=== PATIENT | female | born 1960 | race Caucasian/White ===

== ENCOUNTER 2019-05-10 12:42 | Outpatient (CLI) | payer OTHER, SELFPAY ==
--- NOTE | 2019-05-10 12:53 | ECHO_ITS ---
Patient Info Name: Lexii Kim Age: 59 years : 1960 Gender: Female Ht: 63 in Wt: 200 lbs BSA: 2.05 m2 HR: 58 bpm BP: 132 / 87 mmHg Technical Quality: Good Exam Date: 05/10/2019 1:02 PM Exam Location: [facility] [place] Patient Status: Outpatient Admit Date: 05/10/2019 Staff Ordering Physician: Renny Rueda DO Contract Assistant: Brit Juan RDCS Attending Provider: Renny Rueda DO Referring Physician: Mohit SPAULDING; Exam Type: CA echo doppler color flow Study Info Indications I71.2 - Thoracic aortic aneurysm, without rupture Complete two-dimensional, color flow and Doppler transthoracic echocardiogram is performed. Summary 1. Left ventricular chamber dimension is normal. 2. Left ventricular systolic function is normal, estimated at 60-65%. 3. The left ventricular diastolic function is normal. 4. E/e' 8 is minimally elevated. 5. Global longitudinal strain is normal at -20.0%. 6. There is mild mitral valve regurgitation. 7. There is mild tricuspid valve regurgitation. 8. No pulmonary hypertension, estimated pulmonary arterial systolic pressure is 28 mmHg. Left Ventricle E/e' 8 is minimally elevated. Global longitudinal strain is normal at -20.0%. Left ventricular chamber dimension is normal. Left ventricular systolic function is normal, estimated at 60-65%. The left ventricular diastolic function is normal. Right Ventricle Right ventricular chamber dimension is normal. Right ventricular systolic function is normal. Left Atria Left atrial chamber dimension is normal. Right Atria Right atrial chamber dimension is normal. Aortic Valve The aortic valve is trileaflet. There is no aortic valve stenosis. There is no aortic valve regurgitation. Pulmonic Valve There is no pulmonic regurgitation. Mitral Valve There is no mitral valve stenosis. There is mild mitral valve regurgitation. Tricuspid Valve There is mild tricuspid valve regurgitation. No pulmonary hypertension, estimated pulmonary arterial systolic pressure is 28 mmHg. Pericardium/Pleural There is no pericardial effusion. Inferior Vena Cava Normal inferior vena cava with >50% collapse upon inspiration consistent with normal right atrial pressure, 5 mmHg. Aorta The aortic root size at the sinus of Valsalva is normal. Left Ventricular Outflow Tract Name Value Normal LVOT 2D LVOT Diameter 1.9 cm LVOT Doppler LVOT Peak Gradient 6 mmHg LVOT Mean Gradient 3 mmHg LVOT VTI 32 cm LVOT VTI/AV VTI Ratio 0.8 LVOT Stroke Volume 93 ml LVOT CO 4.5 l/min LVOT CI 2.2 l/min/m2 Pulmonic Valve Name Value Normal RVOT Doppler RVOT Peak Gradient
== END 2019-05-10 12:43 | disposition home or self-care (01) ==
PROVIDERS: Visit Provider Internal Medicine Cardiovascular Disease
DX: I71.2 Thoracic aortic aneurysm, without rupture (principal)
CPT/HCPCS: 93306

== ENCOUNTER 2019-08-03 14:50 | Outpatient (CLI) | payer OTHER, SELFPAY ==
--- NOTE | ~2019-08-03 | US_ITS ---
EXAMINATION: US pelvic complete DATE: 08/03/2019 16:33 INDICATION: Vaginal mass seen on physical examination. Abnormal vaginal bleeding. Comparison:No prior studies for comparison. TECHNIQUE: Multiple transabdominal sonographic images of the pelvis performed. FINDINGS: The uterus measures 5.4 x 2.3 x 3 cm. The endometrial complex is not visualized. There is a hypoechoic mass in the vaginal canal measuring 2.8 x 2.4 x 1 cm. Ovaries are not visualized. Examina tion is limited due to patient body habitus. The right ovary measures and the left ovary measures . There are small follicles in each ovary. There is no free fluid in the pelvis. There are no abnormal masses seen on either side. IMPRESSION: 1. Limited study. 2.8 cm hypoechoic mass located within the vaginal canal. Cannot exclude malignancy. Recommend further clinical evaluation. Reviewed, dictated and finalized at location A. IMPRESSION: 1. Limited study. 2.8 cm hypoechoic mass located within the vaginal canal. Anne ot exclude malignancy. Recommend further clinical evaluation.
== END 2019-08-03 14:51 | disposition home or self-care (01) ==
PROVIDERS: PCP Physician Assistant; Visit Provider Obstetrics & Gynecology Gynecology
DX: N89.9 Noninflammatory disorder of vagina, unspecified (principal)
CPT/HCPCS: 76856

== ENCOUNTER 2019-08-17 06:28 | Outpatient (CLI) | payer OTHER, SELFPAY ==
[2019-08-17 17:05] LABS: SARS-CoV-2 RNA PCR Negative
== END 2019-08-17 06:29 | disposition home or self-care (01) ==
LOC: ANHCOVIDDT 06:28
PROVIDERS: PCP Physician Assistant; Visit Provider Obstetrics & Gynecology Gynecology
DX: Z01.818 Encounter for other preprocedural examination (principal); Z11.59 Encounter for screening for other viral diseases
CPT/HCPCS: 87635; U0003

== ENCOUNTER 2019-08-17 08:44 | Outpatient (CLI) | payer OTHER, SELFPAY ==
--- NOTE | 2019-08-17 09:07 | ECG_ITS ---
Measurements Intervals [place] Rate: 50 P: 24 NH: 167 QRS: 18 QRSD: 83 T: 33 QT: 405 QTc: 372 Interpretive Statements SINUS BRADYCARDIA EARLY PRECORDIAL R/S TRANSITION BORDERLINE ECG Electronically Signed On 08-17-2019 9:33:09 CDT by Renny Rueda D.O.
--- NOTE | 2019-08-20 12:48 | OP_ITS ---
DATE OF PROCEDURE: 08/20/2019 PREOPERATIVE DIAGNOSIS: Vaginal mass. POSTOPERATIVE DIAGNOSIS: Vaginal mass. PROCEDURE PERFORMED: Excision of vaginal mass. SURGEON: Brandi Paz M.D. ANESTHESIA: General with LMA. ESTIMATED BLOOD LOSS: 5 cc. PATHOLOGY: Vaginal mass in pieces. DESCRIPTION OF PROCEDURE: The patient was taken to the operating room, placed under anesthesia in the dorsal lithotomy position. From the prep, the patient is having vaginal bleeding. The Miguelito speculum is required to be able to enter the vaginal canal. The speculum is opened laterally to allow visualization of the mass anteriorly into the right. The mass is grasped with coated pickups and using Bovie cautery circumferentially excised with the Bovie cautery. The base of the mass is amputated using Barcenas scissors. The defect is Bovie cauterized and Monsel's solution is applied. Good hemostasis is noted. With the prior radiation therapy, the tissue does not appear that it would hold sutures well, therefore the Bovie cautery and the Monsel's were used for hemostasis and closure. The instruments were removed. The patient was awakened from anesthesia and taken to Recovery in stable condition. D I MT: [facility]
== END 2019-08-17 08:45 | disposition home or self-care (01) ==
PROVIDERS: PCP Physician Assistant; Visit Provider Anesthesiology
DX: Z01.810 Encounter for preprocedural cardiovascular examination (principal); I10 Essential (primary) hypertension; R00.1 Bradycardia, unspecified
CPT/HCPCS: 93005

== ENCOUNTER 2019-08-20 02:00 | Day surgery (SDC) | payer OTHER, SELFPAY ==
[2019-08-14 16:32] VITALS: BMI 37.2
--- NOTE | 2019-08-20 08:03 | PM.HPGS ---
History of Present Illness History of Present Illness Consent: Risks, benefits, and alternatives have been discussed and questions answered. Patient agrees to proceed with procedure. Chief complaint: Vaginal Mass Narrative: Lexii Kim is a 59 year old female with a 12 year history of rectal and vaginal bleeding. 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 Her GI and oncology have followed her GI issues due to prior rectal/anal carcinoma. Patient recently saw urologist due to left kidney at minimal function due to obstruction. Patient states urologist told her she has a vaginal mass that is bleeding so patient was referred to me. Discussed with patient that the lesion appears very vascular. Recommend to further evaluate under anesthesia and biopsy. Possible pathology discussed with the patient. Risks of infection, bleeding, and injury to surrounding organs discussed with patient. Risks of poor healing reviewed with history of radiation. Patient agrees to proceed. 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) Essential hypertension Heart murmur Hydroureter (normal spontaneous vaginal delivery) x 3 Radiation proctitis Renal atrophy CKD-3A Surgical History Surgical History (Updated 08/20/19 @ 08:10 by Brandi Paz MD) History of cholecystectomy History of hernia repair History of laminectomy S/P tubal ligation Family History Family History (Updated 04/24/19 @ 13:08 by Fina Walter CMA) Father Heart disease Hypertension Mother Hypertension Renal disease Sibling Hypertension IBS (irritable bowel syndrome) Irregular heart beat Social History Social History (Updated 04/24/19 @ 13:08 by Fina Walter CMA) Smoking status: Never smoker Alcohol intake: current Gender identity (if verbalized by the patient): Female Meds Home Medications and Allergies Home Medications Medication Instructions Recorded Confirmed Type cholecalciferol (vitamin D3) 25 25 mcg PO DAILY 04/23/19 08/14/19 History mcg (1,000 unit) capsule hydrocortisone 2.5 % topical cream 1 applic TOPICAL DAILY PRN gm 04/23/19 08/14/19 History hydrocortisone acetate 25 mg 25 mg RECTAL DAILY 04/23/19 08/14/19 History rectal suppository hyoscyamine sulfate 0.125 mg tablet 0.125 mg PO Q4H PRN tablet 04/23/19 08/14/19 History mecobalamin (vitamin B12) 1,000 1,000 mcg SUBLINGUAL DAILY 04/23/19 08/14/19 History mcg disintegrating tablet,sublingual acetaminophen 650 mg 650 mg PO Q12H 04/24/19 08/14/19 History tablet,extended release lisinopril 10 mg tablet 10 mg PO DAILY #30 tablet 04/24/19 08/14/19 Rx metoprolol succinate [Toprol XL] 12.5 mg PO BID 08/14/19 08/14/19 History Allergies Allergy/AdvReac Type Severity Reaction Status Date / Time No Known Allergies Allergy Verified 08/14/19 17:06 Exam Const: General: healthy appearing and alert Orientation/consciousness: patient oriented x3 Cardio: Rate: regular rate Rhythm: regular rhythm GI: GI Palp: Yes Soft to palpation, No Tenderness to palpation present (GI) and No Palpable mass present : External Female Exam: normal external appearance and other (atrophic) Speculum Exam - Vagina: vaginal bleeding, mass (purple, exophytic mass in mid,upper, monica. 2 cm, soft, feels eroded distal) and other (radiation changes; ) Speculum Exam - Cervix: normal appearance of the cervix Bimanual exam- vagina & uterus: uterine size normal and consistency normal Bimanual Exam- Adnexa, other: normal adnexae and No adnexal tenderness Neuro: General: patient oriented x3 Assessment and Plan Assessment and plan (1) Vaginal mass: Code(s): N89.8 - Other specified noninflammatory disorders of vagina Status: Acute Assessmen
[2019-08-20] MEDS: LACTATED RINGERS 1,000 ML 30 ML IV CONT (10:00)
--- NOTE | 2019-08-20 10:29 | WPDANESEPPF ---
Anes - Initial Pre Proc Eval Procedure: Operation Date: 08/20/19 11:30 Proposed Procedures p Vaginal Core Biopsy - Brandi Paz MD Date/Time: 08/20/19 10:29 Surgeon: Brandi Paz MD Pre Op Diagnosis: Vaginal Mass Patient Data Age: 59 Gender: F Height: 5 ft 3 in Weight: 96.4 kg Allergies Allergy/AdvReac Type Severity Reaction Status Date / Time No Known Allergies Allergy Verified 08/20/19 09:48 Home Medications Medication Instructions Recorded Confirmed Type cholecalciferol (vitamin D3) 25 25 mcg PO DAILY 04/23/19 08/14/19 History mcg (1,000 unit) capsule hydrocortisone 2.5 % topical cream 1 applic TOPICAL DAILY PRN gm 04/23/19 08/14/19 History hydrocortisone acetate 25 mg 25 mg RECTAL DAILY 04/23/19 08/14/19 History rectal suppository hyoscyamine sulfate 0.125 mg tablet 0.125 mg PO Q4H PRN tablet 04/23/19 08/14/19 History mecobalamin (vitamin B12) 1,000 1,000 mcg SUBLINGUAL DAILY 04/23/19 08/14/19 History mcg disintegrating tablet,sublingual acetaminophen 650 mg 650 mg PO Q12H 04/24/19 08/14/19 History tablet,extended release lisinopril 10 mg tablet 10 mg PO DAILY #30 tablet 04/24/19 08/14/19 Rx metoprolol succinate [Toprol XL] 12.5 mg PO BID 08/14/19 08/20/19 History Patient hx anesthesia problems: none Family hx anesthesia problems: none PMFSH Past Medical History Medical History Anemia Arthritis 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) Essential hypertension Heart murmur Hydroureter (normal spontaneous vaginal delivery) x 3 Radiation proctitis Renal atrophy CKD-3A Surgical History Surgical History History of cholecystectomy History of hernia repair History of laminectomy S/P tubal ligation Family History Family History Father Heart disease Hypertension Mother Hypertension Renal disease Sibling Hypertension IBS (irritable bowel syndrome) Irregular heart beat Social History Social History Smoking status: Never smoker Alcohol intake: current Gender identity (if verbalized by the patient): Female Anes - Eval Final PreProcedure Day of Procedure 08/20/19 10:29 Patient weight: obese Heart: regular rate and rhythm Lungs: clear to auscultation Airway: Mallampati scale class II Neurological: alert and oriented Last oral intake: >/= 8 hours ASA classification: III Emergent: no Anesthetic plan: proceed Anesthesia type and monitoring: general GIVS and standard monitoring Informed Consent: The patient's anesthetic plan and its attendant risks and benefits were discussed with the patient/family/POA. Questions were solicited and answers provided to the satisfaction of the patient/family/POA.
[2019-08-20] MEDS: LIDO 1%/EPINEPHRINE 1:100,000 20 ML VIAL INFILTRATE (11:32)
[2019-08-20 12:00] VITALS: BP 169/102; PULSE 86; RESP 19; TEMP 36.3; O2SAT 99
--- NOTE | 2019-08-20 12:00 | PM.OP ---
Procedure Note - Brief Procedure Note - Brief Date of procedure: 08/20/19 Pre-op diagnosis: Vaginal Mass Post-op diagnosis: same Procedure performed: excision of vaginal mass Anesthesia: GLMA Surgeon: Brandi Paz MD Estimated blood loss (mL): 5 Drains: No Packing: No Pathology: yes (vaginal mass in pieces) Complications: No immediate complications Condition: stable Disposition: PACU Findings: purple mass anterior right mid vagina
--- NOTE | 2019-08-20 12:05 | OP_ITS ---
This report was moved to the correct visit, [id number] on 08/21/2019. Original report was signed by Dr. Brandi Paz on 08/20/2019 at 1529. DATE OF PROCEDURE: 08/20/2019 PREOPERATIVE DIAGNOSIS: Vaginal mass. POSTOPERATIVE DIAGNOSIS: Vaginal mass. PROCEDURE PERFORMED: Excision of vaginal mass. SURGEON: Brandi Paz M.D. ANESTHESIA: General with LMA. ESTIMATED BLOOD LOSS: 5 cc. PATHOLOGY: Vaginal mass in pieces. DESCRIPTION OF PROCEDURE: The patient was taken to the operating room, placed under anesthesia in the dorsal lithotomy position. From the prep, the patient is having vaginal bleeding. The Miguelito speculum is required to be able to enter the vaginal canal. The speculum is opened laterally to allow visualization of the mass anteriorly into the right. The mass is grasped with coated pickups and using Bovie cautery circumferentially excised with the Bovie cautery. The base of the mass is amputated using Barcenas scissors. The defect is Bovie cauterized and Monsel's solution is applied. Good hemostasis is noted. With the prior radiation therapy, the tissue does not appear that it would hold sutures well, therefore the Bovie cautery and the Monsel's were used for hemostasis and closure. The instruments were removed. The patient was awakened from anesthesia and taken to Recovery in stable condition. Taylor I MT: [facility] Dictated By: Brandi Paz MD 08/20/19 1205 Transcribed Date/Time: 08/20/19 1240 Signed By: Brandi Paz MD 08/20/19 [id number] [facility]
[2019-08-20 12:15] VITALS: BP 113/70; PULSE 58; RESP 13; O2SAT 96
[2019-08-20 12:24] VITALS: BP 140/63; PULSE 62; RESP 14
[2019-08-20 13:05] VITALS: BP 129/66; PULSE 52; RESP 14
== END 2019-08-20 13:20 | disposition home or self-care (01) ==
PROVIDERS: PCP Physician Assistant; Visit Provider Obstetrics & Gynecology Gynecology
PROC: (CPT 57135; principal; 2019-08-20 11:30)
DX: N76.5 Ulceration of vagina (principal); Z85.048 Personal history of other malignant neoplasm of rectum, rectosigmoid junction, and anus; Z92.21 Personal history of antineoplastic chemotherapy; Z92.3 Personal history of irradiation; K62.7 Radiation proctitis; I12.9 Hypertensive chronic kidney disease with stage 1 through stage 4 chronic kidney disease, or unspecified chronic kidney disease; N18.3 Chronic kidney disease, stage 3 (moderate)
CPT/HCPCS: 57135; 88304; 88305; A9270; J0330; J1100; J1200; J2001; J2250; J2405; J3010; J7120

== ENCOUNTER 2019-11-01 12:53 | Outpatient (CLI) | payer OTHER, SELFPAY ==
--- NOTE | ~2019-11-01 | US_ITS ---
EXAMINATION: US venous doppler LE RT EXAM DATE: 11/01/2019 14:02 INDICATION: Right foot, ankle swelling. TECHNIQUE: Multiple grayscale, color flow and Doppler images of the right lower extremity deep venous system were obtained and reviewed. There is no prior study for comparison. FINDINGS: The right common femoral, femoral and profunda veins demonstrate normal color flow, respira tory variation, augmentation and compressibility. Compressibility, color flow confirmed within the r ight popliteal, posterior tibial, peroneal, and greater saphenous veins. IMPRESSION: 1. No right lower extremity deep venous thrombosis. Reviewed, dictated and finalized at location A.
--- NOTE | ~2019-11-01 | DEXA_ITS ---
Bone Density Report Name: Lexii Kim Age: 59 Sex: Female Ethnicity: White Date of : 1960 Indication: postmenopausal; parental hip fracture; height loss; prior fracture; cancer; Referring Provider: YUSRA DOWNING Study: Bone densitometry was performed. Exam Date: November 01, 2019 Accession number: [id number] Bone Density: Region BMD T-score Z-score Classification AP Spine (L1-L4) 0.897 -1.4 0.1 Osteopenia Femoral Neck (Left) 0.707 -1.3 0.0 Osteopenia Total Hip (Left) 0.837 -0.9 0.1 Normal Total Hip Bilateral Avg 0.804 -1.1 -0.2 Osteopenia Femoral Neck (Right) 0.618 -2.1 -0.8 Osteopenia Total Hip (Right) 0.769 -1.4 -0.4 Osteopenia World Health Organization criteria for BMD impression classify patients as: Normal (T-score at or above -1.0), Osteopenia (T-score between -1.0 and -2.5), or Osteoporosis (T-score at or below -2.5). 10-year Fracture Risk(1): Major Osteoporotic Fracture 28% Hip Fracture 2.0% Reported Risk Factors: [place] (), Neck BMD=0.618, BMI=39.3, previous fracture, parental fracture (1) FRAX(R) Version 3.08. Fracture probability calculated for an untreated patient. Fracture probability may be lower if the patient has received treatment. Clinical Information Provided by Patient: Has had a low trauma fracture Parent has had a hip fracture Has used the following medications: Vitamin D Has the following medical conditions: Cancer Patient maximum height was 63.5 Menopause Age: 39 No regular weight bearing exercise Does not regularly consume dairy products Onset of menses at age 13 Number of children 3 Impression: The patient has low bone mass, based on the Right Femoral Neck T-score. The patient has an estimated ten-year risk of hip fracture of 2% and an estimated ten-year risk of major fracture of 28%, based on the WHO FRAX algorithm. The patient has risk factors, including: parental hip fracture, previous fracture. Discussion: BONE DENSITY IS LOW AT ONE OR MORE SKELETAL SITES. THE PATIENT'S BMD AND CLINICAL RISK FACTORS CONTRIBUTE TO THIS PATIENT'S INCREASED RISK OF FRACTURE. This patient's lowest T-score is low at one or more skeletal sites. It meets the World Health Organization's (WHO) criteria for ?low bone mass? (T-score between -1.0 and -2.5). The patient's 10-year risk of a major osteoporotic fracture as calculated by FRAX exceeds the threshold where pharmacological therapy is recommended by the National Osteoporosis Foundation (NOF). However, all treatment decisions require clinical judgment and consideration of individual patient factors, including patient preferences, comorbidities, previous drug use, risk factors not captured in the FRAX model (e.g., frailty, falls, vitamin D deficiency, increased bone turnover, interval significant decline in bone densit
== END 2019-11-01 12:54 | disposition home or self-care (01) ==
PROVIDERS: PCP Physician Assistant; Visit Provider Obstetrics & Gynecology Gynecology
DX: Z78.0 Asymptomatic menopausal state (principal); M79.89 Other specified soft tissue disorders; M85.88 Other specified disorders of bone density and structure, other site; M85.852 Other specified disorders of bone density and structure, left thigh; M85.851 Other specified disorders of bone density and structure, right thigh
CPT/HCPCS: 77080; 93971

== ENCOUNTER 2020-01-23 11:29 | Emergency (ER) | payer OTHER, SELFPAY ==
--- NOTE | ~2020-01-23 | US_ITS ---
EXAMINATION:US venous doppler LE RT INDICATION:Right leg pain TECHNIQUE: Multiple grayscale, color flow and Doppler images of the right lower extremity deep venous systems were obtained and reviewed. COMPARISON:11/01/2019 FINDINGS: The common femoral, superficial femoral and popliteal veins demonstrate normal respiratory variation, augmentation and compressibility. Color flow is also seen within the posterior tibial, pe roneal, greater saphenous and profunda veins. IMPRESSION: 1: No lower extremity deep venous thrombosis. Reviewed, dictated and finalized at location B.
[2020-01-23 11:45] VITALS: BP 168/95; PULSE 74; RESP 20; TEMP 36.1; O2SAT 97
--- NOTE | 2020-01-23 12:03 | ED.GENADULT ---
HPI - General Adult General Chief complaint: Extremity Injury, Lower Stated complaint: Shooting pain in r leg Source: patient Mode of arrival: ambulatory Limitations: no limitations History of Present Illness HPI narrative: Lexii is a 59F with a PMH of obesity, HTN, OA, anemia, thoracic aortic aneurysm and renal atrophy that presented to the ED with right lower extremity pain. She has had pain that is gradually getting worse for about a month. It started after she was diagnosed with a mild case of COVID19. It is worse when she is sitting with the leg dangling or with dorsiflexion of the foot but can be better with walking. Pain is worse on the lateral side. No erythema or warmth reported. Sometimes she gets a tingling pain that shoots to her foot or up her leg. No CP, SOB or syncope. No trauma reported. Related Data Home Medications Medication Instructions Recorded Confirmed cholecalciferol (vitamin D3) 25 25 mcg PO DAILY 04/23/19 01/23/20 mcg (1,000 unit) capsule acetaminophen 650 mg 650 mg PO Q12H 04/24/19 01/23/20 tablet,extended release metoprolol succinate [Toprol XL] 12.5 mg PO BID 08/14/19 01/23/20 Allergies Allergy/AdvReac Type Severity Reaction Status Date / Time No Known Allergies Allergy Verified 10/16/19 13:52 Review of Systems Constitutional: Constitutional: Reports no additional constitutional complaints Eyes: Eyes: Reports no additional eye complaints ENT: Reports system reviewed and no additional complaints, except as documented Cardiovascular: Cardiovascular: Reports no additional cardiovascular complaints Respiratory: Respiratory: Reports no additional respiratory complaints Gastrointestinal: Gastrointestinal: Reports no additional gastrointestinal complaints Musculoskeletal: Musculoskeletal: Reports as per HPI Integumentary/Breasts: Skin/Breast: Reports system reviewed and no additional complaints, except as docu Neurologic: Reports system reviewed and no additional complaints, except as documented Psychiatric: Psychiatric: Reports no additional psychiatric complaints Endocrine: Endocrine: Reports no additional endocrine complaints Hematologic/Lymphatic: Hematologic/Lymphatic: Reports no additional hematologic/lymphatic complaints Allergic/Immunologic: Allergic/Immunologic: Reports no additional allergic/immunologic complaints [facility] Past Medical History Medical History (Updated 01/23/20 @ 13:19 by Raffy King DO) Anemia Arthritis 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) Essential hypertension Heart murmur Hydroureter (normal spontaneous vaginal delivery) x 3 Radiation proctitis Renal atrophy CKD-3A Surgical History Surgical History History of cholecystectomy History of hernia repair History of laminectomy S/P tubal ligation Family History Family History Father Heart disease Hypertension Mother Hypertension Renal disease Sibling Hypertension IBS (irritable bowel syndrome) Irregular heart beat Social History Social History Smoking status: Never smoker Alcohol intake: current Gender identity (if verbalized by the patient): Female Exam Const: General: no acute distress Orientation/consciousness: patient oriented x3 HENMT: Head: normal to inspection Eyes: Conjunctivae: conjunctivae normal Pupils: Equal, round and reactive pupils present Neck: Neck: normal visual inspection Chest: Chest palpation & inspection: normal inspection of the chest Resp: Effort & Inspection: normal respiratory effort Cardio: Rate: regular rate Skin: General skin exam: normal color Rashes: no rashes Neuro: General: patient oriented x3 and moves all extremities Extrem: Other: Right calf had significant varicose veins, was a few cm larger in cir
[2020-01-23 12:19] LABS: Hematocrit 36.6 % (35.0-49.0); Hemoglobin 11.9 g/dL (12.0-15.0); Mean Corpuscular HGB Conc 32.5 g/dL (32.0-36.0); Mean Corpuscular Hemoglobin 29.3 pg (27.0-31.0); Mean Corpuscular Volume 90.1 fL (78.0-102.0); Platelet Count Result 251 K/mm3 (150-420); Red Blood Count 4.06 M/mm3 (4.20-5.40); Red Cell Distribution Width 13.7 % (11.6-14.4); White Blood Count 3.9 K/mm3 (4.8-10.8)
[2020-01-23 12:43] LABS: Band Neutrophils Percent 0 % (0-6); Eosinophils Absolute Manual 0.15 K/mm3 (0.02-0.5); Eosinophils Percent Manual 4 % (1-6); Lymphocytes Percent Manual 36 % (18-44); Monocytes Absolute Manual 0.35 K/mm3 (0.1-0.90); Monocytes Percent Manual 9 % (3-9); Neutrophils Absolute Manual 1.98 K/mm3 (1.7-7.2); Neutrophils Percent Manual 51 % (46-73); Platelet Estimate Adequate (Adequate); Total Cells Counted 100
[2020-01-23 12:49] LABS: Thyroid Stimulating Hormone 0.76 uIU/mL (0.36-3.74)
[2020-01-23 13:03] LABS: Alanine Aminotransferase 18 U/L (14-59); Albumin Level 3.6 g/dL (3.4-5.0); Alkaline Phosphatase 80 U/L (46-116); Anion Gap 7 mmol/L (8-16); Aspartate Amino Transferase < 10 U/L (15-37); Bilirubin,Total 0.5 mg/dL (0.00-1.00); Blood Urea Nitrogen 15 mg/dL (7-18); Calcium 8.9 mg/dL (8.5-10.1); Carbon Dioxide 29 mmol/L (21-32); Chloride 104 mmol/L (98-108); Estimated CRCL calculation 74 ml/min; Estimated Glomerular Filt Rate > 60; Folic Acid 15.2 ng/mL (8.6->20); Glucose 95 mg/dL (70-99); Osmolality Calculated 290 mOsm/kg (285-295); Potassium 4.3 mmol/L (3.5-5.1); Sodium 140 mmol/L (136-145); Total Protein 7.4 g/dL (6.4-8.2); Vitamin B12 388 pg/mL (193-986)
[2020-01-23] MEDS: ACETAMINOPHEN 500 MG TABLET 1000 MG PO (13:12)
[2020-01-23 13:24] VITALS: BP 168/94; PULSE 67; RESP 20; TEMP 36.9; O2SAT 99
== END 2020-01-23 13:32 | disposition home or self-care (01) ==
PROVIDERS: Emergency Provider Family Medicine; PCP Physician Assistant
DX: M79.604 Pain in right leg (principal)
CPT/HCPCS: 36415; 80053; 82607; 82746; 84443; 85025; 93971; 99283; 99284

== ENCOUNTER 2020-01-30 14:51 | Outpatient (CLI) | payer OTHER, SELFPAY ==
--- NOTE | ~2020-01-30 | US_ITS ---
EXAMINATION: US soft tissue LE RT DATE: 01/30/2020 15:18 INDICATION: Synovial cyst in the right popliteal space. TECHNIQUE: Multiple grayscale and Doppler ultrasound images of the right popliteal fossa were obtaine d. COMPARISON: None FINDINGS: The popliteal and gastrocnemius arteries and veins appear normal in caliber at the popliteal fossa. N o Matamoros's cyst or other abnormal masses or fluid collections identified at the popliteal fossa. IMPRESSION: 1. No Matamorso's cyst or other abnormal masses or fluid collections at the popliteal fossa. Reviewed, dictated and finalized at location B. IMPRESSION: 1. No Matamoros's cyst or other abnormal masses or fluid collections at the poplite al fossa.
== END 2020-01-30 14:52 | disposition home or self-care (01) ==
PROVIDERS: PCP Physician Assistant; Visit Provider Physician Assistant
DX: M71.21 Synovial cyst of popliteal space [Baker], right knee (principal)
CPT/HCPCS: 76882

== ENCOUNTER 2020-05-08 09:03 | Outpatient (CLI) | payer OTHER, SELFPAY ==
[2020-05-08 10:13] LABS: Alanine Aminotransferase 17 U/L (14-59); Albumin Level 3.6 g/dL (3.4-5.0); Alkaline Phosphatase 76 U/L (46-116); Anion Gap 8 mmol/L (8-16); Aspartate Amino Transferase 10 U/L (15-37); Bilirubin,Total 0.6 mg/dL (0.00-1.00); Blood Urea Nitrogen 18 mg/dL (7-18); Calcium 9.3 mg/dL (8.5-10.1); Carbon Dioxide 31 mmol/L (21-32); Chloride 102 mmol/L (98-108); Cholesterol 206 mg/dL (0-200); Estimated Glomerular Filt Rate > 60; Glucose 93 mg/dL (70-99); HDL Direct 67 mg/dL (40-60); LDL Cholesterol Calculated 120 mg/dL (<130); Osmolality Calculated 293 mOsm/kg (285-295); Potassium 4.2 mmol/L (3.5-5.1); Sodium 141 mmol/L (136-145); Total Protein 7.2 g/dL (6.4-8.2); Triglycerides 94 mg/dL (0-150)
== END 2020-05-08 09:04 | disposition home or self-care (01) ==
PROVIDERS: Visit Provider Internal Medicine Cardiovascular Disease
DX: I10 Essential (primary) hypertension (principal)
CPT/HCPCS: 36415; 80053; 80061

== ENCOUNTER 2020-05-13 08:27 | Outpatient (CLI) | payer OTHER, SELFPAY ==
--- NOTE | ~2020-05-13 | CT_ITS ---
EXAMINATION: CTA chest DATE: 05/13/2020 09:46 INDICATION: Thoracic aortic aneurysm without rupture. TECHNIQUE: Computed tomographic angiography (CTA) of the chest was performed with 100 mL Omnipaque-35 0 intravenous contrast. Automated exposure control and iterative reconstruction technique were employ ed. The dose-length product was 1905.60 mGy-cm. Maximum intensity projection 3D-reconstructions of th e aorta and other arteries were constructed by the technologist on a separate workstation. COMPARISON: PET CT 12/31/2004 FINDINGS: There is minimal atelectasis in the lungs. Calcified pulmonary nodules are consistent with old granulomatous disease. No pleural effusion. The heart size is normal. No pericardial effusion. Th e aorta measures 3.6 cm at the sinuses of Valsalva, 4.2 cm in the mid ascending aorta, 2.6 cm at the isthmus, and 2.4 cm in the descending aorta. There is moderate thoracic spondylosis. IMPRESSION: 1. Ectasia of ascending aorta measuring 4.2 cm. Reviewed, dictated and finalized at location A. 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
--- NOTE | ~2020-05-13 | CT_ITS ---
EXAMINATION: CTA abdomen pelvis DATE: 05/13/2020 09:47 INDICATION: Right lower extremity pain and swelling. TECHNIQUE: Computed tomographic angiography (CTA) of the abdomen and pelvis was performed with 100 mL Omnipaque-350 intravenous contrast. Automated exposure control and iterative reconstruction techniqu e were employed. The dose-length product was 1905.60 mGy-cm. Maximum intensity projection 3D-reconstr uctions were constructed by the technologist on a separate workstation. COMPARISON: CT abdomen and pelvis 10/18/2017 FINDINGS: The visualized portions of the lung bases demonstrate minimal atelectasis. A calcified left lung nodule is consistent with old granulomatous disease. No pleural effusion. The heart size is nor mal. No pericardial effusion. There is a 6 mm cyst in the liver. There are changes of cholecystectomy . The spleen, pancreas, adrenal glands, and right kidney are normal. 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 There is severe atrophy of left kidney. There is severe left hydronephrosis and hydroureter. There is a 3 mm stone in distal left ureter. There is diverticulosis of the colon wi thout evidence of diverticulitis. The appendix is normal. There is a small sliding hiatal hernia. The re are no pathologically enlarged lymph nodes. There is no free intraperitoneal fluid. There is no de ep vein thrombosis. There is severe lower lumbar spondylosis. IMPRESSION: 1. No deep vein thrombosis. 2. Chronic 3 mm stone in distal left ureter with severe left hydronephrosis and hydroureter and sever e left kidney atrophy. 3. Small sliding hiatal hernia. Reviewed, dictated and finalized at location A. [facility] IMPRESSION: 1. No deep vein thrombosis. 2. Chronic 3 mm stone in distal left ureter with severe left hydronephrosis and hydroureter and severe left kidney atrophy. 3. Small sliding hiatal hernia.
== END 2020-05-13 08:28 | disposition home or self-care (01) ==
LOC: CHSIMG 08:28
PROVIDERS: PCP Family Medicine; Visit Provider Internal Medicine Cardiovascular Disease
DX: R22.41 Localized swelling, mass and lump, right lower limb (principal); M79.604 Pain in right leg; I71.2 Thoracic aortic aneurysm, without rupture
CPT/HCPCS: 71275; 74174; Q9967

== ENCOUNTER 2020-07-25 11:09 | Emergency (ER) | payer OTHER, SELFPAY ==
--- NOTE | 2020-07-25 11:16 | ED.GENADULT ---
HPI - General Adult General Chief complaint: Skin/Abscess/Foreign Body Stated complaint: pos yeast infection Time Seen by Provider: 07/25/20 11:17 Source: patient Mode of arrival: ambulatory Limitations: no limitations History of Present Illness HPI narrative: 60-year-old female patient presents to the [facility] with complaints of a rash to the left fold of the hip area x2 days. Patient states that it is slightly itching and feels burning. Patient states that she is gotten these before but is typically been in the summertime. Related Data Home Medications Medication Instructions Recorded Confirmed cholecalciferol (vitamin D3) 25 25 mcg PO DAILY 04/23/19 07/25/20 mcg (1,000 unit) capsule metoprolol succinate [Toprol XL] 12.5 mg PO BID 08/14/19 07/25/20 gabapentin 300 mg PO TID 07/25/20 07/25/20 Allergies Allergy/AdvReac Type Severity Reaction Status Date / Time No Known Allergies Allergy Verified 07/25/20 11:23 Review of Systems Review of Systems: Narrative: CONSTITUTIONAL: Denies fever, chills, or sweats. EYES: Denies visual changes, redness, or discharge. ENT: Denies rhinorrhea, congestion, sore throat, or otalgia. CARDIOVASCULAR: Denies chest pain, palpitations, or edema. RESPIRATORY: Denies cough or dyspnea. GASTROINTESTINAL: Denies abdominal pain, nausea, vomiting, or diarrhea. GENITOURINARY: Denies dysuria or hematuria. SKIN: Positive rash with itching and burning to left thigh/hip area x2 days MUSCULOSKELETAL: Denies back pain, joint pain, or myalgia. NEUROLOGIC: Denies headache, numbness, or weakness. PSYCHIATRIC: Denies anxiety or depression. FOR[facility]LY [facility] Past Medical History Medical History (Updated 07/25/20 @ 11:30 by SAMY Huang) Anemia Arthritis 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) Essential hypertension Heart murmur Hydroureter (normal spontaneous vaginal delivery) x 3 Radiation proctitis Renal atrophy CKD-3A Surgical History Surgical History History of cholecystectomy History of hernia repair History of laminectomy S/P tubal ligation Family History Family History Father Heart disease Hypertension Mother Hypertension Renal disease Sibling Hypertension IBS (irritable bowel syndrome) Irregular heart beat Social History Social History Smoking status: Never smoker Alcohol intake: current Gender identity (if verbalized by the patient): Female Comments At the time of my signature I agree with nursing past medical history, surgical, social, and family history. There is no relevant family history pertinent to the presenting complaint. Exam Narrative: Exam Narrative: GENERAL: Well-appearing, well-nourished, and in no acute distress. HEAD: Normocephalic, atraumatic. EYES: PERRLA and EOMI. ENT: Nares clear, no rhinorrhea or epistaxis. Mucous membranes moist. NECK: Supple. No lymphadenopathy CHEST: Clear to auscultation. No respiratory distress. HEART: Regular rate and rhythm. No murmur heard. Normal peripheral pulses. ABDOMEN: Soft, nontender, nondistended, normal active bowel sounds. EXTREMITIES: Normal range of motion. No edema. SKIN: Warm, dry, patient has erythemic flat shiny rash noted to the fold of the left hip area. There is no open wounds or drainage noted at this time. The rash along the fold line measures approximately 10 cm. NEURO: No focal deficits. Alert and oriented x3. Course Vital Signs Vital signs: Vital Signs Temperature 36.6 C 07/25/20 11:18 Pulse Rate 70 07/25/20 11:18 Respiratory Rate 16 07/25/20 11:18 Blood Pressure 152/94 H 07/25/20 11:18 Pulse Oximetry 100 07/25/20 11:18 Temperature 36.6 C 07/25/20 11:18 Pulse Rate 70 07/25/20 11:18 Respiratory Rate 16 07/25/20 11:18 Blood Pressure 152/94 H
[2020-07-25 11:18] VITALS: BP 152/94; PULSE 70; RESP 16; TEMP 36.6; O2SAT 100
== END 2020-07-25 11:35 | disposition home or self-care (01) ==
PROVIDERS: Emergency Provider Nurse Practitioner Family; PCP Physician Assistant
DX: B37.2 Candidiasis of skin and nail (principal); M19.90 Unspecified osteoarthritis, unspecified site; I12.9 Hypertensive chronic kidney disease with stage 1 through stage 4 chronic kidney disease, or unspecified chronic kidney disease; N18.30 Chronic kidney disease, stage 3 unspecified; Z85.048 Personal history of other malignant neoplasm of rectum, rectosigmoid junction, and anus; R01.1 Cardiac murmur, unspecified
CPT/HCPCS: 99213; G0463

== ENCOUNTER 2020-11-27 20:40 | Emergency (ER) | payer OTHER, SELFPAY ==
[2020-11-27 20:44] VITALS: BP 184/87; PULSE 70; RESP 18; TEMP 36.8; O2SAT 100
[2020-11-27 21:01] VITALS: BP 176/97; PULSE 61; RESP 18; TEMP 36.7; O2SAT 100
--- NOTE | 2020-11-27 21:39 | ED.EYEPROB ---
HPI - Eye Problem General Chief complaint: Eye Problems Stated complaint: cyst that caused bleeding around eye Time Seen by Provider: 11/27/20 21:19 History of Present Illness HPI Narrative: Patient presents with a cyst on her right eye. Patient ports she had a cyst for the past few months over the past couple days she has had increasing pain and bruising she talk to her doctor and was referred to the ER for evaluation. She is previously seen a [facility] for this and they were monitoring and she has a follow-up appointment in a couple weeks. She denies any blurry vision photophobia pain with extraocular movement she denies any fevers, headaches, nausea, vomiting Related Data Home Medications Medication Instructions Recorded Confirmed carvedilol 11/27/20 Allergies Allergy/AdvReac Type Severity Reaction Status Date / Time No Known Allergies Allergy Verified 11/27/20 21:04 Review of Systems Review of Systems: CONSTITUTIONAL: Denies fever, chills, or sweats. EYES: Denies visual changes, redness, or discharge. ENT: Denies rhinorrhea, congestion, sore throat, or otalgia. CARDIOVASCULAR: Denies chest pain, palpitations, or edema. RESPIRATORY: Denies cough or dyspnea. GASTROINTESTINAL: Denies abdominal pain, nausea, vomiting, or diarrhea. GENITOURINARY: Denies dysuria or hematuria. SKIN: Denies rash or itching. MUSCULOSKELETAL: Denies back pain, joint pain, or myalgia. NEUROLOGIC: Denies headache, numbness, dizziness, or weakness. PSYCHIATRIC: Denies anxiety or depression. All systems reviewed & are unremarkable except as noted in HPI and below PMFSH Past Medical History Medical History (Updated 11/28/20 @ 00:00 by Background Daemon) Anemia Arthritis 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) Essential hypertension Heart murmur Hydroureter (normal spontaneous vaginal delivery) x 3 Radiation proctitis Renal atrophy CKD-3A Surgical History Surgical History History of cholecystectomy History of hernia repair History of laminectomy S/P tubal ligation Family History Family History Father Heart disease Hypertension Mother Hypertension Renal disease Sibling Hypertension IBS (irritable bowel syndrome) Irregular heart beat Social History Social History Smoking status: Never smoker Alcohol intake: current Gender identity (if verbalized by the patient): Female Exam Narrative: GENERAL: Well-appearing, well-nourished, and in no acute distress. HEAD: Normocephalic, atraumatic. EYES: PERRLA and EOMI, conjunctive is clear there is ecchymosis from the upper lid that is firm slightly mobile mass on the upper orbit that is tender there is no erythema there is no open or draining wounds ENT: Nares clear, no rhinorrhea or epistaxis. Mucous membranes moist. NECK: Supple. No masses. No JVD EXTREMITIES: Normal range of motion. No edema. SKIN: Warm, dry, no rash. NEURO: No focal deficits. Alert and oriented x3. PSYCH: Normal mood and affect. Course Vital Signs Vital signs: Vital Signs Temperature 36.8 C 11/27/20 20:44 Pulse Rate 70 11/27/20 20:44 Respiratory Rate 18 11/27/20 20:44 Blood Pressure 184/87 H 11/27/20 20:44 Pulse Oximetry 100 11/27/20 20:44 Temperature 36.7 C 11/27/20 21:01 Pulse Rate 64 11/27/20 22:14 Respiratory Rate 18 11/27/20 22:14 Blood Pressure 182/102 H 11/27/20 22:14 Pulse Oximetry 99 11/27/20 22:14 MDM - Eye Problem MDM Narrative Medical decision making narrative: H&P as above, vss, pt looks clinically well, exam cystic structure on the superior aspect of the right orbit with surrounding ecchymoses, labs/img considered, symptomatic relief available as needed, on reevaluation pt continues to looks clinically well. Cystic structure i
[2020-11-27 22:14] VITALS: BP 182/102; PULSE 64; RESP 18; O2SAT 99
--- NOTE | 2020-11-27 22:14 | PC.NURSE ---
Pt BP elevated on discharge. Dr. Aly ARIAS aware.
== END 2020-11-27 22:16 | disposition home or self-care (01) ==
PROVIDERS: Emergency Provider Emergency Medicine; PCP Physician Assistant
DX: H57.89 Other specified disorders of eye and adnexa (principal); M19.90 Unspecified osteoarthritis, unspecified site; I12.9 Hypertensive chronic kidney disease with stage 1 through stage 4 chronic kidney disease, or unspecified chronic kidney disease; N18.31 Chronic kidney disease, stage 3a; Z85.048 Personal history of other malignant neoplasm of rectum, rectosigmoid junction, and anus; Z92.21 Personal history of antineoplastic chemotherapy; Z92.3 Personal history of irradiation; Z86.2 Personal history of diseases of the blood and blood-forming organs and certain disorders involving the immune mechanism
CPT/HCPCS: 99282

== ENCOUNTER 2021-05-13 10:14 | Outpatient (CLI) | payer OTHER, SELFPAY ==
[2021-05-13 11:10] LABS: Anion Gap 10 mmol/L (8-16); Blood Urea Nitrogen 18 mg/dL (7-18); Calcium 9.4 mg/dL (8.5-10.1); Carbon Dioxide 29 mmol/L (21-32); Chloride 103 mmol/L (98-108); Estimated Glomerular Filt Rate > 60; Glucose 83 mg/dL (70-99); Osmolality Calculated 294 mOsm/kg (285-295); Potassium 3.8 mmol/L (3.5-5.1); Sodium 142 mmol/L (136-145)
== END 2021-05-13 10:15 | disposition home or self-care (01) ==
LOC: CHSLAB 10:18
PROVIDERS: PCP Physician Assistant; Visit Provider Specialist
DX: N18.9 Chronic kidney disease, unspecified (principal)
CPT/HCPCS: 36415; 80048

== ENCOUNTER 2021-06-25 09:45 | Outpatient (CLI) | payer OTHER, SELFPAY ==
--- NOTE | ~2021-06-25 | CT_ITS ---
EXAMINATION: CTA chest DATE: 06/25/2021 10:14 INDICATION: Thoracic aortic aneurysm without rupture TECHNIQUE: Computed tomographic angiography (CTA) of the chest was performed with 100 mL Omnipque-350 intravenous contrast. Maximum intensity projection 3D-reconstructions of the aorta and other arterie s were constructed by the technologist on a separate workstation. The dose-length product (DLP) was 5 36.91 mGy-cm. Automated exposure control and iterative reconstruction technique were employed. COMPARISON: 05/13/2020 FINDINGS: The thoracic aorta measures up to 4.2 cm at the level of the main pulmonary artery. There i s no dissection. The lungs are free of acute opacities. There is no pleural effusion or pneumothorax. A stable 4 mm nodule of the left lower lobe is consistent with old granulomatous disease. No patholo gically enlarged thoracic lymph nodes are identified. The heart size is normal. Moderate IMPRESSION: 1. Stable ectasia of the ascending aorta measuring up to 4.2 cm. No dissection. Reviewed, dictated and finalized at location B.
[2021-06-25 10:03] LABS: Estimated Glomerular Filt Rate > 60
== END 2021-06-25 09:46 | disposition home or self-care (01) ==
PROVIDERS: PCP Physician Assistant; Visit Provider Internal Medicine Cardiovascular Disease
DX: I71.2 Thoracic aortic aneurysm, without rupture (principal)
CPT/HCPCS: 71275; Q9967

== ENCOUNTER 2021-07-15 09:02 | Outpatient (CLI) | payer OTHER, SELFPAY | END 2021-07-15 09:03 | disposition home or self-care (01) | LOC: CHSAUDIO 09:05 | PROVIDERS: PCP Physician Assistant; Visit Provider Physician Assistant | DX: H91.91 Unspecified hearing loss, right ear (principal) | CPT/HCPCS: 92557; 92567 ==

== ENCOUNTER 2022-08-24 11:34 | Outpatient (CLI) | payer OTHER, SELFPAY ==
[2022-08-24 12:45] LABS: Cholesterol 173 mg/dL (0-200); HDL Direct 63 mg/dL (40-60)
[2022-08-24 13:07] LABS: LDL Cholesterol Calculated 95 mg/dL (<130); Triglycerides 73 mg/dL (0-150)
== END 2022-08-24 11:35 | disposition home or self-care (01) ==
LOC: CHSLAB 11:37
PROVIDERS: PCP Physician Assistant; Visit Provider Internal Medicine Cardiovascular Disease
DX: I10 Essential (primary) hypertension (principal)
CPT/HCPCS: 36415; 80061

== ENCOUNTER 2022-10-21 08:44 | Outpatient (CLI) | payer OTHER, SELFPAY ==
--- NOTE | ~2022-10-21 | DEXA_ITS ---
Bone Density Report Name: ELIZABETH REDDING Age: 62 Sex: Female Ethnicity: White Date of : 1960 Indication: postmenopausal; screening for osteoporosis; inflammatory bowel disease; cancer; end stage renal disease; Referring Provider: KIKA, NICK Study: Bone densitometry was performed. Exam Date: October 21, 2022 Accession number: [id number] Bone Density: Region BMD T-score Z-score Classification AP Spine(L1-L4) 0.911 -1.2 0.4 Osteopenia Femoral Neck (Left) 0.631 -2.0 -0.5 Osteopenia Total Hip (Left) 0.773 -1.4 -0.2 Osteopenia Femoral Neck (Right) 0.595 -2.3 -0.8 Osteopenia Total Hip (Right) 0.711 -1.9 -0.7 Osteopenia Total Hip Mean 0.742 -1.7 -0.5 Osteopenia World Health Organization criteria for BMD impression classify patients as: Normal (T-score at or above -1.0), Osteopenia (T-score between -1.0 and -2.5), or Osteoporosis (T-score at or below -2.5). 10-year Fracture Risk: FRAX not reported because: Treated for osteoporosis Clinical Information Provided by Patient: Is being treated for osteoporosis Has used the following medications: Fosamax (i.e. alendronate), Vitamin D Has the following medical conditions: Cancer, End stage renal disease, Inflammatory bowel diseases Patient maximum height was 62 Menopause Age: 39 Does not regularly consume dairy products Drinks caffeinated beverages Onset of menses at age 12 Number of children 3 Impression: The patient has low bone mass, based on the Right Femoral Neck T-score. Discussion: It is important to ask patients whether they are taking their medications and to encourage continued and appropriate compliance with their osteoporosis therapies to reduce fracture risk. It is also important to review their risk factors and encourage appropriate calcium and vitamin D intakes, exercise, fall prevention and other lifestyle measures. Follow-Up: Consider a repeat BMD and Vertebral Fracture Assessment (VFA) exam in 2 years or sooner if medically necessary, to reassess this patient's status. Reported by: LUIS on 10/21/2022 9:07:00 AM. Reviewed, dictated and finalized at location ANathalie LIPSCOMB
== END 2022-10-21 08:45 | disposition home or self-care (01) ==
PROVIDERS: PCP Physician Assistant; Visit Provider Physician Assistant
DX: Z78.0 Asymptomatic menopausal state (principal); M85.89 Other specified disorders of bone density and structure, multiple sites
CPT/HCPCS: 77080

== ENCOUNTER 2022-11-09 10:04 | Emergency (ER) | payer OTHER, SELFPAY ==
[2022-11-09 10:11] VITALS: BP 175/83; PULSE 56; RESP 17; TEMP 36.3; O2SAT 100
--- NOTE | 2022-11-09 10:15 | ED.SKABFB ---
HPI - Skin/Abscess/Foreign Bdy General Chief complaint: Skin/Abscess/Foreign Body Stated complaint: RASH Time Seen by Provider: 11/09/22 10:15 Source: patient, RN notes reviewed and old records reviewed Mode of arrival: ambulatory Limitations: no limitations History of Present Illness HPI narrative: 62-year-old female who presents to [facility] with complaints of initial red raised rash which is itchy and originally thought it was bug bites. But rash has spread to her abdomen now and is starting on her other side of neck and patient has small area to forehead. Patient reports that she has been applying Clobestasol to rash for the itching because she doesn't like taking Benadryl because it makes her too tired. Patient states that she noticed the initial rash on but it has spread to abdomen and now to other side of face and small area on fore head. Patient reports that she has been weeding in her yard and has come in contact with poison samuel, oak, or sumac plant. Patient denies any shortness of breath or any difficulty swallowing. MD complaint: rash Onset (ago): day(s) (5) Location: face, neck and chest (under breasts and on abdomen) Severity: moderate Quality: pruritic Treatments prior to arrival: OTC topical medication (steroid cream) Related Data Home Medications Medication Instructions Recorded Confirmed inulin 2 gram chewable tablet 2 g PO DAILY 08/12/22 11/09/22 (Fiber Gummies) lactobacillus combination no.4 3 3,000 mmu cells PO DAILY 08/12/22 11/09/22 billion cell capsule (Probiotic) nystatin-triamcinolone topical 1 applic topical DIRECTED 08/12/22 11/09/22 cream Allergies Allergy/AdvReac Type Severity Reaction Status Date / Time No Known Allergies Allergy Verified 11/09/22 10:45 Review of Systems Review of Systems: CONSTITUTIONAL: Denies fever, chills, or sweats. CARDIOVASCULAR: Denies chest pain, palpitations, or edema. RESPIRATORY: Denies cough or dyspnea. SKIN: Reports rash to left neck which is now spreading to her abdomen other side of neck and to forehead. MUSCULOSKELETAL: Denies joint pain or myalgia. NEUROLOGIC: Denies headache, numbness, or weakness. All systems reviewed & are unremarkable except as noted in HPI and below PMFSH Past Medical History Medical History (Updated 11/09/22 @ 11:57 by iBanca Colby NP) Anemia Arthritis 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) Essential hypertension Heart murmur Hydroureter Kidney stones (normal spontaneous vaginal delivery) x 3 Radiation proctitis Renal atrophy CKD-3A Surgical History Surgical History History of cholecystectomy History of hernia repair History of laminectomy S/P tubal ligation Family History Family History Father Heart disease Hypertension Mother Hypertension Renal disease Sibling Hypertension IBS (irritable bowel syndrome) Irregular heart beat Social History Social History (Reviewed 08/12/22 @ 14:47 by Saundra Newby [facility]) Smoking status: Never smoker Alcohol intake: current Gender identity (if verbalized by the patient): Female Comments At time of signature, agree with nursing past medical, surgical, social and family history. There is no relevant family history pertinent to the presenting complaint Exam Narrative: GENERAL: Well-appearing, well-nourished, and in no acute distress. HEAD: Normocephalic, atraumatic. EYES: PERRLA, conjunctivae clear, and EOMI. ENT: Mucous membranes moist. Oropharynx without edema, erythema or lesions. NECK: Supple. No lymphadenopathy CHEST: Clear to auscultation. No respiratory distress. HEART: Regular rate and rhythm. SKIN: Warm, dry.? Patches of red raised rash noted to left neck with new spreading rash on right neck, under breast and on abdomen that is itchy, smal
[2022-11-09] MEDS: methylPREDNISolone ACETATE 80 MG/ML VIAL IM (10:26)
== END 2022-11-09 10:38 | disposition home or self-care (01) ==
PROVIDERS: Emergency Provider Registered Nurse; PCP Physician Assistant
DX: L23.7 Allergic contact dermatitis due to plants, except food (principal); I12.9 Hypertensive chronic kidney disease with stage 1 through stage 4 chronic kidney disease, or unspecified chronic kidney disease; N18.31 Chronic kidney disease, stage 3a; M19.90 Unspecified osteoarthritis, unspecified site; R01.1 Cardiac murmur, unspecified; Z85.048 Personal history of other malignant neoplasm of rectum, rectosigmoid junction, and anus; Z92.3 Personal history of irradiation; Z92.21 Personal history of antineoplastic chemotherapy
CPT/HCPCS: 96372; 99213; G0463; J1040

== ENCOUNTER 2024-06-08 12:41 | Outpatient (CLI) | payer MEDICARE, SELFPAY ==
[2024-06-08 13:00] LABS: Basophils Absolute Auto 0.04 K/mm3 (0.00-0.10); Basophils Percent Auto 0.9 % (0.0-1.0); Eosinophils Absolute Auto 0.11 K/mm3 (0.02-0.50); Eosinophils Percent Auto 2.5 % (1.0-6.0); Hematocrit 43.3 % (35.0-42.0); Hemoglobin 13.7 g/dL (11.7-13.8); Immature Granulocyte Absolute 0.01 K/mm3 (0.00-0.00); Immature Granulocyte Percent A 0.2 % (0.0-0.0); Lymphocytes Absolute Auto 1.58 K/mm3 (1.10-4.50); Lymphocytes Percent Auto 36.4 % (18.0-42.0); Mean Corpuscular HGB Conc 31.6 g/dL (32-36); Mean Corpuscular Hemoglobin 28.2 pg (27.0-31.0); Mean Corpuscular Volume 89.3 fL (78.0-102.0); Mean Platelet Volume 10.4 fl (9.2-11.8); Monocytes Absolute Auto 0.35 K/mm3 (0.10-0.90); Monocytes Percent Auto 8.1 % (2.0-11.0); Neutrophils Absolute Auto 2.25 K/mm3 (1.70-7.20); Neutrophils Percent Auto 51.9 % (50.0-70.0); Platelet Count Result 276 K/mm3 (150-420); Red Blood Count 4.85 M/mm3 (4.20-5.40); Red Cell Distribution Width 14.2 % (11.6-14.4); White Blood Count 4.3 K/mm3 (4.8-10.8)
--- OUTSIDE RECORDS SUMMARY | 2024-06-08 13:02 | XMS_ITS | Patient Health Summary ---
Author Organization [facility] Address [address] [place] [address] Care Team Providers Care Brisket Puller Name Role Phone Ragini Baumann PA-C Primary Care Provider Note from [facility],non-owned Affiliates and Associated Physician Practices is amultiple site organization consisting of ambulatory clinics and hospital sitesin [place], [place], [place] and [place]. This disclosure is being madepursuant to the Care Everywhere program and may not contain all information available regarding this patient. Last updated 17.[facility] Allergies No known active allergies Medications * Be aware that medications may not be up to date on this document. Alwaysverify current medications with the patient. * lisinopril (Prinivil; Zestril) 10 MG tablet(Started 03/14/2022) Take 1 (one) tablet by mouth once daily * metoprolol succinate XL 24hr (Toprol XL) 25 MG tablet(Started 12/14/2021) Take 0.5 (one-half) tablet by mouth 2 times daily * alendronate (Fosamax) 70 MG tablet Take 1 (one) tablet by mouth every 7 days Take in morning with full glass of water on empty stomachand remain upright for 30 min * clobetasol emollient (Temovate E) 0.05 % cream Apply to affected area 2 times daily * nystatin (Mycostatin) [id number] UNIT/GM ointment(Started 06/16/2022) Mix with the clobetasol ointment and apply to external vulvar tissues twice daily. 30 g 3 refills by 06/16/2023 * clobetasol (Temovate) 0.05 % ointment(Started 06/16/2022) Apply to vulvar tissues twice daily 3 refills by 06/16/2023 Active Problems Problem Noted Date Diagnosed Date Chronic migraine without aur a without status migrainosus, not intractable 07/17/2021 Vitamin D deficiency 12/10/2020 Stage 3a chronic kidney disease 12/10/2020 Lumbar radiculopathy 06/18/2020 Essential hypertension 04/26/2019 Diverticulosis of colon 04/26/2019 Atrophy of left kidney 04/26/2019 Hematochezia 04/26/2019 Social History Tobacco Use Types Packs/Day Years Used Date Smoking Tobacco: Never Passive Smoke Exposure: Never Smokeless Tobacco: Never Alcohol Use Standard Drinks/Week Comments Yes 1 (1 standard drink = 0.6 oz pur e alcohol) Sex and Gender Information Value Date Recorded Sex Assigned at Not on file Gender Identity Not on file Sexual Orientation Not on file Last Filed Vital Signs Vital Sign Reading Time Taken Comments Blood Pressure 134/82 06/16/2022 10:13 AM CDT Pulse - - Temperature 36.2 C (97.2 F) 06/16/2022 10:13 AM CDT Respiratory Rate - - Oxygen Saturation - - Inhaled Oxygen Concentration - - Weight 104.3 kg (230 lb) 06/16/2022 10:13 AM CDT Height 158 cm (5' 2.21 ) 06/16/2022 10:13 AM CDT Body Mass Index 41.79 06/16/2022 10:13 AM CDT Procedures * GA BX,VULVA/PERINEUM,ADDL LESION(Performed 05/04/2022) Performed for Vulvar lesion * GA BIOPSY VULVA/PERINEUM,ONE LESN(Performed 05/04/2022) Performed for Vulvar lesion * PATHOLOGY TISSUE(Performed 05/04/2022) Performed for Lichen sclerosus et atrophicus of the vulva, Vulvar lesion * PATHOLOGY TISSUE(Performed 05/04/2022) Performed for Vulvar lesion * CULTURE YEAST WITH DIRECT FLUORESCENT ARIN(Performed 05/04/2022) Performed for Lichen sclerosus et atrophicus of the vulva Results * GA BIOPSY VULVA/PERINEUM,ONE LESN, GA BX,VULVA/PERINEUM,ADDL LESION (05/04/2022 12:59 PM COMPOSITION STONE APPLICATOR) Narrative Alpa Bejarano MD - 05/04/2022 12:59 PM COMPOSITION STONE APPLICATOR Alpa Bejarano MD 05/04/2022 1:00 PM Procedure Note: Pre-operative diagnosis: vulvar lesions Post-operative diagnosis: KOKI Procedure Details: The risks, benefits, and alternatives were discussed in detail with the patient She states understanding of the risks, and requests to proceed with the procedure. All her questions were answered to her satisfaction, and she understands and agrees to appropriate follow up appointments. ICF obtained. The patient was placed in a dorsal lithotomy position. The biopsy sites were cleaned with multiple swabs of Betadine (unless allergic to topical iodine, in which case hibiclens was used). The biopsy sites were infiltrated with 1% lidocaine. A 6 mm punch was used to obtain both biopsies. Specimens to pathology. Hemostasis was obtained with silver nitrite. Assessment and Plan 1. Vulvar lesions: Biopies obtained and specimens to pathology. 2. Post care instructions: Keep site clean. Rinse with water after urination. Cautioned that small amount of bleeding with increased activity could occur. 3. The patient tolerated the procedure well. Alpa Negro MD PROCEDURE/MINOR HARVEY RGICAL ORDERABLES * PATHOLOGY TISSUE (05/04/2022 12:09 PM COMPOSITION STONE APPLICATOR) Only the most recent of2 resultswithin the time period is included. Case Report Surgical Pathology Report Case: [id number] Authorizing Provider: Alpa Bejarano MD Collected: 05/04/2022 12:09 PM Ordering Location: [facility] Obstetrics Received: 05/05/2022 12:40 PM Gynecology and Women's Health Pathologist: Hilario Barlow MD Specimens: A) - Vulva, clit B) - Vulva 05/06/2022 1:01 PM COMPOSITION STONE APPLICATOR [facility] Final Diagnosis Vulva, clitoris, biopsy (A): - Squamous epithelium with parakeratosis and reactive changes - Negative for intraepithelial lesions and carcinoma Vulva, biopsy (B): - Benign hemangioma - Negative for intraepithelial lesions and carcinoma 05/06/2022 1:[address] [facility] Microscopic Description and Comment Microscopic examination substantiates the final diagnosis. 05/06/2022 1:[address] [facility] Clinical History The patient is a 62-year-old woman with a history of biopsy-proven lichen sclerosus and anal cancer status post radiation in 1999 who presents with elevated nodular areas suspicious for squamous cell carcinoma. 05/06/2022 1:[address] [facility] Gross Description The requisition and specimen(s) are identified with the patient's name Lexii Kim. Received in formalin, specimen A, clit is a 0.6 x 0.5 x 0.2 cm kline-white scaly tissue. The resection margin is inked green. The tissue is sectioned and entirely submitted in cassette A1. Received in formalin, specimen B, labeled with the patient's demographics is a 0.6 x 0.4 x 0.3 cm kline-white nodular tissue. The resection margin is inked green. The tissue is bisected and entirely submitted in cassette B1. DF 05/06/2022 1:[address] [facility] Disclaimer The performance characteristics of all immunohistochemical and indirect immunofluorescence stains (if any) cited in this report were determined by the Histopathology Laboratory of [facility]. Some of these tests were developed by our own laboratory and have not been cleared or approved by the US Food and Drug Administration. The FDA does not require this test to go through premarket FDA review. These tests are used for clinical purposes. They should not be regarded as investigational or for research. This laboratory is certified under the Clinical Laboratory Improvement Amendments (CLIA) as qualified to perform high complexity clinical laboratory testing. This case has been personally reviewed and interpreted by the attending (teaching) pathologist. 05/06/2022 1:[address] [facility] Embedded Images 05/06/2022 1:[address] [facility] Pathology/Cytology ENTIRE VULVA / Unknown 05/04/2022 12:09 PM COMPOSITION STONE APPLICATOR 05/05/2022 12:40 PM COMPOSITION STONE APPLICATOR Miscellaneous samples (specimen) ENTIRE VULVA / Unknown 05/04/2022 12:09 PM COMPOSITION STONE APPLICATOR 05/05/2022 12:40 PM COMPOSITION STONE APPLICATOR Alpa Negro MD LAB - PATHOLOGY/CY TOLOGY ORDERABLES [facility] [address] [facility] [place] [address], [facility] [phone] * CULTURE YEAST WITH DIRECT FLUORESCENT ARIN (05/04/2022 11:19 AM COMPOSITION STONE APPLICATOR) Smear [facility] Comment: CULTURE, YEAST, W/DIRECT FLUORESCENT ARIN Micro Number: [id number] Test Status: Final Specimen Source: Genital Specimen Quality: Adequate Smear: No fungal elements seen. Result: No yeast isolated Test Performed at: [facility] [address] [place] [address] JEREMY BARLOW MD Microbiology SPECIMEN FROM GENITAL SYSTEM / Unknown 05/04/2022 11:19 AM COMPOSITION STONE APPLICATOR 05/05/2022 12:56 AM COMPOSITION STONE APPLICATOR Alpa Negro MD LAB - MICROBIOLOGY ORDERABLES [address] [address] Care Teams Brisket Puller Relationship Specialty Start Date End Date Ragini Baumann PA-C [address] [place] [phone] PCP - General 06/16/22
--- OUTSIDE RECORDS SUMMARY | 2024-06-08 13:02 | XMS_ITS | Referral Summary ---
Author Organization [facility] Address [address] [place] [address] Care Team Providers Care Hammer Setter Name Role Phone Mei Starr MD Unavailable [phone] Jenelle Garcia NP Primary Care Provider [phone] Encounters Date Type Department Care Team Description 06/06/2024 8:59 AM HOME HEALTH CARE PHYSICIAN - 06/06/2024 11:59 PM HOME HEALTH CARE PHYSICIAN Hospital Encounter [facility] [address] [place] [address] Jose Garcia Md Esophageal dysphagia Discharge Disposition: Discharge to home or self care 05/28/2024 1:30 PM HOME HEALTH CARE PHYSICIAN Office Visit [facility] G[facility] at [facility] [address] [address] Leonila Hart MD Esophageal dysphagia (Primary Dx); Gastroesophageal reflux disease, unspecified whether esophagitis present; Functional diarrhea from Last 3 Months Allergies No known active allergies Medications lisinopril (PRINIVIL,ZESTR IL) 10 mg tablet Take 2 tablets (20 mg total) by mouth daily Active L gasseri/B bifidum/B longum (Slide ORAL) Take 1 tablet by mouth daily Active metoprolol tartrate (LOPRESSOR) 25 mg immediate release tablet Take 0.5 tablets (12.5 mg total) by mouth 2 (two) times a day 3 Active alendronate (FOSAMAX) 70 mg tablet Take 1 tablet (70 mg total) by mouth once a week Take on Sundays Active cholecalciferol , vitamin D3, (VITAMIN D3 ORAL) Take 3,000 Units by mouth daily Active diphenoxylate-a tropine (LOMOTIL) 2.5-0.025 mg per tablet TAKE 1 TABLET BY MOUTH 4 TIMES DAILY NEEDED FOR DIARRHEA 120 tablet [address] (PROTONIX) 40 mg EC tablet Take 1 tablet (40 mg total) by mouth daily 90 tablet [address] (PROTONIX) 40 mg EC tablet Take 1 tablet by mouth once daily 90 tablet 5 05/28/19 25 Discontinu ed(Reorder ) Active Problems Problem Noted Date Diagnosed Date Gastroesophageal reflux disease 05/28/2024 Esophageal dysphagia 05/28/2024 Functional diarrhea 08/10/2022 Abdominal pain 08/10/2022 Anal stenosis 06/15/2022 Overview (06/15/2022): Added automatically from request for surgery [id number] History of anal cancer 06/15/2022 Overview (06/15/2022): Added automatically from request for surgery [id number] Chronic migraine without aur a without status migrainosus, not intractable 07/17/2021 Numbness and tingling of right lower extremity 0 07/14/2020 Lumbar radiculopathy 06/18/2020 Social History Tobacco Use Types Packs/Day Years Used Date Smoking Tobacco: Never Passive Smoke Exposure: Past Smokeless Tobacco: Never Alcohol Use Standard Drinks/Week Comments Never 0 (1 standard drink = 0.6 oz pur e alcohol) AUDIT-C Answer Date Recorded Q1: How often do you have a drink containing alc ohol? Monthly or less 05/28/2024 Q2: How many drinks containi ng alcohol do you have on a typical day when you are drinking? 1 or 2 05/28/2024 Q3: How often do you have si x or more drinks on one occasion? Less than monthly 05/28/2024 PHQ-2 Answer Date Recorded PHQ-2 Total Score (If total score is 3 or more points, staff should administer the PHQ-9) 0 12/14/2022 Personal Safety Answer Date Recorded Have you ever been in or are you currently in a harmful physical or emotional relationship or is someone making you feel afraid or unsafe? Denies 08/23/2022 Comments No Sex and Gender Information Value Date Recorded Sex Assigned at Not on file Legal Sex Female 9:47 PM HOME HEALTH CARE PHYSICIAN Gender Identity Female 06/17/2020 8:08 AM CDT Sexual Orientation Straight 06/17/2020 8: 08 AM CDT Last Filed Vital Signs Vital Sign Reading Time Taken Comments Blood Pressure 148/88 05/28/2024 1:45 PM HOME HEALTH CARE PHYSICIAN Pulse 71 05/28/2024 1:45 PM HOME HEALTH CARE PHYSICIAN Temperature 36.1 C (97 F) 08/23/2022 10:40 AM CDT Respiratory Rate 15 08/23/2022 10:40 AM CDT Oxygen Saturation 99% 05/28/2024 1:45 PM HOME HEALTH CARE PHYSICIAN Inhaled Oxygen Concentration - - Weight 101.6 kg (224 lb) 05/28/2024 1:45 PM HOME HEALTH CARE PHYSICIAN Height 157.5 cm (5' 2 ) 05/28/2024 1:45 PM HOME HEALTH CARE PHYSICIAN Body Mass Index 40.97 05/28/2024 1:45 PM HOME HEALTH CARE PHYSICIAN Plan of Treatment Not on file Procedures Procedure Name Priority Date/Time Associated Diagnosis Comments FL ESOPHAGRAM, SINGLE CONTRAST Schedule Routine, Read Routine (OP Routine) 06/06/2024 9:21 AM HOME HEALTH CARE PHYSICIAN Esophageal dysphagia COLONOSCOPY 08/23/2022 9:32 AM CDT from Last 3 Months or Most Recently Relevant to Health Maintenance Results * FL Esophagram, Single Contrast (06/06/2024 9:21 AM HOME HEALTH CARE PHYSICIAN) Anatomical Region Laterality Modality Body N/A Computed Radiogr aphy 06/06/2024 10:3 5 AM HOME HEALTH CARE PHYSICIAN Impressions 06/06/2024 10:35 AM HOME HEALTH CARE PHYSICIAN 1. PRESBYESOPHAGUS, MILD CONTRAST RETENTION DUE TO DELAYED EMPTYING. 2. HIATAL HERNIA WITHOUT GASTROESOPHAGEAL REFLUX. FLUORO TIME: 0.6 minutes Electronically signed by: Denilson Anderson M.D. Narrative 06/06/2024 10:35 AM HOME HEALTH CARE PHYSICIAN EXAMINATION: FL ESOPHAGRAM BARIUM SWALLOW TO STOMACH, SINGLE CONTRAST HISTORY: Dysphagia ORDER DATE: 06/06/2024 9:30 AM COMPARISON: None TECHNIQUE: The patient was able to swallow thick barium for the esophagram. Cine-fluoroscopy with rapid sequence imaging was obtained while the patient swallowed. The patient was also placed supine and in various recumbent positions during the exam. FINDINGS: There was a normal mucosal fold pattern in the upper esophagus. There is no sign of diverticula, webs or stricture. There was a mild delay in contrast emptying from the esophagus into the stomach. Dysmotility as a result of tertiary contraction waves delayed esophageal emptying. There was a small sliding hiatal hernia. With provocative maneuvers no gastroesophageal reflux was initiated. The distal esophageal mucosal pattern is unremarkable. There was prompt gastric emptying. Procedure Note Denilson Anderson MD - 06/06/2024 EXAMINATION: FL ESOPHAGRAM BARIUM SWALLOW TO STOMACH, SINGLE CONTRAST HISTORY: Dysphagia ORDER DATE: 06/06/2024 9:30 AM COMPARISON: None TECHNIQUE: The patient was able to swallow thick barium for the esophagram. Cine-fluoroscopy with rapid sequence imaging was obtained while the patient swallowed. The patient was also placed supine and in various recumbent positions during the exam. FINDINGS: There was a normal mucosal fold pattern in the upper esophagus. There is no sign of diverticula, webs or stricture. There was a mild delay in contrast emptying from the esophagus into the stomach. Dysmotility as a result of tertiary contraction waves delayed esophageal emptying. There was a small sliding hiatal hernia. With provocative maneuvers no gastroesophageal reflux was initiated. The distal esophageal mucosal pattern is unremarkable. There was prompt gastric emptying. IMPRESSION: 1. PRESBYESOPHAGUS, MILD CONTRAST RETENTION DUE TO DELAYED EMPTYING. 2. HIATAL HERNIA WITHOUT GASTROESOPHAGEAL REFLUX. FLUORO TIME: 0.6 minutes Electronically signed by: Denilson Anderson M.D. us Leonila Hart MD IM FLUOROSCOPY PROCEDU RES Final Result * COLONOSCOPY (08/23/2022 9:32 AM CDT) Anatomical Region Laterality Modality Other Narrative Procedure Note Cecil Burrell MD - 08/23/2022 9:32 AM CDT [facility] Patient Name: Lexii Kim Procedure Date: 08/23/2022 9:32 AM Date of : 1960 Admit Type: Outpatient Age: 62 Gender: Female Note Status: Finalized Attending MD: Cecil Burrell M.D. Procedure Date: 08/23/2022 Procedure: Colonoscopy Indications: Chronic diarrhea Providers: Cecil Burrell M.D., Elizabeth Bolaños CRNA (Anesthesia Staff), Hansa Barry, ANH, Vera Baird, Air Dispatcher Referring MD: Mei Starr M.D. Medicines: Monitored Anesthesia Care Complications: No immediate complications. Estimated Blood Loss: Estimated blood loss: none. Procedure: Pre-Anesthesia Assessment: - Airway Examination: normal oropharyngeal airwayand neck mobility. - Respiratory Examination: clear to auscultation. - ASA Grade Assessment: III - A patient with severe systemic disease. - After reviewing the risks and benefits, thepatient was deemed in satisfactory condition to undergo the procedure. - The risks and benefits of the procedure and the sedation options and risks were discussed with the patient. All questions were answered and informed consent was obtained. After I obtained informed consent, the scope was passed under direct vision. Throughout theprocedure, the patient's blood pressure, pulse, and oxygen saturations were monitored continuously. The scopewas passed under direct vision. The Colonoscope was introduced through the anus and advanced to the the cecum, identified by the appendiceal orifice, ileocecal valve and palpation. The colonoscopy was performed with ease. The patient tolerated the procedure well. The quality of the bowelpreparation was good. The quality of the bowel preparation was evaluated using the BBPS ([place] Bowel Preparation Scale) with scores of: Right Colon = 3, Transverse Colon = 3 and Left Colon = 3 (entire mucosa seenwell with no residual staining, small fragments of stoolor opaque liquid). The total BBPS score equals 9. The bowel preparation used was bisacodyl tablets viasplit dose instruction. Bowel prep was administered usinga split dose. Findings: The colon (entire examined portion) appeared normal. Biopsies for histology were taken with a cold forceps from the entire colon for evaluation of microscopic colitis. Estimated blood loss: none. The perianal exam findings include a perianal rash. Impression: - The entire examined colon is normal. Biopsied. Recommendation: - Discharge patient to home (ambulatory). - Await pathology results. - Repeat colonoscopy in 10 years for screening purposes. - Lomotil 1 tablet PO PRN after loose bowelmovement. Procedure Code(s): --- Professional --- 60880, Colonoscopy, flexible; with biopsy, singleor multiple Diagnosis Code(s): --- Professional --- K52.9, Noninfective gastroenteritis and colitis, unspecified CPT copyright 2020 [employer]. All rights reserved. The codes documented in this report are preliminary and upon solar installation helper reviewmay be revised to meet current compliance requirements. Electronically signed by Cecil Burrell MD Cecil Burrell M.D. 08/23/2022 10:09:27 AM Number of Addenda: 0 Note Initiated On: 08/23/2022 9:32 AM Cecil Burrell MD ENDOSCOPY PROCEDURES Final Resul t from Last 3 Months or Most Recently Relevant to Health Maintenance Insurance [facility] [employer] MEDICARE GOLD Care Teams Hammer Setter Relationship Specialty [place] [address] [place] [address] PCP - General Family Medicine 05/29/24 [place] [id number] [address] [address] Surgeon Colon and Rectal Surgery 07/02/22
--- OUTSIDE RECORDS SUMMARY | 2024-06-08 13:02 | XMS_ITS | Clinical Summary ---
Author Organization [facility] Address [address] [address] Phone Care Team Providers Care Military Technology Specialist Name Role Phone PastorRagini duenas A PAC Primary Care Provider [phone] Allergies No known active allergies Medications lisinopril-hydro CHLOROthiazide (PRINZIDE, ZESTORETIC) 20-25 MG Tablet Take 1 Tab by mouth daily. Active Cyanocobalamin (VITAMIN B 12 PO) Take 1,000 Units/day by mouth daily. Active Cholecalciferol (VITAMIN D3) 1000 UNIT Tablet Take by mouth daily. Active Acetaminophen (TYLENOL EX ST ARTHRITIS PAIN PO) Take by mouth daily. Active hyoscyamine (LEVSIN) 0.125 MG Tablet Take 1 Tab by mouth every 4 hours as needed for Cramping. 120 Tab 3 9 Active hydrocortisone (ANUSOL-HC) 2.5 % Cream Apply daily. Apply to rectum as directed. 1 Tube 9 Active nitrofurantoin, macrocrystal-mon ohydrate, (MACROBID) 100 MG Capsule Take 100 mg by mouth 2 times daily. Active hydrocortisone (ANUSOL-HC) 25 MG Suppository 25 mg by Rectal route every 12 hours. 20 Suppository 9 Active mesalamine (ROWASA) 4 GM Enema 60 mL by Rectal route nightly. 1 Bottle 3 9 Active Active Problems No known active problems Family History Medical History Relation Name Comments Autism Brother Heart Disease Father Hypertension Father Hypertension Mother Colon Cancer Other uncle Other-comment Sister IBS Relation Name Status Comments Brother Alive Father Mother Other uncle Sister Alive Social History Tobacco Use Types Packs/Day Years Used Date Smoking Tobacco: Never Smokeless Tobacco: Never Alcohol Use Standard Drinks/Week Comments Yes 0 (1 standard drink = 0.6 oz pur e alcohol) OCCASIONALLY Comments No Sex and Gender Information Value Date Recorded Sex Assigned at Not on file Legal Sex Female 1:58 PM RN TRAVEL Gender Identity Not on file Sexual Orientation Not on file 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 Not on file Not on file Last Filed Vital Signs Vital Sign Reading Time Taken Comments Blood Pressure 107/68 03/15/2019 5:30 PM RN TRAVEL Pulse 66 03/15/2019 5:30 PM RN TRAVEL Temperature 36.4 C (97.6 F) 03/15/2019 3:26 PM RN TRAVEL Respiratory Rate 20 03/15/2019 3:26 PM RN TRAVEL Oxygen Saturation 99% 03/15/2019 5:30 PM RN TRAVEL Inhaled Oxygen Concentration - - Weight 88.5 kg (195 lb) 03/15/2019 3:26 PM RN TRAVEL Height 160 cm (5' 3 ) 03/15/2019 3:26 PM RN TRAVEL Body Mass Index 34.54 03/15/2019 3:26 PM RN TRAVEL Plan of Treatment Health Maintenance Due Date Last Done Comments DEXA Bone Density 1959 Hepatitis C Virus (HCV) Screening 1959 TdaP Immunization 1959 Pap Smear 1980 Cervical Cancer Screening (CCS) 1989 HPV/Cotest 1989 Cologuard 2009 Immunochemical Fecal Occult Blood 2009 Pneumococcal Immunization (50+ years) (1 of 1 - PCV) 2009 Zoster Immunization (1 of 2) 2009 Mammogram 08/03/2022 08/03/2021, 04/11/2020, 03/12/2019 Influenza Immunization (#1) 2023 01/12/2022, 1 SARS-COV-2 Immunization ( season) 2023 02/05/2021, 06/28/2020, 06/05/2020 Colonoscopy 02/29/2024 02/28/2019, 12/03, 07/04/2012, Additional history exists Colorectal Cancer Screening 02/29/2024 Respiratory Syncytial Virus (RSV) Immunization (Adult) (1 - 1-dose 75+ series) 2034 02/28/2019, 12/03, 07/04/2012, Additional history exists Hepatitis B Immunization Aged Out No longer eligible based on patient's age to complete this topic Meningococcal Immunization (ACWY) Aged Out No longer eligible based on patient's age to complete this topic Rotavirus Immunization Aged Out No lo nger eligible based on patient's age to complete this topic Procedures Procedure Name Priority Date/Time Associated Diagnosis Comments LEWIS SCREENING BILATERAL DIGITAL W CAD W DARNELL Routine 08/03/2021 11:54 AM CDT Visit for screening mammogram [facility] COLONOSCOPY Routine 07/04/2012 from Last 3 Months or Most Recently Relevant to Health Maintenance Results * LEWIS SCREENING BILATERAL DIGITAL W CAD W DARNELL (08/03/2021 11:54 AM CDT) Anatomical Region Laterality Modality breast Bilateral Mammography 08/03/2021 11:3 4 AM CDT Narrative 08/03/2021 2:55 PM CDT - LEWIS SCREENING BILATERAL DIGITAL W CAD W DARNELL BILATERAL DIGITAL SCREENING MAMMOGRAM 3D/2D WITH CAD WITH MEDIOLATERAL OBLIQUE CRANIOCAUDAL: 08/03/2021 The study was acquired using digital technology and interpreted from soft copy. Current study was also evaluated with ICAD version 7.2. 2D digital mammographic views, as well as 3D digital tomosynthesis were performed in the CC and MLO projections. CLINICAL: Routine screening. Patient has no complaints. Personal history of anal and rectal cancer. No family history of breast cancer. COMPARISONS: Comparison is made to [facility]: [facility]2020[facility], and [facility]. BREAST TISSUE:There are scattered fibroglandular densities in both breasts. FINDINGS: No significant masses, calcifications, or other findings are seen in either breast. There has been no significant interval change. IMPRESSION: BI-RAD 1 NEGATIVE There is no mammographic evidence of malignancy. A 1 year screening mammogram is recommended. A letter will be sent to the patient with these results. The patient will be entered into a reminder system with a target due date of 1 year for her next screening exam. Electronically signed by: Norman flores/penrad:08/03/2021 13:12:50 Open Source Developer(s): Aundrea Rubio(Sofia)(M), [facility] letter sent: Normal Exam Reading location: [facility] BI-RADS: 1 Negative Procedure Note Norman Rice MD - 08/03/2021 - LEWIS SCREENING BILATERAL DIGITAL W CAD W DARNELL BILATERAL DIGITAL SCREENING MAMMOGRAM 3D/2D WITH CAD WITH MEDIOLATERAL OBLIQUE CRANIOCAUDAL: 08/03/2021 The study was acquired using digital technology and interpreted from soft copy. Current study was also evaluated with ICAD version 7.2. 2D digital mammographic views, as well as 3D digital tomosynthesis were performed in the CC and MLO projections. CLINICAL: Routine screening. Patient has no complaints. Personal history of anal and rectal cancer. No family history of breast cancer. COMPARISONS: Comparison is made to exams dated: 07/30/2020, 03/12/2019 [facility], and 05/28/2015 [facility]. BREAST TISSUE:There are scattered fibroglandular densities in both breasts. FINDINGS: No significant masses, calcifications, or other findings are seen in either breast. There has been no significant interval change. IMPRESSION: BI-RAD 1 NEGATIVE There is no mammographic evidence of malignancy. A 1 year screening mammogram is recommended. A letter will be sent to the patient with these results. The patient will be entered into a reminder system with a target due date of 1 year for her next screening exam. Electronically signed by: Norman flores/penrad:08/03/2021 13:12:50 Open Source Developer(s): Aundrea Rubio(Sofia)(M), [facility] letter sent: Normal Exam Reading location: [facility] BI-RADS: 1 Negative us Ragini BAUM IMG MAMMO ORDERABLES Final R esult * HM COLONOSCOPY (07/04/2012) us Historical Provider MD PROCEDURE/MINOR SURGICAL ORDERABLES Final Result from Last 3 Months or Most Recently Relevant to Health Maintenance Insurance MEDICAID [place] Care Teams Military Technology Specialist Relationship Specialty Start Date End Date Ragini Baumann PAC [address] [place] [address] PCP - General Physician Elementary Supervisor 05/14/19
--- OUTSIDE RECORDS SUMMARY | 2024-06-08 13:02 | XMS_ITS | Data Portability ---
Author Organization [facility] [place] Address [address] [place] [address] Care Team Providers Care Technician Inventory Specialist Name Role Phone ROCK NAAND Primary Care Provider [phone] Assessment Encounter Date Assessment Date Assessment LastModified by Organization Details LastModified Time 06/01/2021 06/01/[address] scan for AAA. cardiology on June 08. 11 kidney doctor. Not available 06/01/2021 14:40:28 08/09/2022 08/09/2022 cbc, renal function, vitamin D reviewed and normal from 06/2022 done nephrology. Not available 08/09/2022 11:45:51 Plan of Treatment Reminders Order Date Submit Date Provider Last Modified By Organization Details Last Modified Time Details Appointments None recorded. Lab HbA1c (hemoglobi n A1c), blood 2022 023 [facility], [address] [facility], [address], [place], [address], 3 09:14:56 TSH + free T4, serum 2022 023 [facility], [address] [facility] [address] [facility], [address], [place], [address], 3 09:14:55 lipid panel, serum 2022 023 [facility], [address] [facility] [address] [facility], [address], [place], [address], 3 18:27:48 urinalysis , dipstick 2022 023 [email or web address] In-Office Order, Internal Use Only DO Not Attach Compendium DO Not Attach Compendium, Do Not Delete/merge, [id number] 13:04:26 culture, urine 2022 023 [facility], [address] [place] [address], [address], [place], [address], 3 17:10:00 TSH + free T4, serum 2021 022 [facility], [address] [place] [address], [address], [place], [address], 2 20:08:33 vitamin B12 + folate, serum or blood 2021 022 [facility], [address] [place] [address], [address], [place], [address], 2 20:08:34 Referral gastroente rologist referral - hx of colon cancer s/p radiation 2000, IBS, diarrhea 2022 023 [place], [address] [facility], [place], [address], 3 09:36:44 audiologis t referral 2021 022 [facility], [facility] [facility] [address], [place], [address], 2 12:25:10 neurologis t referral 2021 022 MARISELA Segura MD, [address] [place] [address] Dr, [place] [address], [place], [address], 2 15:12:12 ophthalmol ogist referral - Epidermal cyst affecting right orbital area 2020 021 [facility], [address] [facility], [place], [address], 2 12:29:38 Procedures None recorded. Surgeries None recorded. Imaging DEXA 2022 023 [facility] ([facility]), [address], [place], [address], 3 15:35:48 Medication Orders None recorded. Patient TargetsNo targets recorded. Patient Instructions Encounter Date Encounter Id Patient Instructions Last Modified By Organization Details Last Modified Time 05/14/2020 [id number] Discussed excision to epidermal cyst. Will consider in the future if/when more symptomatic. Recommended the daily use of sunscreen (SPF 30+). May apply vaseline to cryosurgery sites once daily x 1 week. [email or web address] Not available 05/14/2020 11:02:56 12/10/2020 [id number] Recommend patien t to see an ophthalmic surgeon for cyst removal as cyst lesion has now progressed down to placement on the right upper orbital rim. Referral request submitted. Reassurance given for resolution of previously treated actinic keratoses. 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 Referral for Irritable bowel syndrome hx of colon cancer s/p radiation 2000, IBS, diarrhea Referring Physician: [facility], Encounter Date: 08/09/2022 Results Created Date Observation Date Name Description Value Unit Range Abnormal Flag Note LastModifiedBy Organization Detail LastModifiedTime 06/01/19 22 06/02/2021 TSH+F REE T4 TSH 0.022 uIU/m L 0.450- 4.500 below low normal Not Available [facility] ([facility]) [address] [place], [address], 06/02/2021 20:08:33 06/01/19 22 06/02/2021 TSH+F REE T4 T4,free(dire ct) 1.68 NG/dL 0.82-1 .77 Not Available [facility] ([facility]) [address] [place], [address], 06/02/2021 20:08:33 06/01/19 22 06/02/2021 COMP. METAB OLIC PANEL (14) glucose 96 mg/dL 65-99 Not Available [facility] ([facility]) [address] [place], [address], 06/02/2021 20:08:33 06/01/19 22 06/02/2021 COMP. METAB OLIC PANEL (14) BUN 17 mg/dL 8-27 Not Available [facility] ([facility]) [address] [place], [address], 06/02/2021 20:08:33 06/01/19 22 06/02/2021 COMP. METAB OLIC PANEL (14) creatinine 0.65 mg/dL 0.57-1 .00 Not Available [facility] ([facility]) [address] [place], [address], 06/02/2021 20:08:33 06/01/19 22 06/02/2021 COMP. METAB OLIC PANEL (14) eGFR 99 mL/mi n/1.7 3 >59 In accor dance with recom menda tijayant from the NKF-A SN Task force , [facility] has updat ed its eGFR calcu latio n to the 2020 CKD-E PI creat inine equat ion that estim ates kidne y funct ion witho ut a race varia ble. Not Available [facility] ([facility]) [address] [place], [address], 06/02/2021 20:08:33 06/01/19 22 06/02/2021 COMP. METAB OLIC PANEL (14) BUN/creatini ne ratio 26 12-28 Not Available [facility] ([facility]) [address] [facility], [place], [address], 06/02/2021 20:08:33 06/01/19 22 06/02/2021 COMP. METAB OLIC PANEL (14) sodium 141 mmol/ L 134-14 4 Not Available [facility] ([facility]) [address] [facility], [place], [address], 06/02/2021 20:08:33 06/01/19 22 06/02/2021 COMP. METAB OLIC PANEL (14) potassium 5.2 mmol/ L 3.5-5. 2 Not Available [facility] ([facility]) [address] [facility], [place], [address], 06/02/2021 20:08:33 06/01/19 22 06/02/2021 COMP. METAB OLIC PANEL (14) chloride 103 mmol/ L 96-106 Not Available [facility] ([facility]) [address] [facility], [place], [address], 06/02/2021 20:08:33 06/01/19 22 06/02/2021 COMP. METAB OLIC PANEL (14) carbon dioxide, total 24 mmol/ L 20-29 Not Available [facility] ([facility]) [address] [facility], [place], [address], 06/02/2021 20:08:33 06/01/19 22 06/02/2021 COMP. METAB OLIC PANEL (14) calcium 9.7 mg/dL 8.7-10 .3 Not Available [facility] ([facility]) [address] [facility] [place], [address], 06/02/2021 20:08:33 06/01/19 22 06/02/2021 COMP. METAB OLIC PANEL (14) protein, total 7.0 g/dL 6.0-8. 5 Not Available [facility] ([facility]) [address] [place], [address], 06/02/2021 20:08:33 06/01/19 22 06/02/2021 COMP. METAB OLIC PANEL (14) albumin 4.0 g/dL 3.8-4. 8 Not Available [facility] ([facility]) [address] [facility], [place], [address], 06/02/2021 20:08:33 06/01/19 22 06/02/2021 COMP. METAB OLIC PANEL (14) globulin, total 3.0 g/dL 1.5-4. 5 Not Available [facility] ([facility]) [address] [place], [address], 06/02/2021 20:08:33 06/01/19 22 06/02/2021 COMP. METAB OLIC PANEL (14) A/G ratio 1.3 1.2-2. 2 Not Available [facility] ([facility]) [address] [place], [address], 06/02/2021 20:08:33 06/01/19 22 06/02/2021 COMP. METAB OLIC PANEL (14) bilirubin, total 0.5 mg/dL 0.0-1. 2 Not Available [facility] ([facility]) [address] [place], [address], 06/02/2021 20:08:33 06/01/19 22 06/02/2021 COMP. METAB OLIC PANEL (14) alkaline phosphatase 89 IU/L 44-121 Not Available [facility]) [address] [facility], [place], [address], 06/02/2021 20:08:33 06/01/19 22 06/02/2021 COMP. METAB OLIC PANEL (14) AST (SGOT) 14 IU/L 0-40 Not Available [facility] ([facility]) [address] [facility] [place], [address], 06/02/2021 20:08:33 06/01/19 22 06/02/2021 COMP. METAB OLIC PANEL (14) ALT (SGPT) 9 IU/L 0-32 Not Available [facility] ([facility]) [address] [facility] [place], [address], 06/02/2021 20:08:33 06/01/19 22 06/02/2021 LIPID PANEL cholesterol, total 197 mg/dL 100-19 9 Not Available [facility] ([facility]) [address] [facility] [place], [address], 06/02/2021 20:08:34 06/01/19 22 06/02/2021 LIPID PANEL triglyceride s 106 mg/dL 0-149 Not Available [facility] ([facility]) [address] [place], [address], 06/02/2021 20:08:34 06/01/19 22 06/02/2021 LIPID PANEL HDL cholesterol 62 mg/dL >39 Not Available [facility]) [address] [facility] [place], [address], 06/02/2021 20:08:34 06/01/19 22 06/02/2021 LIPID PANEL VLDL cholesterol shweta 19 mg/dL 5-40 Not Available [facility] ([facility]) [address] [facility] [place], [address], 06/02/2021 20:08:34 06/01/19 22 06/02/2021 LIPID PANEL LDL chol calc ([facility]) 116 mg/dL 0-99 above high normal Not Available [facility] ([facility]) [address] [facility] [place], [address], 06/02/2021 20:08:34 06/01/19 22 06/02/2021 LIPID PANEL 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 Not Available [facility] ([facility]) [address] [facility], [place], [address], 06/02/2021 20:08:34 06/01/19 22 06/02/2021 HEMOG LOBIN A1C hemoglobin A1C TNP % Test not perfo rmed. No laven jose top tube submi tted. Predi abete s: 5.7 - 6.4 Diabe john: >6.4 Glyce rodolfo contr ol for adult s with diabe john: <7.0 Not Available [facility] ([facility]) [address] [facility], [place], [address], 06/02/2021 20:08:35 06/01/19 22 06/02/2021 VITAM IN D, 25-HY DROXY vitamin D, 25-hydroxy 23.3 NG/mL 30.0-1 00.0 below low normal Vitam in D defic iency has been defin ed by the Insti tute of Medic ine and an Endoc denis Socie ty pract ice guide line as a level of serum 25-OH vitam in D less than 20 ng/mL (1,2) . The Endoc jean-paule Socie ty went on to furth er defin e vitam in D insuf ficie ncy as a level betwe en 21 and 29 ng/mL (2). 1. IOM (Inst itute of Medic ine). 2010. Dieta ry refer ence edd es for calci um and DNathalie marsh [place]: The [facility] Press . 2. Jonathon k [place], Binkl ey [place], Bisch off-F errar i [place], et al. Evalu ation , treat ment, and preve ntion of vitam in D defic iency : an Endoc rine Socie ty clini shweta pract ice guide line. JCEM. 2010; 96(7) :1911 -30. Not Available [facility] ([facility]) [address] [place], [address], 06/02/2021 20:08:35 06/01/19 22 06/02/[address] PROBL EM request problem TNP Test not perfo rmed. No laven jose top tube submi tted. TEST: 00710 3 Hemog lobin A1c Not Available [facility] ([facility]) [address] [place], [address], 06/02/2021 20:08:36 06/25/19 23 06/29/2022 URINE CULTU RE, ROUTI NE urine culture, routine Final report abnormal Not Available [facility] ([facility]) [address] [place], [address], 06/29/2022 17:10:00 06/25/19 23 06/29/2022 URINE CULTU RE, ROUTI NE result 1 Commen t abnormal Esche rajni a coli, ident ified by an autom ated bioch emica l syste m. Cefaz vasquez <=4 ug/mL Cefaz vasquez with an RODOLFO <=16 predi cts susce ptibi lity to the oral agent s cefac maksim, cefdi ibis, cefpo doxim e, cefpr ozil, cefur oxime , cepha lexin , and lorac arbef when used for thera py of uncom plica antonio urina ry tract infec tions due to E. coli, Klebs iella pneum oniae , and Prote us mirab ilis. Great er than 100,0 00 colon y formi ng units per mL Not Available [facility] ([facility]) [address] [facility], [place], [address], 06/29/2022 17:10:00 06/25/19 23 06/29/2022 URINE CULTU RE, ROUTI NE antimicrobia l susceptibili ty Commen t S = Susce ptibl e; I = Inter media te; R = Resis tant P = Posit krzysztof; N = Negat krzysztof MICS are expre ssed in micro grams per mL Antib iotic RSLT# 1 RSLT# 2 RSLT# 3 RSLT# 4 Amoxi cilli n/Cla vulan ic Acid S Ampic illin S Cefep krishna S Ceftr iaxon e S Cefur oxime S Cipro floxa khadijah S Ertap enem S Genta micin S Imipe nem S Levof loxac in S Merop enem S Nitro furan toin S Piper acill in/Ta zobac emerson S Tetra cycli ne S Tobra mycin S Trime thopr im/March lfa S Not Available [facility] ([facility]) [address] [facility], [place], [address], 06/29/2022 17:10:00 06/26/19 23 06/25/2022 urina lysis , dipst ick Leukocytes Large Not Available In-Offi ce Order Internal Use Only DO Not Attach Compendium DO Not Attach Compendium, Do Not Delete/merge, [id number] 06/24/2022 11:31:21 06/26/19 23 06/25/2022 urina lysis , dipst ick Nitrite positi ve Not Available In-Office Order Internal Use Only DO Not Attach Compendium DO Not Attach Compendium, Do Not Delete/merge, 06/24/2022 11:31:21 06/26/19 23 06/25/2022 urina lysis , dipst ick Urobilinogen .2 Not Available In-Of fice Order Internal Use Only DO Not Attach Compendium DO Not Attach Compendium, Do Not Delete/merge, 06/24/2022 11:31:21 06/26/1906/25/2022 urina lysis , dipst ick Protein 30 Not Available In-Office Order Internal Use Only DO Not Attach Compendium DO Not Attach Compendium, Do Not Delete/merge, 06/24/2022 11:31:21 06/26/1906/25/2022 urina lysis , dipst ick pH 7.0 Not Available In-Office Order Internal Use Only DO Not Attach Compendium DO Not Attach Compendium, Do Not Delete/merge, 06/24/2022 11:31:21 06/26/1906/25/2022 urina lysis , dipst ick Blood Large Not Available In-Office Order Internal Use Only DO Not Attach Compendium DO Not Attach Compendium, Do Not Delete/merge, 06/24/2022 11:31:21 06/26/1906/25/2022 urina lysis , dipst ick Specific [place] 1.025 Not Available In-Off ice Order Internal Use Only DO Not Attach Compendium DO Not Attach Compendium, Do Not Delete/merge, 06/24/2022 11:31:21 06/26/1906/25/2022 urina lysis , dipst ick Ketone Negati ve Not Available In-Office Order Internal Use Only DO Not Attach Compendium DO Not Attach Compendium, Do Not Delete/merge, 06/24/2022 11:31:21 06/26/1906/25/2022 urina lysis , dipst ick Bilirubin Negati ve Not Available In-Office Order Internal Use Only DO Not Attach Compendium DO Not Attach Compendium, Do Not Delete/merge, 06/24/2022 11:31:21 06/26/1906/25/2022 urina lysis , dipst ick Glucose Negati ve Not Available In-Office Order Internal Use Only DO Not Attach Compendium DO Not Attach Compendium, Do Not Delete/merge, 06/24/2022 11:31:21 06/26/19 23 06/25/2022 urina lysis , dipst ick Appearance Clear Not Available In-Offi ce Order Internal Use Only DO Not Attach Compendium DO Not Attach Compendium, Do Not Delete/merge, [id number] 06/24/2022 11:31:21 06/26/19 23 06/25/2022 urina lysis , dipst ick Color Yellow Not Available In-Office Order Internal Use Only DO Not Attach Compendium DO Not Attach Compendium, Do Not Delete/merge, [id number] 06/24/2022 11:31:21 08/10/1908/10/2022 TSH+F REE T4 TSH 0.089 uIU/m L 0.450- 4.500 below low normal Not Available [facility] ([facility]) [address] [place], [address], 08/10/2022 09:14:55 08/10/1908/10/2022 TSH+F REE T4 T4,free(dire ct) 1.58 NG/dL 0.82-1 .77 Not Available [facility] ([facility]) [address] [place], [address], 08/10/2022 09:14:55 08/10/1908/10/2022 HEMOG LOBIN A1C hemoglobin A1C 5.6 % 4.8-5. 6 Predi abete s: 5.7 - 6.4 Diabe john: >6.4 Glyce rodolfo contr ol for adult s with diabe john: <7.0 Not Available [facility] ([facility]) [address] [facility], [place], [address], 08/10/2022 09:14:55 05/13/1905/13/2020 CT, abdom en + pelvi s, w/ contr ast No observ ation record ed. [facility]) [address] [facility], [place], [address], 05/13/2020 17:21:33 05/13/19 21 05/13/2020 CT, chest , w/ contr ast No observ ation record ed. [facility] [address] [facility], [place], [address], 05/13/2020 17:21:51 06/26/19 22 06/25/2021 CT, angio gram, chest , w/ contr ast No observ ation record ed. [address] [place] [address], [address], 06/26/2021 14:36:35 07/16/19 22 07/15/2021 audio gram No observ ation record ed. [address] [facility] [address] [facility], [place], [address], 07/15/2021 14:39:29 08/04/19 22 08/03/2021 MAMMO , scree chica, bilat eral No observ ation record ed. [facility] [address] [place], [address], 08/13/2021 17:38:54 10/23/19 23 10/21/2022 DEXA No observ ation record ed. [address], [address], 10/28/2022 17:28:46 10/29/19 23 10/21/2022 DEXA No observ ation record ed. [facility] ([facility]) [address] [place] [address] [address], [address], 10/28/2022 11:50:16 Result Notes None recorded. Problems Name Problem SNOMED Code Status Onset Date Resolution Date Notes Provider Name and Address Organization Details Recorded Time Faustino montoyaen olive 46819013 Active 2019 YADIRA MOSCOSO Attn: Stacia duffy,[address] [facility], [place], [address], [facility] 0 12:33:32 Divertic ulosis of colon 124741571 Active 2019 YADIRA MOSCOSO Attn: Accountin g,[address] [facility], [place], [address], [place] [facility] 0 12:47:22 History of rectal bleeding [id number] 632480 Completed 201904/26/2019 YADIRA MOSCOSO Attn: Accountsalomon g,[address] [facility], [place], [address], [place] [facility] 0 12:47:58 Hematoch ezia 772572955 Active 2019 YADIRA MOSCOSO Attn: Accountin g,[address] [facility], [place], [address], [place] [facility] 0 12:48:10 Hydronep hrosis 56367913 Active 2019 PRINCE 04/02/19 YADIRA MOSCOSO Attn: Accountsalomon g,[address] [facility], [place], [address], [place] [facility] 0 13:02:54 Lesion of liver 351410216 Active 2019 YADIRA MOSCOSO Attn: Accountsalomon g,[address] [facility], [place], [address], [place] [facility] 0 12:50:[address] 62192858 Active 2019 YADIRA MOSCOSO Attn: Accountsalomon g,[address] [facility], [place], [address], [place] [facility] 0 13:03:00 Atrophy of left kidney 820563298 Active 2019 YADIRA MOSCOSO Attn: Accountin g,[address] [facility], [place], [address], [place] [facility] 0 13:03:47 Neuropat hy 732967868 Active 2022 Karen Freedman [place] null, [place] [facility] 3 10:56:33 Aneurysm of thoracic aorta 917705696 Active 2022 YADIRA MOSCOSO Attn: Accountin g,[address] [facility] [place], [address], [place] [facility] 3 10:59:15 History of malignan t neoplasm of colon 868258172 Active 2022 YADIRA MOSCOSO Attn: Accountsalomon g,[address] [facility], [place], [address], [place] [facility] 3 11:00:23 Adult lichen sclerosu s 830195975 Active 2022 Dr Funk at [facility]. uses clobetas on YADIRA MOSCOSO Attn: Accountin g,[address] [facility], [place], [address], [place] [facility] 3 11:14:06 Albuminu augusta 099080523 Active 2022 YADIRA MOSCOSO Attn: Accountin g,[address] [facility], [place], [address], [place] [facility] 3 11:41:09 Irritabl e bowel syndrome 81675752 Active 2022 YADIRA MOSCOSO Attn: Accountin g,[address] [facility], [place], [address], [place] [facility] 3 11:41:10 Morbid obesity 759868587 Active 2022 YADIRA MOSCOSO Attn: Accountin g,[address] [facility], [place], [address], [place] [facility] 3 11:43:58 Osteopen ia 701198836 Active 2022 YADIRA MOSCOSO Attn: Accountin g,[address] [facility], [place], [address], [place] [facility] 3 11:45:36 Genital lichen sclerosu s 326304614 Active 2022 YADIRA MOSCOSO Attn: Accountin g,[address] [facility], [place], [address], [place] [facility] 3 11:46:18 Notes:lyjken scerosis. Some problems listed in Documents: #[id number], #[id number] could not be added to this patient's chart. Please review these documents and add these problems to the patient's chart manually as needed. Problem Notes None recorded. Procedures Surgical History Date Name Laterality Status Provider Name and Address Organization Details Recorded Time 1 Date of Last Mammogram completed Karen Freedman MA [facility] 06/01/2021 14:05:06 1 Date of Last Pap Smear completed Karen Freedman MA [facility] 06/01/2021 14:05:09 1 Cryosurgery Warts/Skin Tags completed Valentine Rodriguez [facility] 05/14/2020 11:02:22 0 excision completed Raquel Valentin MA [facility] 08/24/2019 12:33:02 Imaging Results Imaging Date Name Status LastModified by Organiz ation Details LastModified Time 05/13/2020 CT, abdomen + pelvis, w/ contrast completed [facility]) [address] [place], [address], 05/13/2020 17:21:33 05/13/2020 CT, chest, w/ contrast completed [facility]) [address] [place], [address], 05/13/2020 17:21:51 06/25/2021 CT, angiogram, chest, w/ contrast completed [place] [address] [facility] [address] [place] [address], [address], 06/26/2021 14:36:35 07/15/2021 audiogram completed [address] [facility] [address] [place], [address], 07/15/2021 14:39:29 08/03/2021 MAMMO, screening, bilateral completed [facility] [address] [place], [address], 08/13/2021 17:38:54 10/21/2022 DEXA completed [facility] [address] [facility] [address], [place], [address], 10/28/2022 17:28:46 10/21/2022 DEXA completed JUSTINO [email or web address] [address] [facility] [address], [place], [address], 10/28/2022 11:50:16 Procedure Notes None recorded. Medical Equipment None Reported. Allergies No known drug allergies Medications Name Sig Start Date Stop Date Status Note LastModified by Organization Details LastModified Time nystatin 100,000 unit/gram topical ointment MIX WITH CLOBETASO L OINTMENT AND APPLY TO EXTERNAL VULVAR TISSUES TWICE DAILY active Not Available Not Available No t Available fluconazole 150 mg tablet Take 1 tablet by oral route. 08/09 completed Not Available Not Available Not Available sumatriptan 100 mg tablet TAKE 1 TABLET BY MOUTH EVERY 2 HOURS SOON FEEL HEADACHE IS COMING. NO MORE THAN 2 TABLETS IN 24 HOURS 08/09 completed Not Available Not Available Not Available hydrocodone 5 mg-acetamin ophen 325 mg tablet TAKE 1 TABLET BY MOUTH EVERY 8 HOURS NEEDED FOR PAIN 08/09 completed Not Available Not Available Not Available Nystop 100,000 unit/gram topical powder APPLY TOPICALLY TWICE DAILY 08/09 completed Not Available Not Available Not Available fluconazole 200 mg tablet TAKE 1 TABLET BY MOUTH EVERY OTHER DAY FOR 3 DOSES 08/09 completed Not Available Not Available Not Available alendronate 70 mg tablet TAKE 1 TABLET BY MOUTH EVERY WEEK active Not Available Not Available No t Available clobetasol 0.05 % topical cream APPLY TO THE AFFECTED AREA TWICE DAILY NEEDED 08/09 completed Not Available Not Available Not Available diphenoxyla te-atropine 2.5 mg-0.025 mg tablet TAKE 1 TABLET BY MOUTH FOUR TIMES DAILY NEEDED FOR DIARRHEA active Not Available Not Available No t Available acetaminoph en 650 mg tablet Take 1 tablet every 12 hours by oral route. 08/09 completed Not Available Not Available Not Available tramadol 50 mg tablet TK 1 T PO Q 6 H PRN P FOR 10 DAYS 08/09 completed Not Available Not Available Not Available prednisone 10 mg tablets in a dose pack FOLLOW PACKAGE DIRECTION S active Not Available Not Available No t Available sodium citrate-cit abby acid 500 mg-334 mg/5 mL oral solution 08/09 completed Not Available Not Available Not Available pantoprazol e 40 mg tablet,consuelo yed release active Not Available Not Available Not Available erythromyci n 5 mg/gram (0.5 %) eye ointment APPLY TO RIGHT EYE TWICE DAILY DIRECTED 08/09 completed Not Available Not Available Not Available hydrocortis one 0.25 % topical cream 1 topically daily as needed active Not Available Not Available No t Available lisinopril 10 mg tablet TAKE 1 TABLET BY MOUTH DAILY active Not Available Not Available No t Available gabapentin 300 mg capsule TK 1 C PO BID 08/09 completed Not Available Not Available Not Available lisinopril 20 mg-hydrochl orothiazide 25 mg tablet 04/26 completed Not Available Not Available Not Available hyoscyamine 0.125 mg/5 mL oral elixir Take 0.1 mL every 4 hours by oral route. 08/09 completed Not Available Not Available Not Available metoprolol succinate ER 25 mg tablet,exte nded release 24 hr TAKE 1/2 TABLET BY MOUTH TWICE DAILY 08/09 completed Not Available Not Available Not Available clobetasol 0.05 % topical ointment APPLY TO VULVAR TISSUES TWICE DAILY active Not Available Not Available No t Available Anusol-HC 25 mg rectal suppository Insert 1 supposito ry every day by rectal route as needed for 14 days. active Not Available Not Available No t Available methylpredn isolone 4 mg tablets in a dose pack FOLLOW PACKAGE DIRECTION S 06/01 completed Not Available Not Available Not Available losartan 100 mg tablet TAKE 1 TABLET BY MOUTH DAILY active Not Available Not Available No t Available metoprolol tartrate 25 mg tablet TAKE 1/2 TABLET BY MOUTH TWICE DAILY active Not Available Not Available No t Available topiramate 50 mg tablet 08/09 completed Not Available Not Available Not Available nitrofurant oin monohydrate /macrocryst als 100 mg capsule TAKE 1 CAPSULE BY MOUTH EVERY 12 HOURS FOR 5 DAYS 08/09 completed Not Available Not Available Not Available metoprolol tartrate take 12.5 mg BID one in am and one in pm active Not Available Not Available No t Available mecobalamin (vitamin B12) 1,000 mcg disintegrat ing tablet,subl ingual Place 1 tablet every day by sublingua l route. 08/09 completed Not Available Not Available Not Available Vitals Date Recorded Body height Body mass index (BMI) Body weight Heart rate Oxygen saturation Oxygen saturation in Arterial blood by Pulse oximetry Body temperature Systolic blood pressure Diastolic blood pressure Provider Name and Address Organization Details Last Updated DateTime 2 160.02 cm 40.8 kg/m2 325468. 35 g 62 /min 99 % 99 % 98 [degF] 122 mm[Hg] 86 mm[Hg] Karen Freedman MA [facility] 2 14:09:51 Date Recorded Body height Body mass index (BMI) Body weight Heart rate Oxygen saturation Oxygen saturation in Arterial blood by Pulse oximetry Systolic blood pressure Diastolic blood pressure Provider Name and Address Organization Details Last Updated DateTime 3 160.02 cm 40 kg/m2 050959. 88 g 53 /min 99 % 99 % 148 mm[Hg] 100 mm[Hg] Karen Freedman MA [facility] 3 10:59:00 Social History Question Answer Notes LastModified by Organizat ion Details LastModified Time Tobacco Smoking Status Never Smoker Annabelle Love MA [facility], [facility] 04/26/2019 11:48:24 What Is Your Level Of Alcohol Consumption? Occasional Headaches Lately. Information not available 06/01/2021 What Was The Date Of Your Most Recent Tobacco Screening? 08/09/2022 Information not available 08/09/2022 Do You Or Have You Ever Used Smokeless Tobacco? Never Used Smokeless Tobacco Information not available 07/26/2019 How Much Tobacco Do You Smoke? No Information not available 07/26/2019 On What Date Was Tobacco Cessation Counseling Provided? 08/09/2022 Information not available 08/09/2022 Sex: Unknown Functional Status None recorded. Mental Status None recorded. Family History Relationship Description Onset Age of this Age Resolved Age Notes LastModified by Organization Details LastModified Time Father Hypertensive disorder bbertoglioma Not available 11:48:48 Father Heart disease bbertoglioma Not available 11:48:57 Mother Hypertensive disorder bbertoglioma Not available 11:48:48 Medical History Condition Response Coronary Artery Disease N Other N High Blood Pressure Y Atrial Fibrillation N Kidney or Bladder Problems Y Thyroid Problems N GI Problems Depression N COPD N Blood Clots N Skin Problems N Anemia Y Heart Attack (DE) N Anxiety Disorder N Diabetes N Muscle, Joint, or Bone Problems N Seizures/Epilepsy N Acid Reflux (GERD) N Cancer Y Stroke N Asthma N Allergies N High Cholesterol N Hepatitis N Liver Disease N Headaches N Heart Failure N Osteoporosis Y Gynecological History Statement/Question Response Date of Last Pap Smear 07/03/2020 Date of Last Mammogram 07/03/2020 Obstetrics History GPAL:G 3 P 3 0 0 3 Type Value Multiple Births 0 Full Term 3 Induced 0 Spontaneous 0 Premature 0 Living 3 Ectopics 0 Total 3 Past Encounters Encounter ID Performer Location Encounter Start Date Encounter Closed Date Diagnosis/Indication Diagnosis SNOMED-CT Code Diagnosis ICD10 Code Diagnosis Note [id number] YADIRA MOSCOSO [facility] [address] [place] [address] 04/26/2019 11:29:49 04/27/2019 12:23:17 Adult health examination 663674737 Z00.01 Patient presents for health examinatio and establish as new patient. Essential hypertension 30290408 I10 Patient BP 124/84, WNL. Sees cardiologi Dr daniel Heng, at [place]. drug regiment: lisinopril 10 mg Advised to check BP regularly with a goal of <140/90, if BP consistent ly >140/90, advised to contact clinic Discussed DASH diet Advised 30 minutes of exercise minimum daily Advised tobacco, alcohol, caffeine all increase BP Advised goal for BP is <140/90 Obese 072121818 E66.9 Patient has lost 60 lbs since 2017. She drink 3 glasses of water per day. She has soda occasional ly. She eat her veggies and is watching her carbs. exercises 2x per week. - TSH- continue diet- cut out sugary drinks Hematochezia 841582842 K 92.1 Patient has been having rectal bleeding. She is f/u with rectal specialist next month at [facility], Dr bundy appointmen t may 08. Colonoscop y normal. 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 MRI 04/02/19 shows left kidney atrophy, hydronephr osis and hydrourete r. Nephrologlakeisha daniel states she may need to have a stent placed. Lesion of liver 01637776 [address] scan in June to f/u on nodule of liver. Per MRI on 04/02/19 it is likely a hemangioma . [id number] YADIRA MOSCOSO [facility] [address] [place] [address] 05/24/2019 11:02:32 05/25/2019 09:08:18 Lesion of nose 264163164 J34.89 patient has lesion on tip of nose on left side. area is darker patch with some telangiect asias. area has uneven borders. She also has mole on right side of chest that she says is changing. - advised patient to see dermatolog y for skin check and she has many moles [id number] YADIRA MOSCOSO [facility] [address] [place] [address] 07/26/2019 15:50:08 07/30/2019 09:57:41 Candidiasis of vagina 57705377 B37.3 Patient seen by urologist today and diagnosed with vaginal candidiasi s. He would not provide treatment and had her f/u here. - diflucan 150 mg once- f/u if no improvemen t- avoid pads or change often, keep area dry, wear lose clothing [id number] YADIRA MOSCOSO [facility] [address] [place] [address] 10/03/2019 10:36:16 10/04/2019 14:28:43 Deep venous thrombosis of lower extremity 984207161 I82.409 patient presents with two days of right ankle swelling and pain when walking. She states her veins are bad and she sees a lump in one of the veins. She denies erythema, drainage, temperatur e change, fever, CP, sob. - US ankle- compressio n socks- excercise [id number] YADIRA MOSCOSO [facility] [address] [place] [address] 04/24/2020 08:06:18 04/25/2020 16:49:11 Neuropathy 145900773 G62.9 right leg numbness, swelling, pain from hip to leg or knee down to leg. foot is numb. when standing still feels like water is running down leg. no instabilit y or foot drop. Not falling or tripping. - following with cardiology - following already with vein specialist - sending referral for neurology due to neuropathy [id number] [facility] [address] [place] [address] 05/14/2020 10:39:11 05/15/2020 10:57:21 Actinic keratosis 908032287 L57.0 Epidermoid cyst 55483331 6 L72.0 Asymptomat ic [id number] [facility] [address] [place] [address] 12/10/2020 10:55:19 12/11/2020 09:05:58 Epidermoid cyst 671141943 L72.0 Affecting the right orbit Scar 486478528 L90.5 Resolved Actinic Keratoses [id number] YADIRA MOSCOSO [facility] [address] [place] [address] 06/01/2021 13:56:39 06/02/2021 09:42:48 Morning headache 678193783 R51.9 right side but if flat less pain. has improved due to improved . Morbid obesity 838169251 E66.01 BMI 40.8 Fatigue 01718343 R53.83 6 months having fatigue . [place] after waking up daily. will see neuro for [place]. Hearing lo ss of right ear 273405015 H91.91 unable to hear well out of right ear. [id number] Karen Freedman MA [facility] [address] [place] [address] 06/24/2022 11:22:47 06/24/2022 11:45:58 Acute urinary tract infection 392192112 N39.0 [id number] YADIRA MOSCOSO [facility] [address] [place] [address] 08/09/2022 10:47:49 08/09/2022 11:30:43 Osteopenia 197444302 M85.80 will stop alendronat e, takig it for 3 years Essential hypertension 13758574 I10 not controlled today, sates she is nervouswil l check at home and may need to increase lisinopril denies cp, sob, palpitatio ns drug regiment: lisinopril 10 mg, metoprolol 25 mg (1/2 tab bid) Cholesterol screening 27 8263189 Z13.220 Morbid obesity 814103532 E66.01 BMI 40.8 Irritable bowel syndrome 82567512 K58.9 referred to GI. would like me to send referral to make sure they have it. Albuminuria 097028300 R8 0.9 478 07/2022 Genital li khanna sclerosus 244459309 L90.0 following obgynusing clobetasol bid Health Concerns Section Related Observation LastModified by Organization Detai ls LastModified Time None Recorded Concern Status LastModified by Organization Details LastModified Time None Recorded Advance Directives Directive None Recorded Payers Encounter Date Sequence Insurance Name Policy Number Policy Keith Covered Member ID Keith Member ID Guarantor Name 05/14/2020 1 [facility] (MEDICAID HMO) [id number] Lexii Kim [id number] Lexii Kim 12/10/2020 1 [facility] [place] ([place]ID H[place]) [id number] Lexii Kim [id number] Lexii Kim 06/01/2021 1 [facility] (MEDICAID HMO) [id number] Lexii Kim [id number] Lexii Kim 06/24/2022 1 [facility] (MEDICAID HMO) [id number] Lexii Kim [id number] Lexii Kim 08/09/2022 1 [facility] [place] ([place] [id number] Lexii Kim [id number] Lexii Kim Notes Date Note Type Note Provider Name and Address Organization Details Recorded Time 06/01/2021 text/html I have been experiencing headaches in the morning when I wake up. It has been happening on a daily basis for the past couple of weeks. I had Covid early April and did not have these type of headaches. I am not drinking alcohol. Tylenol does not help. They usually go away after taking an NSAID, which I am not supposed to take. I do have caffeine throughout the day so I don t think it is related to that. I have experienced them once a week in the past couple of months but now seems to be all of the time. It is like a dull ache on top of my forehead light affects the eyes in the morning. no nausea or dizziness. no disorientation. pain level 7/10. tylenol does not help. hot shower helps. no hx of headches. waking patient up. YADIRA MOSCOSO Attn: Accounting[address] [place], [address], [facility] 06/12/2021 16:44:59 08/09/2022 text/html Lexii is a 62 YO F pmhxz colon cancer s/p radiation (1999), thoracic aortic aneurysm, IBS, vaginal lichen sclerosis, hydronephrosis, hydroureter, albuminuria, hx of osteopenia presenting for f/uPatient is active. 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 states diarrhea has been worse. Stress has been higher and thinks causing BP to be in 140's. kidneys: follows with nephrology, Dr Gould. SAw them June 2022 and will return October. following renal aneurysm, kidney function, albuminuria. NEUROLOGIST: Saw neurologist for headaches. took GABAPENTIN AND TOPOMAX but did not like either medication. not following up. headaches have improved. Osteopenia: started 3 years ago for osteopenia. would like to stop. GI: Dr Adan wants him to see GI for IBS. She has appointment tomorrow. CEA slightly elevated to 5.9. they told her it was due to her IBS. Gen surgeon: Dr Starr working on removing stricture in anal canal. They dilated the stricture and will repeat in 12 weeks. cardiology: will see Dr Rueda in december. states she will call him for high BP. OBGYN: Following for vaginal lichen planus. using combination of clobetasol and yeast cream bid. YADIRA MOSCOSO Attn: Accounting[address] [place], [address], [facility] 08/09/2022 11:47:11 OBGyn Episode No OBEpisode recorded.
--- OUTSIDE RECORDS SUMMARY | 2024-06-08 13:02 | XMS_ITS | Clinical Summary ---
Author Organization [facility] [address] Address [address] [place] [address] Care Team Providers Care Spike Machine Feeder Name Role Phone Mei Starr MD Unavailable [phone] Jenelle Garcia NP Primary Care Provider [phone] Allergies No known active allergies Medications lisinopril (PRINIVIL,ZESTR [place]) 10 mg tablet Take 2 tablets (20 mg total) by mouth daily Active L gasseri/B bifidum/B longum ([employer] [facility]) Take 1 tablet by mouth daily [...] (06/15/2022): Added automatically from request for surgery [id number] History of anal cancer 06/15/2022 Overview (06/15/2022): Added automatically from request for surgery [id number] Chronic migraine without aur a without status migrainosus, not intractable 07/17/2021 Numbness and tingling of right lower extremity 0 07/14/2020 Lumbar radiculopathy 06/18/2020 Encounters Date Type Department Care Team Description 06/06/2024 8:59 AM INSTRUCTIONAL SYSTEMS DESIGN CONSULTANT - 06/06/2024 11:59 PM INSTRUCTIONAL SYSTEMS DESIGN CONSULTANT Hospital Encounter [facility] [address] [place] [address] Jose Garcia Md Esophageal dysphagia Discharge Disposition: Discharge to home or self care 05/28/2024 1:30 PM INSTRUCTIONAL SYSTEMS DESIGN CONSULTANT Office Visit [facility] at [facility] [address] [place] [address] [address] [phone] Leonila Hart MD Esophageal dysphagia (Primary Dx); Gastroesophageal reflux disease, unspecified whether esophagitis present; Functional diarrhea from Last 3 Months Surgical History Surgery Date Site/Laterality Comments CHOLECYSTECTOMY UMBILICAL HERNIA REPAIR BACK SURGERY TUBAL LIGATION UPPER GASTROINTESTINAL ENDOSCOPY Medical History Medical History Date Comments IBS (irritable bowel syndrome) Diverticulosis HBP (high blood pressure) Anal cancer (HCC) Aortic aneurysm Atrophy of kidney (terminal) Anal stenosis Incontinence of feces with fecal urgency PONV (postoperative nausea and vomiting) Headache Family History Medical History Relation Name Comments Heart disease Father Hypertension Father Hypertension Mother Relation Name Status Comments Father Mother Social History Tobacco Use Types Packs/Day Years [...] on file Legal Sex Female 9:47 PM INSTRUCTIONAL SYSTEMS DESIGN CONSULTANT Gender Identity Female 06/17/2020 8:08 AM CDT Sexual Orientation Straight 06/17/2020 8: 08 AM CDT Obstetrics History Last Filed Vital Signs Vital Sign Reading Time Taken Comments Blood Pressure 148/88 05/28/2024 1:45 PM INSTRUCTIONAL SYSTEMS DESIGN CONSULTANT Pulse 71 05/28/2024 1:45 PM INSTRUCTIONAL SYSTEMS DESIGN CONSULTANT Temperature 36.1 C (97 F) 08/23/2022 10:40 AM CDT Respiratory Rate 15 08/23/2022 10:40 AM CDT Oxygen Saturation 99% 05/28/2024 1:45 PM INSTRUCTIONAL SYSTEMS DESIGN CONSULTANT Inhaled Oxygen Concentration - - Weight 101.6 kg (224 lb) 05/28/2024 1:45 PM INSTRUCTIONAL SYSTEMS DESIGN CONSULTANT Height 157.5 cm (5' 2 ) 05/28/2024 1:45 PM INSTRUCTIONAL SYSTEMS DESIGN CONSULTANT Body Mass Index 40.97 05/28/2024 1:45 PM INSTRUCTIONAL SYSTEMS DESIGN CONSULTANT Plan of Treatment Health Maintenance Due Date Last Done Comments Cervical Cancer Screening 1960 Hepatitis C Screening 1960 DTaP/Tdap/Td Vaccine (1 - Tdap) 1970 Hepatitis B Screening 1977 Pneumococcal vaccine 65+ (1 of 1 - PCV) 2009 Zoster Vaccine (1 of 2) 2009 Breast Cancer Screening-Mammogram 08/03/2022 08/03/2021, 08/03/2021, 08/03/2021, Additional history exists Fall Risk Assessment 08/24/2023 08/23/2022 Covid-19 Vaccine (2023-2 5 season) 2023 02/05/2021, 06/28/2020, 06/05/2020 Influenza Vaccine (#1) 2023 01/12/2022, 2020 Depression Screening 12/15/2023 12/14/2022, 08/11/19 Well Visit 65+ 2024 Osteoporosis Screening-Bone Density Scan 08/09/2024 08/09/2022 Colon Cancer Screening-Colonoscopy 08/23/2032 08/23/2022 Colon Cancer Screening-CT Colonography Discontinued 08/23/2022 Colon Cancer Screening-DNA Stool Discontinued 08/24/19 Colon Cancer Screening-FIT Discontinued 08/23/2022 Colon Cancer Screening-Sigmoidoscopy Discontinued 08/23/2022 Procedures Procedure Name Priority Date/Time Associated Diagnosis Comments FL ESOPHAGRAM, SINGLE CONTRAST Schedule Routine, Read Routine (OP Routine) 06/06/2024 9:21 AM INSTRUCTIONAL SYSTEMS DESIGN CONSULTANT Esophageal dysphagia COLONOSCOPY 08/23/2022 9:32 AM CDT from Last 3 Months or Most Recently Relevant to Health Maintenance Results * FL Esophagram, Single Contrast (06/06/2024 9:21 AM INSTRUCTIONAL SYSTEMS DESIGN CONSULTANT) Anatomical Region Laterality Modality Body N/A Computed Radiogr aphy 06/06/2024 10:3 5 AM INSTRUCTIONAL SYSTEMS DESIGN CONSULTANT Impressions 06/06/2024 10:35 AM INSTRUCTIONAL SYSTEMS DESIGN CONSULTANT 1. PRESBYESOPHAGUS, MILD CONTRAST RETENTION DUE TO DELAYED EMPTYING. 2. HIATAL HERNIA WITHOUT GASTROESOPHAGEAL REFLUX. FLUORO TIME: 0.6 minutes Electronically signed by: Denilson Anderson M.D. Narrative 06/06/2024 10:35 AM INSTRUCTIONAL SYSTEMS DESIGN CONSULTANT EXAMINATION: FL ESOPHAGRAM BARIUM SWALLOW TO STOMACH, [...] minutes Electronically signed by: Denilson Anderson M.D. Leonila Hart MD IM FLUOROSCOPY PROCEDU RES Final Result * COLONOSCOPY (08/23/2022 9:32 AM CDT) Anatomical Region Laterality Modality Other Narrative Procedure Note Cecil Burrell MD - 08/23/2022 9:32 AM CDT - [facility] Patient Name: Lexii Kim Procedure Date: 08/23/2022 9:32 AM Date of : 1960 Admit Type: Outpatient Age: 62 Gender: Female Note Status: Finalized Attending MD: Cecil Burrell M.D. Procedure Date: 08/23/2022 Procedure: Colonoscopy Indications: Chronic diarrhea Providers: Cecil Burrell M.D., Elizabeth Bolaños, NEWS ASSISTANT (Anesthesia Staff), Hansa Barry RN, Vera Baird, Onion Topper Referring MD: Mei Starr M.D. Medicines: Monitored [...] bowel preparation was evaluated using the BBPS ([place] Bowel Preparation Scale) with scores of: Right [...] loose bowelmovement. Procedure Code(s): --- Professional --- 69177, Colonoscopy, flexible; with biopsy, singleor multiple Diagnosis Code(s): --- Professional --- K52.9, Noninfective gastroenteritis and colitis, unspecified CPT copyright 2020 [employer]. All rights reserved. The codes documented in this report are preliminary and upon outside sales account manager reviewmay be revised to meet current compliance requirements. Electronically signed by Cecil Burrell MD Cecil Burrell M.D. 08/23/2022 10:09:27 AM Number of Addenda: 0 Note Initiated On: 08/23/2022 9:32 AM us Cecil Burrell MD ENDOSCOPY PROCEDURES Final Resul t from Last 3 Months or Most Recently Relevant to Health Maintenance Insurance [facility] AETNA MEDICARE GOLD Care Teams Spike Machine Feeder Relationship Specialty [place] [address], [address] [place] [address] PCP - General Family Medicine 05/29/24 [place] [id number] [address] Surgeon Colon and Rectal Surgery 07/02/22
--- OUTSIDE RECORDS SUMMARY | 2024-06-08 13:02 | XMS_ITS | Encounter Summary ---
Author Organization [facility] Healthcare Address [address] [place] [address] Care Team Providers Care Staple Processing Machine Operator Name Role Phone Mei Starr MD Unavailable [phone] Jenelle Garcia NP Primary Care Provider [phone]- [phone] Reason for Referral * Diagnostic Imaging (Routine) - Closed Specialty Diagnoses / Procedures Referred By Sophia riojas Referred To Contact Diagnoses Esophageal dysphagia Procedures [place] [address] [place] [address] Phone: tel: fax: [address] [address] Referral ID Status Reason Start Date Expiration Date Visits Re quested Visits Authorized [id number] Closed 05/28/2024 06/27/2025 1 1 PHONE ASSEMBLER Reason for Visit * Diagnostic Imaging (Routine) - Closed Specialty Diagnoses / Procedures Referred By Contadelso t Referred To Contact Diagnoses Esophageal dysphagia Procedures [place] Esophagram, [place] [address] [place] [address] Phone: tel: fax:[phone] [address] Referral ID Status Reason Start Date Expiration Date Visits Re quested Visits Authorized [id number] Closed 05/28/2024 06/27/2025 1 1 Encounter Details Date Type Department Care Team (Latest Contact Info) Description 06/06/2024 8:59 AM TELEPHONE ASSEMBLER - 06/06/2024 11:59 PM TELEPHONE ASSEMBLER Hospital Encounter [facility] Diagnostic Imaging [address] [place] [address] Jose Garcia Md Esophageal dysphagia Discharge Disposition: Discharge to home or self care Social History Tobacco Use Types Packs/Day Years [...] on file Legal Sex Female 9:47 PM TELEPHONE ASSEMBLER Gender Identity Female 06/17/2020 8:08 AM CDT Sexual Orientation Straight 06/17/2020 8: 08 AM CDT documented as of this encounter Medications at Time of Discharge alendronate (FOSAMAX) 70 mg tablet Take 1 tablet (70 mg total) by mouth once a week Take on Sundays cholecalciferol, vitamin D3, (VITAMIN D3 ORAL) Take 3,000 Units by mouth daily diphenoxylate-atr opine (LOMOTIL) 2.5-0.025 mg per tablet TAKE 1 TABLET BY MOUTH 4 TIMES DAILY NEEDED FOR DIARRHEA 120 tablet 04/27/2024 L gasseri/B bifidum/B longum ([place] [facility] ORAL) Take 1 tablet by mouth daily lisinopril (PRINIVIL,ZESTRIL ) 10 mg tablet Take 2 tablets (20 mg total) by mouth daily metoprolol tartrate (LOPRESSOR) 25 mg immediate release tablet Take 0.5 tablets (12.5 mg total) by mouth 2 (two) times a day 06/12/[address] (PROTONIX) 40 mg EC tablet Take 1 tablet (40 mg total) by mouth daily 90 tablet 3 05/28/2024 documented as of this encounter Discharge Disposition Disposition Code Departure Means Destination Discharge to home or self care documented in this encounter Plan of Treatment Not on file documented as of this encounter Procedures Procedure Name Priority Date/Time Associated Diagnosis Comments FL ESOPHAGRAM, SINGLE CONTRAST Schedule Routine, Read Routine (OP Routine) 06/06/2024 9:21 AM TELEPHONE ASSEMBLER Esophageal dysphagia documented in this encounter Results * FL Esophagram, Single Contrast (06/06/2024 9:21 AM TELEPHONE ASSEMBLER) Anatomical Region Laterality Modality Body N/A Computed Radiogr aphy 06/06/2024 10:3 5 AM TELEPHONE ASSEMBLER Impressions 06/06/2024 10:35 AM TELEPHONE ASSEMBLER 1. PRESBYESOPHAGUS, MILD CONTRAST RETENTION DUE TO DELAYED EMPTYING. 2. HIATAL HERNIA WITHOUT GASTROESOPHAGEAL REFLUX. FLUORO TIME: 0.6 minutes Electronically signed by: Denilson Anderson M.D. Narrative 06/06/2024 10:35 AM TELEPHONE ASSEMBLER EXAMINATION: FL ESOPHAGRAM BARIUM SWALLOW TO STOMACH, [...] by: Denilson Anderson M.D. Leonila Hart MD IMG FLUOROSCOPY PROCEDU RES Final Result documented in this encounter Visit Diagnoses Diagnosis Esophageal dysphagia Dysphagia, pharyngoesophageal phase documented in this encounter Administered Medications Inactive Administered Medications - up to 3 most recent administrations Medication Order MAR Action Action Date Dose Rate Site barium sulfate (LIQUID E-Z-PAQUE) 60 % (w/v) suspension 355 mL 355 mL (1 Bottle), oral, Once in imaging, contrast, Starting on Tue06/06/24 at 0916, For 1 dose, Shake well Contrast Given 06/06/2024 9:22 AM TELEPHONE ASSEMBLER 355 mL documented in this encounter Orders Medications Ordered That Brennen ht Not Have Been Administered Count Last Ordered Date First Ordered Date barium sulfate (LIQUID E-Z-P AQUE) 60 % (w/v) suspension 355 mL 1 06/06/2024 documented in this encounter Care Teams Staple Processing Machine Operator Relationship Specialty [place] [address] [address] [place] [address] PCP - General Family Medicine 05/29/24 [place] [address] [address] Surgeon Colon and Rectal Surgery 07/02/22 documented as of this encounter
--- OUTSIDE RECORDS SUMMARY | 2024-06-08 13:02 | XMS_ITS | Referral Summary ---
Author Organization [facility] [employer] [facility] Address [address] [place] [address] Care Team Providers Care Automatic Clipper And Stripper Name Role Phone Ragini Baumann PA-C Primary Care Provider Source Comments [facility] [employer],non-owned Affiliates and Associated Physician Practices is amultiple site organization consisting of ambulatory clinics and hospital sitesin [place], [place], [place] and [place]. This disclosure is being madepursuant to the Care Everywhere program and may not contain all information available regarding this patient. Last updated 17.[facility] Allergies No known active allergies Medications * Be aware that medications may not be up to date on this document. Alwaysverify current medications with the patient. Medication Sig Dispensed Refills Start Date End Date Status lisinopril (Prinivil; Zestril) 10 MG tablet Take 1 (one) tablet by mouth once daily 03/14/2022 Active metoprolol succinate XL 24hr (Toprol XL) 25 MG tablet Take 0.5 (one-half) tablet by mouth 2 times daily 12/14/2021 Active alendronate (Fosamax) 70 MG tablet Take 1 (one) tablet by mouth every 7 days Take in morning with full glass of water on empty stomach and remain upright for 30 min Active clobetasol emollient (Temovate E) 0.05 % cream Apply to affected area 2 times daily Active nystatin (Mycostatin) 814448 UNIT/GM ointmentIndications: Lichen sclerosus et atrophicus of the vulva Mix with the clobetasol ointment and apply to external vulvar tissues twice daily. 30 g 30 g 3 06/16/2022 Active clobetasol (Temovate) 0.05 % ointmentIndications: Lichen sclerosus et atrophicus of the vulva Apply to vulvar tissues twice daily 45 g 3 06/16/2022 Active Active Problems Problem Noted Date Diagnosed Date [...] Mass Index 41.79 06/16/2022 10:13 AM CDT Plan of Treatment Not on file Care Teams Automatic Clipper And Stripper Relationship Specialty Start Date End Date Ragini Baumann PA-C [address] [place] [address] PCP - General 06/16/22
--- OUTSIDE RECORDS SUMMARY | 2024-06-08 13:02 | XMS_ITS | Clinical Summary ---
Author Organization [facility] [employer] Address [address] [place] [address] Care Team Providers Care Senior Product Integrity Engineer Name Role Phone Ragini Baumann PA-C Primary Care Provider Source Comments [facility],non-owned Affiliates and Associated Physician Practices is amultiple site organization consisting of ambulatory clinics and hospital sitesin [place], [place], [place] and [place]. This disclosure is being madepursuant to the Care Everywhere program and may not contain all information available regarding this patient. Last updated 17.[facility] Allergies No known active allergies Medications * [...] area 2 times daily Active nystatin (Mycostatin) 388810 UNIT/GM ointmentIndications: Lichen sclerosus et atrophicus of [...] Atrophy of left kidney 04/26/2019 Hematochezia 04/26/2019 Family History Medical History Relation Name Comments CAD (Coronary Artery Disease) Father Renal Disease Mother Relation Name Status Comments Father Mother [...] 06/16/2022 10:13 AM CDT Plan of Treatment Health Maintenance Due Date Last Done Comments BONE DENSITY TESTING 1959 COLOGUARD (AGES 45-75) - COLON CA SCREENING 1959 COLON MONITORING 1959 COLONOSCOPY - COLON CA SCREENING 1959 CT COLONOGRAPHY - COLON CA SCREENING 1959 Colorectal Cancer Screening 1959 FIT - COLON CA SCREENING 1959 FLEX SIG - COLON CA SCREENING 1959 LIPID TESTING 1959 PAP SMEAR 1959 HIV SCREENING 1974 HEPATITIS C SCREENING 03/02/1977 DTAP/TDAP/TD VACCINES (1 - Tdap) 1978 PNEUMOCOCCAL VACCINE 50+ (1 of 1 - PCV) 2009 ZOSTER VACCINE (1 of 2) 2009 Respiratory Syncytial Virus (RSV) Vaccine Pt: or over 60 yrs (1 - Risk 60-74 years 1-dose series) 2019 SCREENING FOR DIABETES 05/04/2022 MAMMOGRAM 08/04/2023 08/03/2021, 0505/2021 (Done Outside Per Report), 03/12/2019 COVID-19 VACCINE (4 - 2023-2 5 season) 2023 02/05/2021, 06/28/2020, 06/05/2020 INFLUENZA VACCINE (#1) 2023 01/12/2022, 2020 DEPRESSION SCREENING 04/04/2024 HEPATITIS B VACCINE Aged Out No longe r eligible based on patient's age to complete this topic HIB VACCINE Aged Out No longer eligi ble based on patient's age to complete this topic HPV VACCINE Aged Out No longer eligi ble based on patient's age to complete this topic MENINGOCOCCAL (Group B) VACCINE Aged Out No longer eligible based on patient's age to complete this topic MENINGOCOCCAL VACCINE Aged Out No laurel jose alberto eligible based on patient's age to complete this topic Care Teams Senior Product Integrity Engineer Relationship Specialty Start Date End Date Ragini Baumann PA-C [address] [place] [address] PCP - General 06/16/22
--- OUTSIDE RECORDS SUMMARY | 2024-06-08 13:02 | XMS_ITS | Clinical Summary ---
Author Organization [facility] Address [address] [address] Care Team Providers Care Rater Associate Name Role Phone Ragini Baumann PA-C Primary Care Provider Allergies No known active allergies Medications Cholecalciferol 75 MCG (3000 UT) tablet Take 1 capsule by mouth 1 (one) time each day 09/19/2019 Active lisinopril 10 MG tablet Take 1 tablet by mouth 1 (one) time each day Active metoprolol succinate XL (TOPROL XL) 25 MG 24 hr tablet Take 0.5 tablets by mouth 2 (two) times a day 05/30/2019 Active nitrofurantoin (MACRODANTIN) 100 MG capsule Take 100 mg by mouth in the morning and 100 mg in the evening. 7 day course. Active Active Problems Problem Noted Date Diagnosed Date Stage 3a chronic kidney disease 12/10/2020 Renal stone 12/10/2020 Vitamin D deficiency 12/10/2020 Essential hypertension 04/26/2019 Hydroureter 04/26/2019 Lesion of liver 04/26/2019 Family History Medical History Relation Comments Hypertension Child Heart disease Father Hypertension Father Cancer Mother Hypertension Mother Kidney disease Mother Hypertension Sibling Relation Status Comments Child Father Mother Sibling Social History Tobacco Use Types Packs/Day Years Used Date Smoking Tobacco: Never Alcohol Use Standard Drinks/Week Comments Yes 0 (1 standard drink = 0.6 oz pure alcohol) Alcoholic Drinks/day: Occasional social drink Comments Unknown Sex and Gender Information Value Date Recorded Sex Assigned at Not on file Legal Sex Female 2:51 PM EDT Gender Identity Not on file Sexual Orientation Not on file Last Filed Vital Signs Vital Sign Reading Time Taken Comments Blood Pressure 128/74 07/01/2022 2:34 PM CDT Pulse 63 07/01/2022 2:34 PM CDT Temperature 37 C (98.6 F) 07/01/2022 2:34 PM CDT Respiratory Rate 17 07/01/2022 2:34 PM CDT Oxygen Saturation 97% 07/01/2022 2:34 PM CDT Inhaled Oxygen Concentration - - Weight 104 kg (229 lb 9.6 oz) 07/01/2022 2:34 PM CDT Height 162.6 cm (5' 4 ) 07/01/2022 2:34 PM CDT Body Mass Index 39.41 07/01/2022 2:34 PM CDT Plan of Treatment Health Maintenance Due Date Last Done Comments Breast Cancer Screening 1959 Pneumococcal Vaccine: 65+ Ye ars (1 of 2 - PCV) 1965 Pneumococcal Vaccine: Pediat rics (0 to 5 Years) and At-Risk Patients (6 to 64 Years) (1 of 2 - PCV) 1965 Colorectal Cancer Screening: Annual FOBT 2008 Colorectal Cancer Screening: Colonoscopy 2008 Colorectal Cancer Screening: Sigmoidoscopy 2008 Influenza Vaccine (#1) 2023 Hepatitis B Vaccine Aged Out No longe r eligible based on patient's age to complete this topic Insurance [place] [employer] Care Teams Rater Associate Relationship Specialty Start Date End Date Ragini Baumann PA-C [address] [place] [address] PCP - General Physician Concrete Panel Installer 12/12/20
--- OUTSIDE RECORDS SUMMARY | 2024-06-08 13:02 | XMS_ITS | CONTINUITY OF CARE DOCUMENT ---
Author Name whitley arreaga Address Unknown Organization [facility] Address [address] [address] [facility] [address] [place] [address] Phone [phone] Care Team Providers Care Ccu Nurse Name Role Phone Bahman AMARAL, Lupe Unavailable [phone] INSURANCE PROVIDERS Payer name Policy type / Coverage type [place] [employer] party ID [employer] HMO POS Group health plan [id number]
--- OUTSIDE RECORDS SUMMARY | 2024-06-08 13:02 | XMS_ITS | Clinical Summary ---
Author Organization [facility] Address [address] [place] [address] Care Team Providers Care Systems Auditor Name Role Phone Jose Jenelle Black [facility] Primary Care Provider + Allergies No known active allergies Medications clobetasol (TEMOVATE) 0.05 % Cream Apply topically 2 (two) times daily. Active Acetaminophen (TYLENOL ARTHRITIS EXT RELIEF OR) Take by mouth daily. Active pantoprazole EC (PROTONIX) 40 MG tablet 04/27/19 25 Active nystatin (MYCOSTATIN) ointment MIX WITH CLOBETASOL OINTMENT AND APPLY TO EXTERNAL VULVAR TISSUES TWICE DAILY Active vitamin D3 (CHOLECALCIFERO L) 25 mcg tablet Take by mouth daily. Active diphenoxylate-a tropine (LOMOTIL) 2.5-0.025 MG tablet Take 1 tablet by mouth 4 (four) times daily as needed for Diarrhea. Active lisinopril (PRINIVIL) 10 MG tabletIndicatio ns:Primary hypertension Take 1 tablet (10 mg total) by mouth 2 (two) times daily. 180 tablet 1 05/10/19 25 Active metoprolol tartrate (LOPRESSOR) 25 MG tabletIndicatio ns:Primary hypertension Take 0.5 tablets (12.5 mg total) by mouth 2 (two) times daily. 180 tablet 1 05/10/19 25 Active benzonatate (TESSALON PERLES) 100 MG capsuleIndicati ons:Cough Take 1 capsule (100 mg total) by mouth every 8 (eight) hours as needed for Cough. 30 capsule 05/16/19 25 Active lisinopril (PRINIVIL) 10 MG tablet Take 2 tablets (20 mg total) by mouth 2 (two) times daily. 03/14/20 22 025 Discontinued(R eorder) metoprolol tartrate (LOPRESSOR) 25 MG tablet Take 0.5 tablets (12.5 mg total) by mouth 2 (two) times daily. 06/13/19 23 025 Discontinued(R eorder) vitamin D3, cholecalciferol , (VITAMIN D-3) 10 mcg tablet Take 300 tablets (3,000 mcg total) by mouth daily. 025 Discontinued amoxicillin-cla vulanate (AUGMENTIN) 875-125 MG tabletIndicatio ns:Non-recurren t acute suppurative otitis media of left ear without spontaneous rupture of tympanic membrane Take 1 tablet (875 mg total) by mouth 2 (two) times daily for 10 days. 20 tablet 05/10/19 25 025 Active Problems Problem Noted Date Diagnosed Date Morbid obesity 05/15/2024 Stage 3a chronic kidney disease ([facility] ) 05/15/2024 Lactose intolerance 05/15/2024 Functional diarrhea 08/10/2022 Anogenital lichen sclerosus 08/09/2022 Overview (05/15/2024): Dr Funk at [facility]. uses clobetason Albuminuria 08/09/2022 Aneurysm of thoracic aorta 08/09/2022 History of malignant neoplasm of colon Irritable bowel syndrome 08/09/2022 Neuropathy 08/09/2022 Osteopenia 08/09/2022 History of anal cancer 06/15/2022 Overview (05/15/2024): Added automatically from request for surgery [id number] Chronic migraine without aur a without status migrainosus, not intractable 07/17/2021 Renal stone 12/10/2020 Overview (05/15/2024): R kidney Vitamin D deficiency 12/10/2020 Numbness and tingling of right lower extremity 0 07/14/2020 Lumbar radiculopathy 06/18/2020 Atrophy of left kidney 04/25/2019 Diverticulosis of colon 04/25/2019 Essential hypertension 04/25/2019 History of rectal bleeding 04/25/2019 Lesion of liver 04/25/2019 Resolved Problems Problem Noted Date Diagnosed Date Resolved Date Acute upper respiratory infe ction due to respiratory syncytial virus (RSV) 05/07/20242024 Overview (05/15/2024): Everyone in my home has it. I love with my 3 grandkids that brought it home from school Anal stenosis 06/15/2022 05/15/2024 Overview (05/15/2024): Added automatically from request for surgery [id number] Encounters Date Type Department Care Team Description 05/29/2024 Scan [facility] Scanned, [facility] 05/23/2024 Scan [facility] INFO [facility] Scanned, [facility] 05/14/2024 [employer] Message Enc [facility] Family [facility] Internal Medicine [address] [address] Jenelle Garcia FNP-BC Blood pressure 05/10/2024 11:20 AM PYTHON ARCHITECT Office Visit [facility] Family & Internal [address] [address] Jenelle Garcia APPRENTICESHIP REPRESENTATIVE-BC Meet and Greet Provider (New Patient- pt is also having cough, ear pain, fatigued X 4 days ) 05/10/2024 Travel 05/04/2024 Patient Outreach [facility] Medicine [address] [address] Lisa Victoria MA Pre-visit Gap Closure from Last 3 Months Immunizations Name Administration Dates Next Due Influenza (Generic) 01/12/2022 Influenza Adult (Generic) 01/20/2021 PFIZER COVID-19 (ORIGINAL FO RMULATION, PURPLE CAP) mRNA, LNP-S, PF, 30 MCG/0.3 ML DOSE 02/05/2021,06/28/2020,06/05/2020 Family History Medical History Relation Comments Hypertension Brother Mental Health Brother Autistic Heart Disease Father Heart Attack pas sed at age 65 Hypertension Father Hypertension Mother Kidney Disease Mother Hypertension Sister 1 Hypertension Sister 2 Relation Status Comments Brother Father Mother Sister 1 Sister 2 Social History Tobacco Use Types Packs/Day Years Used Date Smoking Tobacco: Never Smokeless Tobacco: Never Tobacco Cessation:Counseling Given: Not Answered Alcohol Use Standard Drinks/Week Comments Not Currently 0 (1 standard drink = 0.6 oz pur e alcohol) PHQ-2 Answer Date Recorded Patient Health Questionnaire-2 Score 0 05/10/2024 Comments No Sex and Gender Information Value Date Recorded Sex Assigned at Female 05/10/2024 2:04 PM PYTHON ARCHITECT Legal Sex Female 6:43 PM CDT Gender Identity Female 05/10/2024 2:04 PM PYTHON ARCHITECT Sexual Orientation Not on file Last Filed Vital Signs Vital Sign Reading Time Taken Comments Blood Pressure 150/100 05/10/2024 12:33 PM PYTHON ARCHITECT PCP aware and insructions given to patient Pulse 64 05/10/2024 11:38 AM PYTHON ARCHITECT Temperature 36.1 C (97 F) 05/10/2024 11:38 AM PYTHON ARCHITECT Respiratory Rate 16 05/10/2024 11:3 8 AM PYTHON ARCHITECT Oxygen Saturation 97% 05/10/2024 11: 38 AM PYTHON ARCHITECT Inhaled Oxygen Concentration - - Weight 100.7 kg (222 lb) 05/10/2024 11: 38 AM PYTHON ARCHITECT Height 158.1 cm (5' 2.25 ) 05/10/2024 1 1:38 AM PYTHON ARCHITECT Body Mass Index 40.28 05/10/2024 11:38 AM PYTHON ARCHITECT Plan of Treatment Upcoming Encounters Date Type Department Care Team (Late st Contact Info) Description 06/28/2024 1:30 PM CDT Appointment [facility] Mammography [address] [place] [address] Jneelle Garcia, APPRENTICESHIP REPRESENTATIVE-BC [address] [facility], [address] [address] 08/08/2024 10:20 AM CDT Office Visit [facility] Family & Internal Medicine [facility] [id number] [place] [phone] Jenelle Garcia, APPRENTICESHIP REPRESENTATIVE-BC [address], [address] [place] [address] Health Maintenance Due Date Last Done Comments Hepatitis C 1977 DTaP, Tdap and Td Vaccines ( 1 - Tdap) 1978 Zoster Vaccines (1 of 2) 2009 RSV Immunization or 60+ Years (1 - Risk 60-74 years 1-dose series) 2019 Mammogram Screening 08/04/2023 08/03/2021, 07/30/2020, 03/12/2019 Influenza Adult (#1) 2024 01/12/2022, 01/20/2021 Dexa Scan (General) 2024 Pneumococcal Vaccine: 65+ Years (1 of 1 - PCV) 2024 COVID-19 Vaccine (4 - 2023-2 5 season) 2025 02/05/2021, 06/28/2020, 06/05/2020 Postponed from 12/04/2023 (Patient Refused) Colorectal Cancer Screening Colonoscopy (10 Years) 08/23/2032 08/23/2022 PHQ-2 (Physician [place]) Completed 05/10/2024 Meningococcal B Vaccine Aged Out No l onger eligible based on patient's age to complete this topic Meningococcal Vaccine Aged Out No laurel jose alberto eligible based on patient's age to complete this topic Pneumococcal Vaccine: Pediatrics (0 to 5 Years) and At-Risk Patients (6 to 64 Years) Aged Out No longer eligible b ased on patient's age to complete this topic RSV Immunizations Under 20 Months Aged Out No longer eligible b ased on patient's age to complete this topic Procedures Procedure Name Priority Date/Time Associated Diagnosis Comments CORONAVIRUS (COVID-19) INFLUENZA A & B ANTIGEN IA PANEL Routine 05/10/2024 Suspected COVID-19 virus infection COLONOSCOPY/EGD GENERIC (SCAN ORDER) Routine 08/23/2022 from Last 3 Months or Most Recently Relevant to Health Maintenance Results * (ABNORMAL) CORONAVIRUS (COVID-19) INFLUENZA A & B ANTIGEN IA PANEL (05/10/2024) CORONAVIRUS ANTIGEN IA NEGATIVE NEGATIVE -[id number] [address], [place] INFLUENZA A POSITIVE(A) NEGATIVE -128 60 [address], [place] INFLUENZA B NEGATIVE NEGATIVE -51048 [address] COLLIERE, [place] Internal Control: VALID VALID -29112 [facility] [place] NASAL STRUCTURE / Unknown 05/10/2024 us Jenelle Garcia [facility] MICROBIOLOGY - GENERAL O RDERABLES Final Result -[id number] [address], [place] [address] [place] [address], * COLONOSCOPY/EGD (08/23/2022) us Doc [facility] Scanned SCANNING Final Resu lt [facility] ONBASE from Last 3 Months or Most Recently Relevant to Health Maintenance Insurance [employer] Care Teams Systems Auditor Relationship Specialty Start Date End Date Jenelle Garcia, [facility] [address], [address] [place] [address] PCP - General Nurse Practitioner Family 05/09/24
[2024-06-08 13:07] LABS: Hemoglobin A1C 5.5 % (<5.7)
[2024-06-08 13:58] LABS: Alanine Aminotransferase 16 U/L (14-59); Albumin Level 3.9 g/dL (3.4-5.0); Alkaline Phosphatase 91 U/L (46-116); Anion Gap 5 mmol/L (4-12); Aspartate Amino Transferase 10 U/L (15-37); Bilirubin,Total 0.8 mg/dL (0.00-1.00); Blood Urea Nitrogen 24 mg/dL (7-18); Calcium 9.6 mg/dL (8.5-10.1); Carbon Dioxide 32 mmol/L (21-32); Chloride 103 mmol/L (98-108); Cholesterol 209 mg/dL (0-200); Estimated Glomerular Filt Rate 52; Glucose 97 mg/dL (70-99); HDL Direct 65 mg/dL (40-60); LDL Cholesterol Calculated 124 mg/dL (<130); Magnesium 2.1 mg/dL (1.8-2.4); Osmolality Calculated 294 mOsm/kg (285-295); Potassium 4.7 mmol/L (3.5-5.1); Sodium 140 mmol/L (136-145); Total Protein 7.9 g/dL (6.4-8.2); Triglycerides 98 mg/dL (0-150)
[2024-06-08 13:59] LABS: Thyroid Stimulating Hormone Reflex 0.93 u/IU/mL (0.36-3.74)
[2024-06-11 14:33] LABS: Vitamin D 25 Hydroxy 20 ng/mL (30-100)
== END 2024-06-08 12:42 | disposition home or self-care (01) ==
LOC: CHSLAB 12:45
PROVIDERS: PCP Nurse Practitioner Family; Visit Provider Internal Medicine Cardiovascular Disease
DX: I10 Essential (primary) hypertension (principal); E55.9 Vitamin D deficiency, unspecified; R79.89 Other specified abnormal findings of blood chemistry
CPT/HCPCS: 36415; 80053; 80061; 82306; 83036; 83735; 84443; 85025

== ENCOUNTER 2024-07-04 07:58 | Outpatient (CLI) | payer MEDICARE, SELFPAY ==
--- NOTE | ~2024-07-04 | CT_ITS ---
EXAMINATION: CTA chest DATE: 07/04/2024 08:41 INDICATION: Thoracic aortic aneurysm TECHNIQUE: Computed tomographic angiography (CTA) of the chest was performed with 100 mL Omnipaque-35 0 intravenous contrast. Volume-rendered 3D-reconstructions of the aorta and large arteries were const ructed by the technologist on a separate workstation. Automated exposure control and iterative recons truction technique were employed. The dose-length product was 424.12 mGy-cm. COMPARISON: 06/25/2021 and 05/23/2020 FINDINGS: Fusiform aneurysm of ascending thoracic aorta measuring up to 4.2 x 4.0 cm in maximal diameter. The a isacc tapers to normal caliber at the apex of the arch and throughout the descending thoracic aorta wi th no dissection. Minimal dependent atelectasis in the lungs. No pneumonia, pulmonary edema or pleura l effusion. Heart size is normal. No pericardial effusion. No pathologically enlarged thoracic lympha denopathy. Small sliding-type hiatal hernia. Cholecystectomy clips the gallbladder fossa. Unchanged s evere hydronephrosis at the severely atrophic left kidney. Moderate thoracic spondylosis. IMPRESSION: 1. Unchanged mild fusiform ascending thoracic aortic aneurysm measuring up to 4.2 cm. 2. Unchanged chronic severe hydronephrosis of the severely atrophic left kidney. 2. Small sliding type hiatal hernia. Reviewed, dictated and finalized at location A. IMPRESSION: 1. Unchanged mild fusiform ascending thoracic aortic aneurysm measuring up to 4 .2 cm. 2. Unchanged chronic severe hydronephrosis of the severely atrophic left kidney . 2. Small sliding type hiatal hernia.
--- OUTSIDE RECORDS SUMMARY | 2024-07-04 08:05 | XMS_ITS | Clinical Summary ---
Author Organization [facility] Address [address] [place] [address] Care Team Providers Care Thermite Bomb Loader Name Role Phone Jose Ronaldo Black [facility] Primary Care Provider + Allergies No known active allergies Medications clobetasol (TEMOVATE) 0.05 % Cream Apply topically 2 (two) times daily. Active Acetaminophen (TYLENOL ARTHRITIS EXT RELIEF OR) Take by mouth daily. Active pantoprazole EC (PROTONIX) 40 MG tablet 5 Active nystatin (MYCOSTATIN) ointment MIX WITH CLOBETASOL OINTMENT AND APPLY TO EXTERNAL VULVAR TISSUES TWICE DAILY Active vitamin D3 (CHOLECALCIFEROL) 25 mcg tablet Take by mouth daily. Active diphenoxylate-atr opine (LOMOTIL) 2.5-0.025 MG tablet Take 1 tablet by mouth 4 (four) times daily as needed for Diarrhea. Active lisinopril (PRINIVIL) 10 MG tabletIndications :Primary hypertension Take 1 tablet (10 mg total) by mouth 2 (two) times daily. 180 tablet 1 5 Active metoprolol tartrate (LOPRESSOR) 25 MG tabletIndications :Primary hypertension Take 0.5 tablets (12.5 mg total) by mouth 2 (two) times daily. 180 tablet 1 5 Active benzonatate (TESSALON PERLES) 100 MG capsuleIndication s:Cough Take 1 capsule (100 mg total) by mouth every 8 (eight) hours as needed for Cough. 30 capsule 5 Active vitamin D3 (CHOLECALCIFEROL) 1.25 mg capsuleIndication s:Vitamin D deficiency Take 1 capsule (50,000 Units total) by mouth once a week. 8 capsule Active Active Problems Problem Noted Date Diagnosed Date Morbid obesity 05/15/2024 Stage 3a chronic kidney disease 05/15/2024 Lactose intolerance 05/15/2024 Functional diarrhea 08/10/2022 Anogenital lichen sclerosus 08/09/2022 Overview (05/15/2024): Dr Funk at [facility]. uses clobetason Albuminuria 08/09/2022 Aneurysm of thoracic aorta 08/09/2022 History of malignant neoplasm of colon Irritable bowel syndrome 08/09/2022 Neuropathy 08/09/2022 Osteopenia 08/09/2022 History of anal cancer 06/15/2022 Overview (05/15/2024): Added automatically from request for surgery [id number] Chronic migraine without aur a without status [...] (05/15/2024): Added automatically from request for surgery [id number] Encounters Date Type Department Care Team Description 06/28/2024 1:01 PM CDT - 06/28/2024 11:59 PM CDT Hospital Encounter [facility] Mammography [address] [place], [place] [id number] Ronaldo Alegria, PILING CUTTER-BC Discharge Disposition: Home or Self Care (Routine Discharge) 06/28/2024 Travel 06/15/2024 MyChart Message Enc [facility] [address] [address] Ronaldo Alegria, PILING CUTTER-BC Blood Pressure medication change 06/14/2024 Orders Only [facility] [address] [address] Ronaldo Alegria, PILING CUTTER-BC 06/08/2024 Scan [facility] Scanned, [facility] (SCAN) 06/08/2024 Scan [facility] Scanned, [facility] (SCAN) 06/08/2024 MyChart Message Enc [facility] [address] [address] Ronaldo Alegria, PILING CUTTER-BC Blood work 05/29/2024 Scan [facility] Scanned, [facility] 05/23/2024 Scan [facility] Scanned, [facility] 05/14/2024 MyChart Message Enc [facility] Internal [address] [address] Ronaldo Alegria, PILING CUTTER-BC Blood pressure 05/10/2024 11:20 AM VERTICAL MILL OPERATOR Office Visit [facility] [address] [address] Ronaldo lAegria PILING CUTTER-BC Meet and Greet Provider (New Patient- pt is also having cough, ear pain, fatigued X 4 days ) 05/10/2024 Travel 05/04/2024 Patient Outreach [facility] [address] [address] Lisa Victoria MA Pre-visit [place] [...] Mother Hypertension Sister 1 Hypertension Sister 2 Breast Cancer Neg Hx Relation Status Comments Brother Father Mother Sister [...] Sex Assigned at Female 05/10/2024 2:04 PM VERTICAL MILL OPERATOR Legal Sex Female 6:43 PM CDT Gender Identity Female 05/10/2024 2:04 PM VERTICAL MILL OPERATOR Sexual Orientation Not on file Last Filed Vital Signs Vital Sign Reading Time Taken Comments Blood Pressure 150/100 05/10/2024 12:33 PM VERTICAL MILL OPERATOR PCP aware and insructions given to patient Pulse 64 05/10/2024 11:38 AM VERTICAL MILL OPERATOR Temperature 36.1 C (97 F) 05/10/2024 11:38 AM VERTICAL MILL OPERATOR Respiratory Rate 16 05/10/2024 11:3 8 AM VERTICAL MILL OPERATOR Oxygen Saturation 97% 05/10/2024 11: 38 AM VERTICAL MILL OPERATOR Inhaled Oxygen Concentration - - Weight 100.7 kg (222 lb) 05/10/2024 11: 38 AM VERTICAL MILL OPERATOR Height 158.1 cm (5' 2.25 ) 05/10/2024 1 1:38 AM VERTICAL MILL OPERATOR Body Mass Index 40.28 05/10/2024 11:38 AM VERTICAL MILL OPERATOR Plan of Treatment Upcoming Encounters Date Type Department Care Team (Late st Contact Info) Description 08/08/2024 10:20 AM CDT Office Visit [facility] [id number] [place], [place] [phone] Ronaldo Alegria, [facility] [address] [facility], [address] [place] [address] Health Maintenance Due Date Last Done Comments Hepatitis C 1977 DTaP, Tdap and Td Vaccines (1 - Tdap) 1978 Zoster Vaccines (1 of 2) 2009 RSV Immunization or 60+ Years (1 - Risk 60-74 years 1-dose series) 2019 Dexa Scan (General) 2024 Pneumococcal Vaccine: 65+ Years (1 of 1 - PCV) 2024 COVID-19 Vaccine ( - season) 2025 02/05/2021, 06/28/2020, 06/05/2020 Postponed from 12/04/2023 (Patient Refused) Mammogram Screening 06/28/2026 06/28/2024, 08/03/2021, 07/30/2020, Additional history exists Colorectal Cancer Screening Colonoscopy (10 Years) 08/23/2032 08/23/2022 PHQ-2 (Physician [place]) Completed 05/10/2024 Meningococcal B Vaccine Aged Out No l onger eligible based on patient's age to complete this topic Meningococcal Vaccine Aged Out No laurel jose alberto eligible based on patient's age to complete this topic Pneumococcal Vaccine: Pediatrics (0 to 5 Years) and At-Risk Patients (6 to 64 Years) Aged Out No longer eligible based on patient's age to complete this topic RSV Immunizations Under 20 Months Aged Out No longer eligible based on patient's age to complete this topic Procedures Procedure Name Priority Date/Time Associated Diagnosis Comments MG SCREENING W DARNELL PATRICIA DIGI Routine 06/28/2024 3:01 PM CDT Encounter for screening mammogram for malignant neoplasm of breast OUTSIDE LAB (SCAN ORDER) Routine 06/08/2024 OUTSIDE LAB (SCAN ORDER) 06/08/2024 OUTSIDE LAB (SCAN ORDER) 06/08/2024 CORONAVIRUS (COVID-19) INFLUENZA A & B ANTIGEN IA PANEL Routine 05/10/2024 Suspected COVID-19 virus infection COLONOSCOPY/EGD GENERIC (SCAN ORDER) Routine 08/23/2022 from Last 3 Months or Most Recently Relevant to Health Maintenance Results * MG SCREENING W DARNELL PATRICIA DIGI (06/28/2024 3:01 PM CDT) Anatomical Region Laterality Modality Breast Bilateral Mammography 06/28/2024 4:34 PM CDT Impressions 06/28/2024 4:37 PM CDT ===== IMPRESSION: ===== 1. Stable mammographic appearance with no new findings to suggest malignancy in either breast. Assessment: ACR BI-RADS 1 - NEGATIVE Recommendation: 1:Routine Screening Bilateral Comments: Ordered By: RONALDO ALEGRIA Interpreted By: Mars Stein, 06/28/2024 4:34 PM Narrative 06/28/2024 4:37 [place] [address] EXAMINATION: Digital bilateral screening mammogram with 3-D tomosynthesis EXAM DATE/TIME: 06/28/2024 1:02 PM REASON FOR EXAM: breast cancer screening COMPARISON: 05/22/2015.. 06/27/2012 Technique: Digital screening mammography of both breasts was performed in addition to 3-D Tomosynthesis technique. This study was read with the assistance of a computer-aided detection system. Tissue density: There are scattered areas of fibroglandular density. Findings: There is no new focal asymmetry, dominant mass lesion, area of skin thickening, or cluster of suspicious appearing calcifications in either breast to suggest malignancy. us Ronaldo Alegria PILING CUTTER-BC MAMMO Final Re sult * OUTSIDE LAB (06/08/2024) Only the most recent of3 resultswithin the time period is included. HGB A1C 5.5 % [facility] 06/08/2024 [facility] Scanned SCANNING Final Resu lt [facility] * (ABNORMAL) CORONAVIRUS (COVID-19) INFLUENZA A & B ANTIGEN IA PANEL (05/10/2024) CORONAVIRUS ANTIGEN IA NEGATIVE NEGATIVE [id number], [place] INFLUENZA A POSITIVE(A) NEGATIVE [id number], [place] INFLUENZA B NEGATIVE NEGATIVE [id number], [place] Internal Control: VALID VALID [id number], [place] NASAL STRUCTURE / Unknown 05/10/2024 Ronaldo Alegria [facility] MICROBIOLOGY - GENERAL O RDERABLES Final Result Performing Organization Address [facility]/ZIP Co de Phone Number -[phone], [place] [address] [place] [address], [place] [phone] * COLONOSCOPY/EGD (08/23/2022) [facility] Scanned SCANNING Final Resu lt [facility] from Last 3 Months or Most Recently Relevant to Health Maintenance Insurance [employer] Care Teams Thermite Bomb Loader Relationship Specialty Start Date End Date Ronaldo Alegria, [facility]- [address], [address] [place] [address] PCP - General Nurse Practitioner Family 05/09/24
--- OUTSIDE RECORDS SUMMARY | 2024-07-04 08:05 | XMS_ITS | CONTINUITY OF CARE DOCUMENT ---
Author Name whitley arreaga Address Unknown Organization [facility] Address [address] [address] [place] [address] Phone [phone] Care Team Providers Care Press Secretary Name Role Phone Bahman AMARAL, Lupe Unavailable INSURANCE PROVIDERS Payer name Policy type / Coverage type Plato red libertarian ID COVENTRY HMO POS Group health plan [id number]
--- OUTSIDE RECORDS SUMMARY | 2024-07-04 08:05 | XMS_ITS | Data Portability ---
Author Organization [facility] RAJAT [place] Address [address] [facility] [place] [address] Care Team Providers Care Product Developer Name Role Phone ROCK ANAND Primary Care Provider Assessment Encounter Date Assessment Date Assessment LastModified by Organization Details LastModified Time 06/01/2021 06/01/[address] scan for AAA. cardiology on June 08. kidney doctor. Not available 06/01/2021 14:40:28 08/09/2022 08/09/2022 cbc, renal function, vitamin D reviewed and normal from 06/2022 done nephrology. Not available 08/09/2022 11:45:51 Plan of Treatment Reminders Order Date Submit Date Provider Last Modified By Organization Details Last Modified Time Details Appointments None recorded. Lab HbA1c (hemoglobi n A1c), blood 2022 023 [facility], [address] [facility], [address], [place], [address], 3 09:14:56 TSH + free T4, serum 2022 023 [facility], [address] [facility], [address], [place], [address], 3 09:14:55 lipid panel, serum 2022 023 [facility], [address] [facility], [address], [place], [address], 3 18:27:48 urinalysis , dipstick 2022 023 [email or web address] In-Office Order, Internal Use Only DO Not Attach Compendium DO Not Attach Compendium, Do Not Delete/merge, [id number] 13:04:26 culture, urine 2022 023 [facility], [address] [place] [address], [address], [place], [address], 3 17:10:00 TSH + free T4, serum 2021 022 [facility], [address] [place] [address], [address], [place], [address], 2 20:08:33 vitamin B12 + folate, serum or blood 2021 022 [facility], [address] [place] [address], [address], [place], [address], 2 20:08:34 Referral gastroente rologist referral - hx of colon cancer s/p radiation 2000, IBS, diarrhea 2022 023 [place], [address], [place], [address], 3 09:36:44 audiologis t referral 2021 022 JO[facility], [facility] [address], [place], [address], 2 12:25:10 neurologis t referral 2021 022 MARISELA Segura MD, [address] [place] [address] Dr, [place] [address], [place], [address], 2 15:12:12 ophthalmol ogist referral - Epidermal cyst affecting right orbital area 2020 021 [facility], [address] [facility], [place], [address], 2 12:29:38 Procedures None recorded. Surgeries None recorded. Imaging DEXA 2022 023 [facility] (Im[facility]), [address], [place], [address], 3 15:35:48 Medication Orders None recorded. Patient TargetsNo targets recorded. Patient Instructions Encounter Date Encounter Id Patient Instructions Last Modified By Organization Details Last Modified Time 05/14/2020 [id number] Discussed excision to epidermal cyst. Will consider in the future if/when more symptomatic. Recommended the daily use of sunscreen (SPF 30+). May apply vaseline to cryosurgery sites once daily x 1 week. nspiller Not available 05/14/2020 11:02:56 12/10/2020 [id number] Recommend patien t to see an ophthalmic surgeon for cyst removal as cyst lesion has now progressed down to placement on the right upper orbital rim. Referral request submitted. Reassurance given for resolution of previously treated actinic keratoses. 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 for Referral Human Resource Professional Referral for Epidermoid cyst Epidermal cyst affecting right orbital area Referring Physician: Valentine Rodriguez, Dermatology, Encounter Date: 12/10/2020 Neurologist Referral for Mor chica headache Referring Physician: Rock Anand Cattle Dipper, Encounter Date: 06/01/2021 Wildland Fire Operations Specialist Referral for Hea ring loss of right ear Referring Physician: [facility], Encounter Date: 06/01/2021 Cruise Coordinator Referral for Irritable bowel syndrome hx of colon cancer s/p radiation 2000, IBS, diarrhea Referring Physician: [facility], Encounter Date: 08/09/2022 Results Created Date Observation Date Name Description Value Unit Range Abnormal Flag Note LastModifiedBy Organization Detail LastModifiedTime 06/01/19 22 06/02/2021 TSH+F REE T4 TSH 0.022 uIU/m L 0.450- 4.500 below low normal Not Available [facility] ([facility]) [address] [place], [address], 06/02/2021 20:08:33 06/01/19 22 06/02/2021 TSH+F REE T4 T4,free(dire ct) 1.68 NG/dL 0.82-1 .77 Not Available [facility] ([facility]) [address] [place], [address], 06/02/2021 20:08:33 06/01/19 22 06/02/2021 COMP. METAB OLIC PANEL (14) glucose 96 mg/dL 65-99 Not Available [facility] ([facility]) [address] [place], [address], 06/02/2021 20:08:33 06/01/19 22 06/02/2021 COMP. METAB OLIC PANEL (14) BUN 17 mg/dL 8-27 Not Available [facility] ([facility]) [address] [place], [address], 06/02/2021 20:08:33 06/01/19 22 06/02/2021 COMP. METAB OLIC PANEL (14) creatinine 0.65 mg/dL 0.57-1 .00 Not Available [facility] ([facility]) [address] [place], [address], 06/02/2021 20:08:33 06/01/19 22 06/02/2021 COMP. METAB OLIC PANEL (14) eGFR 99 mL/mi n/1.7 3 >59 In accor dance with recom menda tijayant from the NKF-A SN Task force , [facility] has updat ed its eGFR calcu latio n to the 2020 CKD-E PI creat inine equat ion that estim ates kidne y funct ion witho ut a race varia ble. Not Available [facility] ([facility]) [address] [place], [address], 06/02/2021 20:08:33 06/01/19 22 06/02/2021 COMP. METAB OLIC PANEL (14) BUN/creatini ne ratio 26 12-28 Not Available [facility] ([facility]) [address] [facility], [place], [address], 06/02/2021 20:08:33 06/01/19 22 06/02/2021 COMP. METAB OLIC PANEL (14) sodium 141 mmol/ L 134-14 4 Not Available [facility] ([facility]) [address] [facility], [place], [address], 06/02/2021 20:08:33 06/01/19 22 06/02/2021 COMP. METAB OLIC PANEL (14) potassium 5.2 mmol/ L 3.5-5. 2 Not Available [facility] ([facility]) [address] [facility], [place], [address], 06/02/2021 20:08:33 06/01/19 22 06/02/2021 COMP. METAB OLIC PANEL (14) chloride 103 mmol/ L 96-106 Not Available [facility] ([facility]) [address] [facility], [place], [address], 06/02/2021 20:08:33 06/01/19 22 06/02/2021 COMP. METAB OLIC PANEL (14) carbon dioxide, total 24 mmol/ L 20-29 Not Available [facility] ([facility]) [address] [facility], [place], [address], 06/02/2021 20:08:33 06/01/19 22 06/02/2021 COMP. METAB OLIC PANEL (14) calcium 9.7 mg/dL 8.7-10 .3 Not Available [facility] ([facility]) [address] [facility] [place], [address], 06/02/2021 20:08:33 06/01/19 22 06/02/2021 COMP. METAB OLIC PANEL (14) protein, total 7.0 g/dL 6.0-8. 5 Not Available [facility] ([facility]) [address] [place], [address], 06/02/2021 20:08:33 06/01/19 22 06/02/2021 COMP. METAB OLIC PANEL (14) albumin 4.0 g/dL 3.8-4. 8 Not Available [facility] ([facility]) [address] [facility], [place], [address], 06/02/2021 20:08:33 06/01/19 22 06/02/2021 COMP. METAB OLIC PANEL (14) globulin, total 3.0 g/dL 1.5-4. 5 Not Available [facility] ([facility]) [address] [place], [address], 06/02/2021 20:08:33 06/01/19 22 06/02/2021 COMP. METAB OLIC PANEL (14) A/G ratio 1.3 1.2-2. 2 Not Available [facility] ([facility]) [address] [place], [address], 06/02/2021 20:08:33 06/01/19 22 06/02/2021 COMP. METAB OLIC PANEL (14) bilirubin, total 0.5 mg/dL 0.0-1. 2 Not Available [facility] ([facility]) [address] [place], [address], 06/02/2021 20:08:33 06/01/19 22 06/02/2021 COMP. METAB OLIC PANEL (14) alkaline phosphatase 89 IU/L 44-121 Not Available [facility] ([facility]) [address] [facility], [place], [address], 06/02/2021 20:08:33 06/01/19 22 06/02/2021 COMP. METAB OLIC PANEL (14) AST (SGOT) 14 IU/L 0-40 Not Available [facility] ([facility]) [address] [facility] [place], [address], 06/02/2021 20:08:33 06/01/19 22 06/02/2021 COMP. METAB OLIC PANEL (14) ALT (SGPT) 9 IU/L 0-32 Not Available [facility] ([facility]) [address] [facility] [place], [address], 06/02/2021 20:08:33 06/01/19 22 06/02/2021 LIPID PANEL cholesterol, total 197 mg/dL 100-19 9 Not Available [facility] ([facility]) [address] [facility] [place], [address], 06/02/2021 20:08:34 06/01/19 22 06/02/2021 LIPID PANEL triglyceride s 106 mg/dL 0-149 Not Available [facility] ([facility]) [address] [place], [address], 06/02/2021 20:08:34 06/01/19 22 06/02/2021 LIPID PANEL HDL cholesterol 62 mg/dL >39 Not Available [facility] ([facility]) [address] [facility] [place], [address], 06/02/2021 20:08:34 06/01/19 22 06/02/2021 LIPID PANEL VLDL cholesterol shweta 19 mg/dL 5-40 Not Available [facility] ([facility]) [address] [facility] [place], [address], 06/02/2021 20:08:34 06/01/19 22 06/02/2021 LIPID PANEL LDL chol calc ([facility]) 116 mg/dL 0-99 above high normal Not Available [facility] ([facility]) [address] [facility] [place], [address], 06/02/2021 20:08:34 06/01/19 22 06/02/2021 LIPID PANEL 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 Not Available [facility] ([facility]) [address] [facility], [place], [address], 06/02/2021 20:08:34 06/01/19 22 06/02/2021 HEMOG LOBIN A1C hemoglobin A1C TNP % Test not perfo rmed. No laven jose top tube submi tted. Predi abete s: 5.7 - 6.4 Diabe john: >6.4 Glyce rodolfo contr ol for adult s with diabe john: <7.0 Not Available [facility] ([facility]) [address] [facility], [place], [address], 06/02/2021 20:08:35 06/01/19 22 06/02/2021 VITAM IN [...] um and DNathalie marsh [place]: [facility] . 2. Jonathon k MF, Binkl ey [place], Bisch off-F errar i [place], et al. Evalu ation , treat ment, and preve ntion of vitam in D defic iency : an Endoc rine Socie ty clini shweta pract ice guide line. JCEM. 2010; 96(7) :1911 -30. Not Available [facility] ([facility]) [address] [place], [address], 06/02/2021 20:08:35 06/01/19 22 06/02/[address] PROBL EM request problem TNP Test not perfo rmed. No laven jose top tube submi tted. TEST: 76500 3 Hemog lobin A1c Not Available [facility] ([facility]) [address] [place], [address], 06/02/2021 20:08:36 06/25/19 23 06/29/2022 URINE CULTU RE, ROUTI NE urine culture, routine Final report abnormal Not Available [facility] ([facility]) [address] [place], [address], 06/29/2022 17:10:00 06/25/19 23 06/29/2022 URINE CULTU [...] ng units per mL Not Available [facility] ([facility]) [address] [facility], [place], [address], 06/29/2022 17:10:00 06/25/19 23 06/29/2022 URINE CULTU [...] thopr im/March lfa S Not Available [facility] ([facility]) [address] [facility], [place], [address], 06/29/2022 17:10:00 06/26/19 23 06/25/2022 urina lysis , dipst ick Leukocytes Large Not Available In-Offi ce Order Internal Use Only DO Not Attach Compendium DO Not Attach Compendium, Do Not Delete/merge, [id number] 06/24/2022 11:31:21 06/26/19 23 06/25/2022 urina lysis [...] 06/26/1906/25/2022 urina lysis , dipst ick Specific [place] 1.025 Not Available In-Off ice Order Internal [...] DO Not Attach Compendium, Do Not Delete/merge, [id number] 06/24/2022 11:31:21 06/26/19 23 06/25/2022 urina lysis , dipst ick Color Yellow Not Available In-Office Order Internal Use Only DO Not Attach Compendium DO Not Attach Compendium, Do Not Delete/merge, [id number] 06/24/2022 11:31:21 08/10/1908/10/2022 TSH+F REE T4 TSH 0.089 uIU/m L 0.450- 4.500 below low normal Not Available [facility] ([facility]) [address] [place], [address], 08/10/2022 09:14:55 08/10/1908/10/2022 TSH+F REE T4 T4,free(dire ct) 1.58 NG/dL 0.82-1 .77 Not Available [facility] ([facility]) [address] [place], [address], 08/10/2022 09:14:55 08/10/1908/10/2022 HEMOG LOBIN A1C hemoglobin A1C 5.6 % 4.8-5. 6 Predi abete s: 5.7 - 6.4 Diabe john: >6.4 Glyce rodolfo contr ol for adult s with diabe john: <7.0 Not Available [facility] ([facility]) [address] [facility], [place], [address], 08/10/2022 09:14:55 05/13/1905/13/2020 CT, abdom en + pelvi s, w/ contr ast No observ ation record ed. [facility]) [address] [facility], [place], [address], 05/13/2020 17:21:33 05/13/19 21 05/13/2020 CT, chest , w/ contr ast No observ ation record ed. [facility] [address] [facility], [place], [address], 05/13/2020 17:21:51 06/26/19 22 06/25/2021 CT, angio gram, chest , w/ contr ast No observ ation record ed. [address] [place] [address], [address], 06/26/2021 14:36:35 07/16/19 22 07/15/2021 audio gram No observ ation record ed. [address] [facility] [address] [facility], [place], [address], 07/15/2021 14:39:29 08/04/19 22 08/03/2021 MAMMO , scree chica, bilat eral No observ ation record ed. [facility] [address] [place], [address], 08/13/2021 17:38:54 10/23/19 23 10/21/2022 DEXA No observ ation record ed. [address], [address], 10/28/2022 17:28:46 10/29/19 23 10/21/2022 DEXA No observ ation record ed. [facility]) [address] [place] [address] [address], [address], 10/28/2022 11:50:16 Result Notes None recorded. Problems Name Problem SNOMED Code Status Onset Date Resolution Date Notes Provider Name and Address Organization Details Recorded Time Faustino montoyaen olive 15537438 Active 2019 YADIRA MOSCOSO Attn: Stacia duffy,[address] [facility], [place], [address], [facility] 0 12:33:32 Divertic ulosis of colon 921858505 Active 2019 YADIRA MOSCOSO Attn: Accountin g,[address] [facility], [place], [address], [place] [facility] 0 12:47:22 History of rectal bleeding 53651098231 290692 Completed 201904/26/2019 YADIRA MOSCOSO Attn: Accountsalomon g,[address] [facility], [place], [address], [place] [facility] 0 12:47:58 Hematoch ezia 593863897 Active 2019 YADIRA MOSCOSO Attn: Accountin g,[address] [facility], [place], [address], [place] [facility] 0 12:48:10 Hydronep hrosis 30304177 Active 2019 PRINCE 04/02/19 YADIRA MOSCOSO Attn: Accountsalomon g,[address] [facility], [place], [address], [place] [facility] 0 13:02:54 Lesion of liver 713697057 Active 2019 YDAIRA MOSCOSO Attn: Accountsalomon g,[address] [facility], [place], [address], [place] [facility] 0 12:50:[address] 05101755 Active 2019 YADIRA MOSCOSO Attn: Accountsalomon g,[address] [facility], [place], [address], [place] [facility] 0 13:03:00 Atrophy of left kidney 862028048 Active 2019 YADIRA MOSCOSO Attn: Accountin g,[address] [facility], [place], [address], [place] [facility] 0 13:03:47 Neuropat hy 103071332 Active 2022 Karen Freedman [place] null, [place] [facility] 3 10:56:33 Aneurysm of thoracic aorta 969055319 Active 2022 YADIRA MOSCOSO Attn: Accountin g,[address] [facility] [place], [address], [place] [facility] 3 10:59:15 History of malignan t neoplasm of colon 185851857 Active 2022 YADIRA MOSCOSO Attn: Accountsalomon g,[address] [facility], [place], [address], [place] [facility] 3 11:00:23 Adult lichen sclerosu s 096391041 Active 2022 Dr Funk at [facility]. uses clobetas on YADIRA MOSCOSO Attn: Accountin g,[address] [facility], [place], [address], [place] [facility] 3 11:14:06 Albuminu augusta 072516405 Active 2022 YADIRA MOSCOSO Attn: Accountin g,[address] [facility], [place], [address], [place] [facility] 3 11:41:09 Irritabl e bowel syndrome 05670086 Active 2022 YADIRA MOSCOSO Attn: Accountin g,[address] [facility], [place], [address], [place] [facility] 3 11:41:10 Morbid obesity 684368843 Active 2022 YADIRA MOSCOSO Attn: Accountin g,[address] [facility], [place], [address], [place] [facility] 3 11:43:58 Osteopen ia 520686218 Active 2022 YADIRA MOSCOSO Attn: Accountin g,[address] [facility], [place], [address], [place] [facility] 3 11:45:36 Genital lichen sclerosu s 337165573 Active 2022 YADIRA MOSCOSO Attn: Accountin g,[address] [facility], [place], [address], [place] [facility] 3 11:46:18 Notes:lyjken scerosis. Some problems listed in Documents: #[id number], #[id number] could not be added to this patient's chart. Please review these documents and add these problems to the patient's chart manually as needed. Problem Notes None recorded. Procedures Surgical History Date Name Laterality Status Provider Name and Address Organization Details Recorded Time 1 Date of Last Mammogram completed Karen Freedman MA [facility] 06/01/2021 14:05:06 1 Date of Last Pap Smear completed Karen Freedman MA [facility] 06/01/2021 14:05:09 1 Cryosurgery Warts/Skin Tags completed Valentine Rodriguez [facility] 05/14/2020 11:02:22 0 excision completed Raquel Valentin MA [facility] 08/24/2019 12:33:02 Imaging Results Imaging Date Name Status LastModified by Organiz ation Details LastModified Time 05/13/2020 CT, abdomen + pelvis, w/ contrast completed [facility]) [address] [place], [address], 05/13/2020 17:21:33 05/13/2020 CT, chest, w/ contrast completed [facility]) [address] [place], [address], 05/13/2020 17:21:51 06/25/2021 CT, angiogram, chest, w/ contrast completed [place] [address] [facility] [address] [place] [address], [address], 06/26/2021 14:36:35 07/15/2021 audiogram completed [address] [facility] [address] [place], [address], 07/15/2021 14:39:29 08/03/2021 MAMMO, screening, bilateral completed [facility] [address] [place], [address], 08/13/2021 17:38:54 10/21/2022 DEXA completed [facility] [address] [facility] [address], [place], [address], 10/28/2022 17:28:46 10/21/2022 DEXA completed JUST[facility] ([facility]) [address] [facility] [address], [place], [address], 10/28/2022 11:50:16 Procedure Notes None recorded. Medical [...] Updated DateTime 2 160.02 cm 40.8 kg/m2 329310. 35 g 62 /min 99 % 99 % 98 [degF] 122 mm[Hg] 86 mm[Hg] Karen Freedman MA [facility] 2 14:09:51 Date Recorded Body height Body mass index (BMI) Body weight Heart rate Oxygen saturation Oxygen saturation in Arterial blood by Pulse oximetry Systolic blood pressure Diastolic blood pressure Provider Name and Address Organization Details Last Updated DateTime 3 160.02 cm 40 kg/m2 876048. 88 g 53 /min 99 % 99 % 148 mm[Hg] 100 mm[Hg] Karen Freedman MA [facility] 3 10:59:00 Social History Question Answer Notes LastModified by Organizat ion Details LastModified Time Tobacco Smoking Status Never Smoker Annabelle Love MA [facility], [facility] 04/26/2019 11:48:24 What Is Your Level Of [...] Response Coronary Artery Disease N Other N Atrial Fibrillation N High Blood Pressure Y Depression N COPD N Blood Clots N Anxiety Disorder N Muscle, Joint, or Bone Problems N Acid Reflux (GERD) N Cancer Y Stroke N High Cholesterol N Liver Disease N Headaches N Kidney or Bladder Problems Y Thyroid Problems N GI Problems Skin Problems N Anemia Y Heart Attack (DC) N Diabetes N Seizures/Epilepsy N Asthma N Allergies N Hepatitis N Heart Failure N Osteoporosis Y Gynecological [...] SNOMED-CT Code Diagnosis ICD10 Code Diagnosis Note [id number] YADIRA MOSCOSO [facility] [address] [place] [address] 04/26/2019 11:29:49 04/27/2019 12:23:17 Adult health examination 697773188 Z00.01 Patient presents for health examinatio and establish as new patient. Essential hypertension 54151221 I10 Patient BP 124/84, WNL. Sees cardiologi Dr daniel Heng, at [place]. drug regiment: lisinopril 10 mg Advised to check BP regularly with a goal of <140/90, if BP consistent ly >140/90, advised to contact clinic Discussed DASH diet Advised 30 minutes of exercise minimum daily Advised tobacco, alcohol, caffeine all increase BP Advised goal for BP is <140/90 Obese 014747905 E66.9 Patient has lost 60 lbs since 2017. She drink 3 glasses of water per day. She has soda occasional ly. She eat her veggies and is watching her carbs. exercises 2x per week. - TSH- continue diet- cut out sugary drinks Hematochezia 277488819 K 92.1 Patient has been having rectal bleeding. She is f/u with rectal specialist next month at [facility], Dr bundy appointmen t may 08. Colonoscop y normal. Hydroureter [id number] N13 .4 nephrologlakeisha daniel would like her to see urology as she has left kidney atrophy likely due to radiation therapy back in 1999 for colorectal cancer. MRI 04/02/19 shows left kidney atrophy, hydronephr osis and hydrourete r. Nephrologlakeisha daniel states she may need to have a stent placed. Lesion of liver 70600314 [address] scan in June to f/u on nodule of liver. Per MRI on 04/02/19 it is likely a hemangioma . [id number] YADIRA MOSCOSO [facility] [address] [place] [address] 05/24/2019 11:02:32 05/25/2019 09:08:18 Lesion of nose 145433914 J34.89 patient has lesion on tip of nose on left side. area is darker patch with some telangiect asias. area has uneven borders. She also has mole on right side of chest that she says is changing. - advised patient to see dermatolog y for skin check and she has many moles [id number] YADIRA MOSCOSO [facility] [address] [place] [address] 07/26/2019 15:50:08 07/30/2019 09:57:41 Candidiasis of vagina 52395951 B37.3 Patient seen by urologist today and diagnosed with vaginal candidiasi s. He would not provide treatment and had her f/u here. - diflucan 150 mg once- f/u if no improvemen t- avoid pads or change often, keep area dry, wear lose clothing [id number] YADIRA MOSCOSO [facility] [address] [place] [address] 10/03/2019 10:36:16 10/04/2019 14:28:43 Deep venous thrombosis of lower extremity 473257546 I82.409 patient presents with two days of right ankle swelling and pain when walking. She states her veins are bad and she sees a lump in one of the veins. She denies erythema, drainage, temperatur e change, fever, CP, sob. - US ankle- compressio n socks- excercise [id number] YADIRA MOSCOSO [facility] [address] [place] [address] 04/24/2020 08:06:18 04/25/2020 16:49:11 Neuropathy 055904710 G62.9 right leg numbness, swelling, pain from hip to leg or knee down to leg. foot is numb. when standing still feels like water is running down leg. no instabilit y or foot drop. Not falling or tripping. - following with cardiology - following already with vein specialist - sending referral for neurology due to neuropathy [id number] [facility] [address] [place] [address] 05/14/2020 10:39:11 05/15/2020 10:57:21 Actinic keratosis 659059694 L57.0 Epidermoid cyst 54927292 6 L72.0 Asymptomat ic [id number] [facility] [address] [place] [address] 12/10/2020 10:55:19 12/11/2020 09:05:58 Epidermoid cyst 831645756 L72.0 Affecting the right orbit Scar 855413609 L90.5 Resolved Actinic Keratoses [id number] YADIRA MOSCOOS [facility] [address] [place] [address] 06/01/2021 13:56:39 06/02/2021 09:42:48 Morning headache [id number] R51.9 right side but if flat less pain. has improved due to improved . Morbid obesity [id number] E66.01 BMI 40.8 Fatigue 04385992 R53.83 6 months having fatigue . [place] after waking up daily. will see neuro for [place]. Hearing lo ss of right ear [id number] H91.91 unable to hear well out of right ear. [id number] Karen Freedman MA [facility] [address] [place] [address] 06/24/2022 11:22:47 06/24/2022 11:45:58 Acute urinary tract infection [id number] N39.0 [id number] YADIRA MOSCOSO [facility] [address] [place] [address] 08/09/2022 10:47:49 08/09/2022 11:30:43 Osteopenia [id number] M85.80 will stop alendronat e, takig it for 3 years Essential hypertension 75614561 I10 not controlled today, sates she is nervouswil l check at home and may need to increase lisinopril denies cp, sob, palpitatio ns drug regiment: lisinopril 10 mg, metoprolol 25 mg (1/2 tab bid) Cholesterol screening 27 [id number] Z13.220 Morbid obesity 488070460 E66.01 BMI 40.8 Irritable bowel syndrome 38703444 K58.9 referred to GI. would like me to send referral to make sure they have it. Albuminuria 221617853 R8 0.9 478 07/2022 Genital li khanna sclerosus [id number] L90.0 following obgynusing clobetasol bid Health Concerns Section Related Observation LastModified by Organization Detai ls LastModified Time None Recorded Concern Status LastModified by Organization Details LastModified Time None Recorded Advance Directives Directive None Recorded Payers Encounter Date Sequence Insurance Name Policy Number Policy Keith Covered Member ID Keith Member ID Guarantor Name 05/14/2020 1 [facility] (MEDICAID HMO) [id number] Lexii Kim [id number] Lexii Kim 12/10/2020 1 [employer] [facility] [place] ([place] [id number] Lexii Kim [id number] Lexii Kim 06/01/2021 1 [facility] (MEDICAID HMO) [id number] Lexii Kim [id number] Lexii Kim 06/24/2022 1 [facility] (MEDICAID HMO) [id number] Lexii Kim [id number] Lexii Kim 08/09/2022 1 [employer] [facility] [facility] [place] ([place] [id number] Lexii Kim [id number] Lexii Kim Notes Date Note Type Note [...] patient up. YADIRA MOSCOSO Attn: Accounting[address] [place], [address], [facility] 06/12/2021 16:44:59 08/09/2022 text/html Lexii is a 62 YO F pmhxz colon cancer s/p radiation (1999), thoracic aortic aneurysm, IBS, vaginal lichen sclerosis, hydronephrosis, hydroureter, albuminuria, hx of osteopenia presenting for f/uPatient is active. 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 states diarrhea has been worse. Stress [...] cream bid. YADIRA MOSCOSO Attn: Accounting[address] [place], [address], [facility] 08/09/2022 11:47:11 OBGyn Episode No OBEpisode recorded.
--- OUTSIDE RECORDS SUMMARY | 2024-07-04 08:06 | XMS_ITS | Clinical Summary ---
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 Not on file Not on file Not on file Last Filed Vital Signs Vital Sign Reading Time Taken Comments Blood Pressure 107/68 03/15/2019 5:30 PM BOX TRUCK DRIVER Pulse 66 03/15/2019 5:30 PM BOX TRUCK DRIVER Temperature 36.4 C (97.6 F) 03/15/2019 3:26 PM BOX TRUCK DRIVER Respiratory Rate 20 03/15/2019 3:26 PM BOX TRUCK DRIVER Oxygen Saturation 99% 03/15/2019 5:30 PM BOX TRUCK DRIVER Inhaled Oxygen Concentration - - Weight 88.5 kg (195 lb) 03/15/2019 3:26 PM BOX TRUCK DRIVER Height 160 cm (5' 3 ) 03/15/2019 3:26 PM BOX TRUCK DRIVER Body Mass Index 34.54 03/15/2019 3:26 PM BOX TRUCK DRIVER Plan of Treatment Health Maintenance Due Date [...] is made to exams dated: [facility]2020[facility] [facility]. BREAST TISSUE:There are scattered fibroglandular densities [...] exam. Electronically signed by: Norman flores/penrad:08/03/2021 13:12:50 Integration Assistant(s): Aundrea Rubio(Sofia)(M), [facility] letter sent: Normal Exam Reading location: [facility] BI-RADS: 1 Negative Procedure Note Norman Rice [...] is made to exams dated: 07/30/2020, 03/12/2019 [facility], and 05/28/2015 [facility]. BREAST TISSUE:There are scattered fibroglandular densities [...] exam. Electronically signed by: Norman flores/penrad:08/03/2021 13:12:50 Integration Assistant(s): Aundrea Rubio(Sofia)(M), [facility] letter sent: Normal Exam Reading location: [facility] BI-RADS: 1 Negative us Ragini BAUM IMG MAMMO ORDERABLES Final R esult * HM COLONOSCOPY (07/04/2012) us Historical Provider MD PROCEDURE/MINOR SURGICAL ORDERABLES Final Result from Last 3 Months or Most Recently Relevant to Health Maintenance Insurance [place]ICAID [place] Care Teams Divine Healer Relationship Specialty Start Date End Date Ragini Baumann PAC [address] [place] [address] PCP - General Physician Word Processing Specialist 05/14/19
--- OUTSIDE RECORDS SUMMARY | 2024-07-04 08:06 | XMS_ITS | Clinical Summary ---
Author Organization [facility] Address [address] [facility] [place] [address] Care Team Providers Care Manager Of Product Name Role Phone Ragini Baumann PA-C Primary Care Provider Source Comments [facility],non-owned Affiliates and Associated Physician Practices is amultiple site organization consisting of ambulatory clinics and hospital sitesin [place], [place], [place] and [place]. This disclosure is being madepursuant to the Care Everywhere program and may not contain all information available regarding this patient. Last updated 17.[facility] Allergies No known active allergies Medications * [...] area 2 times daily Active nystatin (Mycostatin) [id number] UNIT/GM ointmentIndications: Lichen sclerosus et atrophicus of [...] complete this topic MENINGOCOCCAL (Group B) VACCINE SHARED DECISION-MAKING Aged Out No longer eligible based on patient's age to complete this topic MENINGOCOCCAL GROUPS A/C/Y/W VACCINE Aged Out No longer eligible based on patient's age to complete this topic Care Teams Manager Of Product Relationship Specialty Start Date End Date Ragini Baumann PA-C [address] [place] [phone] [facility] - General 06/16/22
--- OUTSIDE RECORDS SUMMARY | 2024-07-04 08:06 | XMS_ITS | Clinical Summary ---
Author Organization [facility] Facility Address [address] [address] Care Team Providers Care Hazardous Materials Tanker Driver Name Role Phone Ragini Baumann PA-C Primary [...] patient's age to complete this topic Insurance [place] Care Teams Hazardous Materials Tanker Driver Relationship Specialty Start Date End Date Ragini Baumann PA-C [address] [place] [address] PCP - General Physician Can Coverer 12/12/20
--- OUTSIDE RECORDS SUMMARY | 2024-07-04 08:06 | XMS_ITS | Encounter Summary ---
Author Organization [facility] Address [facility] [place] [address] Care Team Providers Care Manager Process Improvement Name Role Phone Jenelle GarciaJOCELYN Primary Care Provider + Encounter Details Date Type Department Care Team (Late st Contact Info) Description 06/15/2024 Ateedat Message Enc [facility] Family & Internal Medicine [address] [address] Jenelle Garcia FNP-BC [id number] [place] [address], [address] [place] [address] Blood Pressure medication change Social History Tobacco Use Types Packs/Day Years Used Date Smoking Tobacco: Never Smokeless Tobacco: Never Alcohol Use Standard Drinks/Week Comments Not Currently 0 (1 standard drink = 0.6 oz pur e alcohol) PHQ-2 Answer Date Recorded Patient Health Questionnaire-2 Score 0 05/10/2024 Comments No Sex and Gender Information Value Date Recorded Sex Assigned at Female 05/10/2024 2:04 PM OFFSET PRESS OPERATOR HELPER Legal Sex Female 6:43 PM CDT Gender Identity Female 05/10/2024 2:04 PM OFFSET PRESS OPERATOR HELPER Sexual Orientation Not on file documented as of this encounter Progress Notes * XENIA Coe - 06/15/2024 10:31 AM CDT Noted. Thank you. I would imagine he may want to hold off on resuming lisinopril for a few days to see how your blood pressure responds. * Tigist Pierre MA - 06/15/2024 9:40 AM CDT Please advise documented in this encounter Plan of Treatment Upcoming Encounters Date Type Department Care Team (Late st Contact Info) Description 08/08/2024 10:20 AM CDT Office Visit [facility] Family & Internal Medicine [facility] [address] [place] [address] Jenelle Garcia FNP-BC [address] [facility], [address] [address] documented as of this encounter Visit Diagnoses Not on filedocumented in this encounter Additional Health Concerns Assessment Noted Time PHQ-9 Depression Total Score: 0 05/10/19 25 2:03 PM OFFSET PRESS OPERATOR HELPER documented as of this encounter Care Teams Manager Process Improvement Relationship Specialty Start Date End Date Jenelle Garcia FNP-BC [address] [facility], [address] [address] PCP - General Nurse Practitioner Family 05/09/24 documented as of this encounter
== END 2024-07-04 07:59 | disposition home or self-care (01) ==
PROVIDERS: Visit Provider Internal Medicine Cardiovascular Disease
DX: I71.20 Thoracic aortic aneurysm, without rupture, unspecified (principal); N13.30 Unspecified hydronephrosis; N26.1 Atrophy of kidney (terminal); K44.9 Diaphragmatic hernia without obstruction or gangrene
CPT/HCPCS: 71275; Q9967